=== PATIENT | female | born 1975 | race American Indian/Alaskan Native ===

== ENCOUNTER 2017-03-04 00:15 | Inpatient (IN) | payer OTHER, MEDICARE ==
[2017-03-04] MEDS ORDERED: ATIVAN ONE (01:25)
[2017-03-04] MEDS ORDERED: VALIUM ONE (01:29)
[2017-03-04] MEDS ORDERED: SUBLIMAZE IV ONE ×2 (01:41)
[2017-03-04] MEDS ORDERED: VALIUM IV ONE (01:42)
[2017-03-04] MEDS ORDERED: VERSED IV NR (02:00)
[2017-03-04 02:23] LABS: Hematocrit 42.6 % (30.3-42.9); Hemoglobin 13.7 gm/dl (10.1-14.3); Mean Corpuscular HGB Conc 32 % (30-34); Mean Corpuscular Hemoglobin 27 pg (28-32); Mean Corpuscular Volume 83 fl (79-97); Platelet Count 276 K/mm3 (140-440); Red Blood Count 5.11 M/mm3 (3.65-5.03); Red Cell Distribution Width 13.9 % (13.2-15.2); White Blood Count 5.7 K/mm3 (4.5-11.0)
--- NOTE | 2017-03-04 02:32 | Emergency Department Report ---
ED Seizure HPI - General Chief Complaint: Seizure Stated Complaint: SEIZURE Time Seen by Provider: 03/04/17 01:27 Source: patient, family, EMS Mode of arrival: Stretcher Limitations: Altered Mental Status - History of Present Illness Initial Comments: 41 year old female a past medical history of metastatic breast cancer (stage IV ) patient and family denies metastases to the brain, CHF, CVA, diabetes, CAD, and seizures presents to the hospital complains of multiple seizures prior to arrival. Patient apparently had 7 seizures and 45 minutes. Per EMS patient have a seizure-like activity will purposeful movements. Family members report with the first 4 seizures patient was unresponsive between but then was responsive between subsequent seizures. No post ictal state noted upon patient arrival and patient noted to have a eighth seizure here which was also described by RN as purposeful movements. Family states that patient has seizures when she is in significant pain. She was complaining of pain to her legs prior to seizure episodes. Patient also received news today that there was no further treatment to be offered for her breast cancer and hospice was recommended. Patient has been treated with chemotherapy and radiation past and is currently taking some chemotherapy pill treatment. Patient resides in [place] however her cancer doctor is located here in [facility]. This is her first visit to [facility]. Patient has multiple allergies. Patient takes multiple meds but does not have her med list with her. Patient is a retired nurse. She states she takes Topamax for seizures (and has been compliant) and takes multiple narcotics including Roxicodone, oxycodone, and Vicodin. 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 Patient is requesting fentanyl 75 g for seizures and pain relief. She states that Dilaudid does not manage her pain. Patient received Versed in route and Valium after arrival to the hospital. Patient took her Topamax 400 mg this evening. Patient also has been noncompliant with her insulin 1 year does not take any oral diabetes medication - Related Data Allergies Allergy/AdvReac Type Severity Reaction Status Date / Time albuterol Allergy Anaphylaxis Verified 03/04/17 01:21 aripiprazole [From Abilify] Allergy Anaphylaxis Verified 03/04/17 01:09 bee venom protein (honey bee) Allergy Anaphylaxis Verified 03/04/17 01:09 black pepper Allergy Anaphylaxis Verified 03/04/17 01:21 cocoa butter Allergy Anaphylaxis Verified 03/04/17 01:21 coconut Allergy Anaphylaxis Verified 03/04/17 01:21 iodine Allergy Anaphylaxis Verified 03/04/17 01:09 ketorolac [From Toradol] Allergy Anaphylaxis Verified 03/04/17 01:09 latex Allergy Anaphylaxis Verified 03/04/17 01:09 morphine Allergy Anaphylaxis Verified 03/04/17 01:09 nalbuphine [From Nubain] Allergy Anaphylaxis Verified 03/04/17 01:21 onion Allergy Anaphylaxis Verified 03/04/17 01:21 peanut Allergy Anaphylaxis Verified 03/04/17 01:21 Penicillins Allergy Anaphylaxis Verified 03/04/17 01:09 pregabalin [From Lyrica] Allergy Anaphylaxis Verified 03/04/17 01:21 procaine [From Novocain] Allergy Anaphylaxis Verified 03/04/17 01:09 sulfamethoxazole Allergy Anaphylaxis Verified 03/04/17 01:21 [From Bactrim] tramadol Allergy Anaphylaxis Verified 03/04/17 01:09 trimethoprim [From Bactrim] Allergy Anaphylaxis Verified 03/04/17 01:21 watermelon Allergy Anaphylaxis Verified 03/04/17 01:21 pepperoni Allergy Anaphylaxis Uncoded 03/04/17 01:21 salami Allergy Anaphylaxis Uncoded 03/04/17 01:21 ED Review of Systems ROS: Stated complaint: SEIZURE Other details as noted in HPI Comment: Unobtainable due to pts medical conditions (patient is somewhat drowsy answer some questions) ED Past Medical Hx - Past Medical History Previous Medical History?: Yes Hx CVA: Yes Hx Heart Attack/AMI: Yes Hx Congestive Heart Failure: Yes Hx Diabetes: Yes Hx of Cancer: Yes (multiple mets) Hx Seizures: Yes - Social History Smoking Status: Never Smoker Substance Use Type: Alcohol ED Physical Exam - General Limitations: No Limitations - Other Other exam information: General: No limitations, patient is alert in no acute distress Head exam: Atraumatic, normocephalic Eyes exam: Normal appearance, pupils equal reactive to light, extraocular movements intact ENT: Moist mucous membrane, normal oropharynx Neck exam: Normal inspection, full range of motion, no meningismus nontender Respiratory exam: Clear to auscultation bilateral, no wheezes, rales, crackles Cardiovascular: Normal rate and rhythm Abdomen: Soft, nondistended, and nontender, with normal bowel sounds, no rebound, or guarding Extremity: Full range of motion normal inspection no deformity Back: Normal Inspection, full range of motion, no tenderness Neurologic: Drowsy but arousable to voice and tactile stimulation, no facial droop, no slurred speech, equal hand health policy manager referred dorsiflexion Psychiatric: normal affect, normal mood Skin: Warm, dry, intact ED Course Vital Signs 03/04/17 03/04/17 03/04/17 02:10 02:30 03:19 Pulse Rate 91 H 86 Respiratory 18 19 Rate Blood Pressure 112/72 112/72 O2 Sat by Pulse Oximetry 03/04/17 03/04/17 03/04/17 03:30 03:45 04:00 Pulse Rate 82 85 70 Respiratory 18 18 18 Rate Blood Pressure 92/57 92/58 77/38 O2 Sat by Pulse 93 Oximetry 03/04/17 03/04/17 04:15 04:45 Pulse Rate 70 75 Respiratory 20 20 Rate Blood Pressure 83/45 83/56 O2 Sat by Pulse 100 Oximetry ED Medical Decision Making - Lab Data Result diagrams: 03/04/17 01:53 03/04/17 01:53 Lab Results 03/04/17 03/04/17 03/04/17 Range/Units 01:53 01:53 01:53 WBC 5.7 (4.5-11.0) K/mm3 RBC 5.11 H (3.65-5.03) M/mm3 Hgb 13.7 (10.1-14.3) gm/dl Hct 42.6 (30.3-42.9) % MCV 83 (79-97) fl MCH 27 L (28-32) pg MCHC 32 (30-34) % RDW 13.9 (13.2-15.2) % Plt Count 276 (140-440) K/mm3 Lymph % (Auto) Hydro Plant Operator Add Manual Diff Complete Total Counted 100 Seg Neutrophils % Hydro Plant Operator Seg Neuts % (Manual) 31.0 L (40.0-70.0) % Band Neutrophils % 0 % Lymphocytes % (Manual) 63.0 H (13.4-35.0) % Reactive Lymphs % (Man) 0 % Monocytes % (Manual) 6.0 (0.0-7.3) % Eosinophils % (Manual) 0 (0.0-4.3) % Basophils % (Manual) 0 (0.0-1.8) % Metamyelocytes % 0 % Myelocytes % 0 % Promyelocytes % 0 % Blast Cells % 0 % Nucleated RBC % Not Reportable Seg Neutrophils # Man 1.8 (1.8-7.7) K/mm3 Band Neutrophils # 0.0 K/mm3 Lymphocytes # (Manual) 3.6 (1.2-5.4) K/mm3 Abs React Lymphs (Man) 0.0 K/mm3 Monocytes # (Manual) 0.3 (0.0-0.8) K/mm3 Eosinophils # (Manual) 0.0 (0.0-0.4) K/mm3 Basophils # (Manual) 0.0 (0.0-0.1) K/mm3 Metamyelocytes # 0.0 K/mm3 Myelocytes # 0.0 K/mm3 Promyelocytes # 0.0 K/mm3 Blast Cells # 0.0 K/mm3 WBC Morphology Not Reportable Hypersegmented Neuts Not Reportable Hyposegmented Neuts Not Reportable Hypogranular Neuts Not Reportable Smudge Cells Not Reportable Toxic Granulation Not Reportable Toxic Vacuolation Not Reportable Dohle Bodies Not Reportable Pelger-Huet Anomaly Not Reportable Melissa Rods Not Reportable Platelet Estimate Consistent w auto Clumped Platelets Not Reportable Plt Clumps, EDTA Not Reportable Large Platelets Not Reportable Giant Platelets Not Reportable Platelet Satelliting Not Reportable Plt Morphology Comment Not Reportable RBC Morphology Not Reportable Dimorphic RBCs Not Reportable Polychromasia Not Reportable Hypochromasia Not Reportable Poikilocytosis Not Reportable Anisocytosis Not Reportable Microcytosis Not Reportable Macrocytosis Not Reportable Spherocytes Not Reportable Pappenheimer Bodies Not Reportable Sickle Cells Not Reportable Target Cells Not Reportable Tear Drop Cells Not Reportable Ovalocytes Not Reportable Helmet Cells Not Reportable [place] Bodies Not Reportable Plato Rings Not Reportable Adarsh Cells Not Reportable Bite Cells Not Reportable Crenated Cell Not Reportable Elliptocytes Not Reportable Acanthocytes (Spur) Not Reportable Rouleaux Not Reportable Hemoglobin C Crystals Not Reportable Schistocytes Not Reportable Malaria parasites Not Reportable Phillip Bodies Not Reportable Hem Pathologist Commnt No Sodium 137 (137-145) mmol/L Potassium 4.3 (3.6-5.0) mmol/L Chloride 95.9 L (98-107) mmol/L Carbon Dioxide 21 L (22-30) mmol/L Anion Gap 24 mmol/L BUN 11 (7-17) mg/dL Creatinine 0.9 (0.7-1.2) mg/dL Estimated GFR > 60 ml/min BUN/Creatinine Ratio 12 % Glucose 457 H (65-100) mg/dL POC Glucose (70-105) Calcium 9.3 (8.4-10.2) mg/dL Magnesium 2.10 (1.7-2.3) mg/dL Total Creatine Kinase 60 (30-135) units/L Urine Color (Yellow) Urine Turbidity (Clear) Urine pH (5.0-7.0) Ur Specific [place] (1.003-1.030) Urine Protein (Negative) mg/dL Urine Glucose (UA) (Negative) mg/dL Urine Ketones (Negative) mg/dL Urine Blood (Negative) Urine Nitrite (Negative) Urine Bilirubin (Negative) Urine Urobilinogen (<2.0) mg/dL Ur Leukocyte Esterase (Negative) Urine WBC (Auto) (0.0-6.0) /HPF Urine RBC (Auto) (0.0-6.0) /HPF U Epithel Cells (Auto) (0-13.0) /HPF 03/04/17 03/04/17 Range/Units 03:27 03:29 WBC (4.5-11.0) K/mm3 RBC (3.65-5.03) M/mm3 Hgb (10.1-14.3) gm/dl Hct (30.3-42.9) % MCV (79-97) fl MCH (28-32) pg MCHC (30-34) % RDW (13.2-15.2) % Plt Count (140-440) K/mm3 Lymph % (Auto) Add Manual Diff Total Counted Seg Neutrophils % Seg Neuts % (Manual) (40.0-70.0) % Band Neutrophils % % Lymphocytes % (Manual) (13.4-35.0) % Reactive Lymphs % (Man) % Monocytes % (Manual) (0.0-7.3) % Eosinophils % (Manual) (0.0-4.3) % Basophils % (Manual) (0.0-1.8) % Metamyelocytes % % Myelocytes % % Promyelocytes % % Blast Cells % % Nucleated RBC % Seg Neutrophils # Man (1.8-7.7) K/mm3 Band Neutrophils # K/mm3 Lymphocytes # (Manual) (1.2-5.4) K/mm3 Abs React Lymphs (Man) K/mm3 Monocytes # (Manual) (0.0-0.8) K/mm3 Eosinophils # (Manual) (0.0-0.4) K/mm3 Basophils # (Manual) (0.0-0.1) K/mm3 Metamyelocytes # K/mm3 Myelocytes # K/mm3 Promyelocytes # K/mm3 Blast Cells # K/mm3 WBC Morphology Hypersegmented Neuts Hyposegmented Neuts Hypogranular Neuts Smudge Cells Toxic Granulation Toxic Vacuolation Dohle Bodies Pelger-Huet Anomaly Melissa Rods Platelet Estimate Clumped Platelets Plt Clumps, EDTA Large Platelets Giant Platelets Platelet Satelliting Plt Morphology Comment RBC Morphology Dimorphic RBCs Polychromasia Hypochromasia Poikilocytosis Anisocytosis Microcytosis Macrocytosis Spherocytes Pappenheimer Bodies Sickle Cells Target Cells Tear Drop Cells Ovalocytes Helmet Cells [place] Bodies Plato Rings Keyser Cells Bite Cells Crenated Cell Elliptocytes Acanthocytes (Spur) Rouleaux Hemoglobin C Crystals Schistocytes Malaria parasites Phillip Bodies Hem Pathologist Commnt Sodium (137-145) mmol/L Potassium (3.6-5.0) mmol/L Chloride (98-107) mmol/L Carbon Dioxide (22-30) mmol/L Anion Gap mmol/L BUN (7-17) mg/dL Creatinine (0.7-1.2) mg/dL Estimated GFR ml/min BUN/Creatinine Ratio % Glucose (65-100) mg/dL POC Glucose 385 H (70-105) Calcium (8.4-10.2) mg/dL Magnesium (1.7-2.3) mg/dL Total Creatine Kinase (30-135) units/L Urine Color Yellow (Yellow) Urine Turbidity Clear (Clear) Urine pH 6.0 (5.0-7.0) Ur Specific [place] 1.010 (1.003-1.030) Urine Protein <15 mg/dl (Negative) mg/dL Urine Glucose (UA) >=500 (Negative) mg/dL Urine Ketones Neg (Negative) mg/dL Urine Blood Neg (Negative) Urine Nitrite Pos (Negative) Urine Bilirubin Neg (Negative) Urine Urobilinogen < 2.0 (<2.0) mg/dL Ur Leukocyte Esterase Neg (Negative) Urine WBC (Auto) 1.0 (0.0-6.0) /HPF Urine RBC (Auto) 2.0 (0.0-6.0) /HPF U Epithel Cells (Auto) < 1.0 (0-13.0) /HPF - Radiology Data Radiology results: report reviewed (ct head: naf) - Medical Decision Making Patient is still receiving 500 mL bolus at disposition for hypotension likely induced by benzos and fentanyl. No other overt signs of sepsis. Macrobid order for UTI patient states she feels terrible and therefore will be admitted to the hospital for further treatment. Patient does not know her ejection fraction but thinks is in the middle range. Patient has hyperglycemia but no ketones in the urine suggestive of DKA - Differential Diagnosis pseudoseizures, electrolyte abnormality, brain metastases, Critical Care Time: No Critical care attestation.: If time is entered above; I have spent that time in minutes in the direct care of this critically ill patient, excluding procedure time. ED Disposition Clinical Impression: Metastatic breast cancer, Recurrent seizures, Chronic pain, UTI (urinary tract infection), Uncontrolled diabetes mellitus, Noncompliance with medication regimen Disposition: 09 OP ADMIT IP TO THIS HOSP Is pt being admited?: Yes Does the pt Need Aspirin: No Condition: Stable Time of Disposition: 05:06 (Dr Morales/hosp)
[2017-03-04 02:36] LABS: Anion Gap 24 mmol/L; BUN/Creatinine Ratio 12; Blood Urea Nitrogen 11 mg/dL (7-17); Calcium 9.3 mg/dL (8.4-10.2); Carbon Dioxide 21 mmol/L (22-30); Chloride 95.9 mmol/L (98-107); Glucose 457 mg/dL (65-100); Potassium 4.3 mmol/L (3.6-5.0); Sodium 137 mmol/L (137-145)
--- NOTE | 2017-03-04 02:55 | Cat Scan Report ---
FINAL REPORT EXAM: CT HEAD/BRAIN WO CON HISTORY: multiple sz, hx of metastatic breast ca TECHNIQUE: Routine axial images were obtained of the brain without IV contrast. There are no previous studies available for comparison. FINDINGS: There are no attenuation abnormalities. The ventricular system is appropriate in size and is symmetric. The posterior fossa structures appear normal. The visualized sinuses are clear. The mastoid air cells are well pneumatized IMPRESSION: Normal exam.
[2017-03-04] MEDS ORDERED: NACL 0.9% 500 ML 500 ML IV ONE (03:39)
[2017-03-04] MEDS ORDERED: ZOFRAN ONE (04:11)
[2017-03-04 04:30] LABS: Bilirubin,Urine NEG (Negative); Blood,Urine NEG (Negative); Ketones,Urine NEG (Negative); Leukocyte Esterase,Urine NEG (Negative); Nitrite,Urine POS (Negative); Protein,Urine <15 mg/dL mg/dL (Negative); Urobilinogen,Urine < 2.0 mg/dL (<2.0)
[2017-03-04] MEDS ORDERED: ZOFRAN IV ONE (04:30)
[2017-03-04 04:37] LABS: Basophils % (Manual) 0 % (0.0-1.8); Blastocytes % (Manual) 0 %; Diff Status Complete; Eosinophils % (Manual) 0 % (0.0-4.3); Platelet Estimate Consistent w Auto
[2017-03-04] MEDS ORDERED: MACROBID PO ONE (05:00)
[2017-03-04] MEDS ORDERED: TYLENOL PO PRN (05:59)
[2017-03-04] MEDS ORDERED: ZOFRAN IV PRN (05:59)
[2017-03-04] MEDS ORDERED: D50W (25GM) Syringe IV PRN (06:12)
--- NOTE | 2017-03-04 06:17 | History and Physical Report ---
History of Present Illness Date of examination: 03/04/17 History of present illness: 41-year-old woman with a history of metastatic breast cancer, CHF, CVA, seizure , diabetes was brought to the emergency room because she had multiple seizure at home. Patient states she does not recall events after. emergency room physician she had 7 seizures prior to arrival, 1 in the emergency room, purposeful movements during the seizure described by EMS and by the nurse in the emergency room. There was no postictal state. Patient was told today that she needs to consider hospice secondary to breast cancer Review Of Systems: Constitutional: no weight loss Ears, eyes, nose, mouth and throat: no nasal congestion, no nasal discharge, no sinus pressure, blurry vision, diplopia Neck: No neck pain or rigidity. Cardiovascular: chest pain, orthopnea, palpitations Respiratory: No shortness of breath, cough Gastrointestinal: abdominal pain, hematochezia Genitourinary : no dysuria, frequency , hematuria Musculoskeletal: no muscle ache Integumentary: no rash, no pruritis Neurological: no parathesias, focal weakness Endocrine: no cold or heat intolerance, no polyuria or polydipsia Hematologic/Lymphatic: no easy bruising, no easy bleeding, no gland swelling Allergic/Immunologic: no urticaria, no angioedema. PAST MEDICAL HISTORY:metastatic breast cancer, CHF, CVA, seizure, diabetes PAST SURGICAL HISTORY: Total hysterectomy, lumpectomy on the left, cholecystectomy FAMILY HISTORY: Hypertension SOCIAL HISTORY: Denies alcohol, tobacco, drugs Medications and Allergies Allergies Allergy/AdvReac Type Severity Reaction Status Date / Time albuterol Allergy Anaphylaxis Verified 03/04/17 01:21 aripiprazole [From Abilify] Allergy Anaphylaxis Verified 03/04/17 01:09 bee venom protein (honey bee) Allergy Anaphylaxis Verified 03/04/17 01:09 black pepper Allergy Anaphylaxis Verified 03/04/17 01:21 cocoa butter Allergy Anaphylaxis Verified 03/04/17 01:21 coconut Allergy Anaphylaxis Verified 03/04/17 01:21 iodine Allergy Anaphylaxis Verified 03/04/17 01:09 ketorolac [From Toradol] Allergy Anaphylaxis Verified 03/04/17 01:09 latex Allergy Anaphylaxis Verified 03/04/17 01:09 lidocaine Allergy Anaphylaxis Verified 03/04/17 05:34 morphine Allergy Anaphylaxis Verified 03/04/17 01:09 nalbuphine [From Nubain] Allergy Anaphylaxis Verified 03/04/17 01:21 onion Allergy Anaphylaxis Verified 03/04/17 01:21 peanut Allergy Anaphylaxis Verified 03/04/17 01:21 Penicillins Allergy Anaphylaxis Verified 03/04/17 01:09 pregabalin [From Lyrica] Allergy Anaphylaxis Verified 03/04/17 01:21 procaine [From Novocain] Allergy Anaphylaxis Verified 03/04/17 01:09 sulfamethoxazole Allergy Anaphylaxis Verified 03/04/17 01:21 [From Bactrim] tramadol Allergy Anaphylaxis Verified 03/04/17 01:09 trimethoprim [From Bactrim] Allergy Anaphylaxis Verified 03/04/17 01:21 watermelon Allergy Anaphylaxis Verified 03/04/17 01:21 pepperoni Allergy Anaphylaxis Uncoded 03/04/17 01:21 salami Allergy Anaphylaxis Uncoded 03/04/17 01:21 Home Medications Medication Instructions Recorded Confirmed Last Taken Type Gabapentin [Neurontin] 1,200 mg PO BID 03/04/17 03/04/17 Unknown History HYDROcodone/ACETAMINOPHEN 1 each PO BID PRN 03/04/17 03/04/17 Unknown History [Hydrocodon-Acetaminophn 10-325] Lisinopril [Prinivil] 10 mg PO QDAY 03/04/17 03/04/17 Unknown History Magnesium Oxide [Mag-Oxide 200 mg PO DAILY 03/04/17 03/04/17 Unknown History Magnesium] Oxycodone HCl [Roxicodone] 30 mg PO DAILY 03/04/17 03/04/17 Unknown History Oxycodone HCl/Acetaminophen 1 each PO QID 03/04/17 03/04/17 Unknown History [Percocet 10/325 mg] Propranolol [Inderal] 20 mg PO BID 03/04/17 03/04/17 Unknown History Singulair 10 mg PO DAILY 03/04/17 03/04/17 03/02/17 History Topiramate [Topamax] 400 mg PO BID 03/04/17 03/04/17 03/03/17 History Active Meds: Active Medications Acetaminophen (Tylenol) 650 mg PO Q4H PRN PRN Reason: Pain MILD(1-3)/Fever >100.5/ROTH Enoxaparin Sodium (Lovenox) 30 mg SUB-Q QDAY CONI Ondansetron HCl (Zofran) 4 mg IV Q8H PRN PRN Reason: N/V unrelieved by Reglan Exam - Physical Exam Narrative exam: Gen. appearance: Patient lying in bed in no acute distress HEENT: Normocephalic/atraumatic, pupils equal round reactive to light, extra alkaline movement intact, no scleral icterus, no JVD or thyromegaly or nodule, neck is supple, mucous membrane moist, no erythema or exudate Heart: S1-S2, regular rate and rhythm Lungs: Clear to auscultation bilateral breathing comfortable Abdomen: Positive bowel sounds, nontender, nondistended, no organomegaly Extremities: No edema, cyanosis, clubbing Neuro:: Oriented 3 , cranial nerves II-12 intact, speech, motor intact Skin: No rash, nodules, warm dry - Constitutional Vitals: Temp Pulse Resp BP Pulse Ox 87 16 110/72 92 03/04/17 05:45 03/04/17 05:45 03/04/17 05:45 03/04/17 05:45 Results - Labs CBC & Chem 7: 03/04/17 01:53 03/04/17 01:53 Labs: Abnormal lab results 03/04/17 03/04/17 03/04/17 Range/Units 01:53 01:53 03:27 RBC 5.11 H (3.65-5.03) M/mm3 MCH 27 L (28-32) pg Seg Neuts % (Manual) 31.0 L (40.0-70.0) % Lymphocytes % (Manual) 63.0 H (13.4-35.0) % Chloride 95.9 L (98-107) mmol/L Carbon Dioxide 21 L (22-30) mmol/L Glucose 457 H (65-100) mg/dL POC Glucose 385 H (70-105) 03/04/17 Range/Units 05:27 RBC (3.65-5.03) M/mm3 MCH (28-32) pg Seg Neuts % (Manual) (40.0-70.0) % Lymphocytes % (Manual) (13.4-35.0) % Chloride (98-107) mmol/L Carbon Dioxide (22-30) mmol/L Glucose (65-100) mg/dL POC Glucose 303 H (70-105) - Imaging and Cardiology EKG: image reviewed CT Scan - head: report reviewed Assessment and Plan Assessment Seizure, acute on chronic, ?pseudoseizure Metastatic breast cancer CHF, stable History of CVA Diabetes type 2 Plan Admit to medicine Start IV Ativan as needed for seizure Consult neurology Check fingersticks and initiate insulin sliding scale Continue for preoperative medications DVT prophylaxis
[2017-03-04] MEDS ORDERED: ATIVAN IV PRN (06:20)
[2017-03-04] MEDS: NOVOLOG SUB-Q SCH ×4 (07:43→23:44)
[2017-03-04] MEDS ORDERED: NOVOLOG SUB-Q ONE (07:43)
[2017-03-04] MEDS ORDERED: LOVENOX SUB-Q SCH (10:00)
[2017-03-04] MEDS: LOVENOX SUB-Q SCH (10:15)
--- NOTE | 2017-03-04 13:30 | Consultation ---
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 rec omemend that we try get EEG neuro exam is normal at present Medications and Allergies Allergies Allergy/AdvReac Type Severity Reaction Status Date / Time albuterol Allergy Anaphylaxis Verified 03/04/17 01:21 aripiprazole [From Abilify] Allergy Anaphylaxis Verified 03/04/17 01:09 bee venom protein (honey bee) Allergy Anaphylaxis Verified 03/04/17 01:09 black pepper Allergy Anaphylaxis Verified 03/04/17 01:21 cocoa butter Allergy Anaphylaxis Verified 03/04/17 01:21 coconut Allergy Anaphylaxis Verified 03/04/17 01:21 iodine Allergy Anaphylaxis Verified 03/04/17 01:09 ketorolac [From Toradol] Allergy Anaphylaxis Verified 03/04/17 01:09 latex Allergy Anaphylaxis Verified 03/04/17 01:09 lidocaine Allergy Anaphylaxis Verified 03/04/17 05:34 morphine Allergy Anaphylaxis Verified 03/04/17 01:09 nalbuphine [From Nubain] Allergy Anaphylaxis Verified 03/04/17 01:21 onion Allergy Anaphylaxis Verified 03/04/17 01:21 peanut Allergy Anaphylaxis Verified 03/04/17 01:21 Penicillins Allergy Anaphylaxis Verified 03/04/17 01:09 pregabalin [From Lyrica] Allergy Anaphylaxis Verified 03/04/17 01:21 procaine [From Novocain] Allergy Anaphylaxis Verified 03/04/17 01:09 sulfamethoxazole Allergy Anaphylaxis Verified 03/04/17 01:21 [From Bactrim] tramadol Allergy Anaphylaxis Verified 03/04/17 01:09 trimethoprim [From Bactrim] Allergy Anaphylaxis Verified 03/04/17 01:21 watermelon Allergy Anaphylaxis Verified 03/04/17 01:21 pepperoni Allergy Anaphylaxis Uncoded 03/04/17 01:21 salami Allergy Anaphylaxis Uncoded 03/04/17 01:21 Home Medications Medication Instructions Recorded Confirmed Last Taken Type Gabapentin [Neurontin] 1,200 mg PO BID 03/04/17 03/04/17 Unknown History HYDROcodone/ACETAMINOPHEN 1 each PO BID PRN 03/04/17 03/04/17 Unknown History [Hydrocodon-Acetaminophn 10-325] Lisinopril [Prinivil] 10 mg PO QDAY 03/04/17 03/04/17 Unknown History Magnesium Oxide [Mag-Oxide 200 mg PO DAILY 03/04/17 03/04/17 Unknown History Magnesium] Oxycodone HCl [Roxicodone] 30 mg PO DAILY 03/04/17 03/04/17 Unknown History Oxycodone HCl/Acetaminophen 1 each PO QID 03/04/17 03/04/17 Unknown History [Percocet 10/325 mg] Propranolol [Inderal] 20 mg PO BID 03/04/17 03/04/17 Unknown History Topiramate [Topamax] 400 mg PO BID 03/04/17 03/04/17 03/03/17 History Active Meds: Active Medications Acetaminophen (Tylenol) 650 mg PO Q4H PRN PRN Reason: Pain MILD(1-3)/Fever >100.5/ROTH Dextrose (D50w (25gm) Syringe) 50 ml IV PRN PRN PRN Reason: Hypoglycemia Enoxaparin Sodium (Lovenox) 40 mg SUB-Q QDAY@1000 CONI Last Admin: 03/04/17 10:15 Dose: 40 mg Insulin Aspart (Novolog) 0 units SUB-Q ACHS CONI PRN Reason: Protocol Last Admin: 03/04/17 12:54 Dose: 6 units Lorazepam (Ativan) 1 mg IV Q4H PRN PRN Reason: Seizures Ondansetron HCl (Zofran) 4 mg IV Q8H PRN PRN Reason: N/V unrelieved by Reglan Exam - Constitutional Vitals: Temp Pulse Resp BP Pulse Ox 98.4 F 78 20 112/71 95 03/04/17 08:13 03/04/17 08:13 03/04/17 08:13 03/04/17 08:13 03/04/17 08:39 Results - Labs CBC & Chem 7: 03/04/17 01:53 03/04/17 01:53 Labs: Abnormal lab results 03/04/17 03/04/17 Range/Units 07:41 11:46 POC Glucose 352 H 284 H (70-105)
[2017-03-04] MEDS ORDERED: PERCOCET 5/325 PO PRN (18:39)
[2017-03-04] MEDS: PERCOCET 5/325 PO PRN (23:32)
[2017-03-04] MEDS: TOPAMAX PO SCH (23:44)
[2017-03-05] MEDS: PERCOCET 5/325 PO PRN ×2 (06:24→14:12)
[2017-03-05 07:52] LABS: Hematocrit 38.2 % (30.3-42.9); Hemoglobin 12.6 gm/dl (10.1-14.3); Mean Corpuscular HGB Conc 33 % (30-34); Mean Corpuscular Hemoglobin 27 pg (28-32); Mean Corpuscular Volume 83 fl (79-97); Platelet Count 256 K/mm3 (140-440); Red Blood Count 4.61 M/mm3 (3.65-5.03); Red Cell Distribution Width 13.8 % (13.2-15.2)
[2017-03-05 08:06] VITALS: BP 115/75
[2017-03-05 08:09] LABS: Anion Gap 19 mmol/L; BUN/Creatinine Ratio 23; Blood Urea Nitrogen 14 mg/dL (7-17); Calcium 8.7 mg/dL (8.4-10.2); Carbon Dioxide 23 mmol/L (22-30); Chloride 101.3 mmol/L (98-107); Glucose 324 mg/dL (65-100); Potassium 4.1 mmol/L (3.6-5.0); Sodium 139 mmol/L (137-145)
[2017-03-05] MEDS: NOVOLOG SUB-Q SCH ×2 (09:07→13:28)
[2017-03-05 09:10] LABS: Basophils % (Manual) 0 % (0.0-1.8); Blastocytes % (Manual) 0 %
[2017-03-05 09:11] LABS: Anisocytosis 1+; Diff Status Complete; Platelet Estimate Cons
[2017-03-05] MEDS: TOPAMAX PO SCH (09:18)
[2017-03-05] MEDS: LOVENOX SUB-Q SCH (09:18)
[2017-03-05] MEDS ORDERED: NEURONTIN PO SCH ×2 (14:00)
--- NOTE | 2017-03-05 16:16 | Progress Note ---
History Interval history: asking nursing staff for pain meds constantly flat affect, difficult to carry a conversation with her, history provided by her inconsistent and raising multiple questions; stating Hospitalist Physical - Constitutional Vitals: Temp Pulse Resp BP Pulse Ox 98.2 F 65 18 115/75 94 03/05/17 08:00 03/05/17 08:00 03/05/17 13:31 03/05/17 08:00 03/05/17 08:00 Results - Labs CBC & Chem 7: 03/05/17 06:55 03/05/17 06:55 Labs: Laboratory Last Values WBC 5.0 K/mm3 (4.5-11.0) 03/05/17 06:55 RBC 4.61 M/mm3 (3.65-5.03) 03/05/17 06:55 Hgb 12.6 gm/dl (10.1-14.3) 03/05/17 06:55 Hct 38.2 % (30.3-42.9) 03/05/17 06:55 MCV 83 fl (79-97) 03/05/17 06:55 MCH 27 pg (28-32) L 03/05/17 06:55 MCHC 33 % (30-34) 03/05/17 06:55 RDW 13.8 % (13.2-15.2) 03/05/17 06:55 Plt Count 256 K/mm3 (140-440) 03/05/17 06:55 Lymph % (Auto) Fingerprint Expert 03/04/17 01:53 Add Manual Diff Complete 03/05/17 06:55 Total Counted 100 03/05/17 06:55 Seg Neutrophils % Fingerprint Expert 03/05/17 06:55 Seg Neuts % (Manual) 17.0 % (40.0-70.0) L 03/05/17 06:55 Band Neutrophils % 0 % 03/05/17 06:55 Lymphocytes % (Manual) 68.0 % (13.4-35.0) H 03/05/17 06:55 Reactive Lymphs % (Man) 2.0 % 03/05/17 06:55 Monocytes % (Manual) 10.0 % (0.0-7.3) H 03/05/17 06:55 Eosinophils % (Manual) 3.0 % (0.0-4.3) 03/05/17 06:55 Basophils % (Manual) 0 % (0.0-1.8) 03/05/17 06:55 Metamyelocytes % 0 % 03/05/17 06:55 Myelocytes % 0 % 03/05/17 06:55 Promyelocytes % 0 % 03/05/17 06:55 Blast Cells % 0 % 03/05/17 06:55 Nucleated RBC % Not Reportable 03/05/17 06:55 Seg Neutrophils # Man 0.9 K/mm3 (1.8-7.7) L 03/05/17 06:55 Band Neutrophils # 0.0 K/mm3 03/05/17 06:55 Lymphocytes # (Manual) 3.4 K/mm3 (1.2-5.4) 03/05/17 06:55 Abs React Lymphs (Man) 0.1 K/mm3 03/05/17 06:55 Monocytes # (Manual) 0.5 K/mm3 (0.0-0.8) 03/05/17 06:55 Eosinophils # (Manual) 0.2 K/mm3 (0.0-0.4) 03/05/17 06:55 Basophils # (Manual) 0.0 K/mm3 (0.0-0.1) 03/05/17 06:55 Metamyelocytes # 0.0 K/mm3 03/05/17 06:55 Myelocytes # 0.0 K/mm3 03/05/17 06:55 Promyelocytes # 0.0 K/mm3 03/05/17 06:55 Blast Cells # 0.0 K/mm3 03/05/17 06:55 WBC Morphology Not Reportable 03/05/17 06:55 Hypersegmented Neuts Not Reportable 03/05/17 06:55 Hyposegmented Neuts Not Reportable 03/05/17 06:55 Hypogranular Neuts Not Reportable 03/05/17 06:55 Smudge Cells Not Reportable 03/05/17 06:55 Toxic Granulation Not Reportable 03/05/17 06:55 Toxic Vacuolation Not Reportable 03/05/17 06:55 Dohle Bodies Not Reportable 03/05/17 06:55 Pelger-Huet Anomaly Not Reportable 03/05/17 06:55 Melissa Rods Not Reportable 03/05/17 06:55 Platelet Estimate Cons 03/05/17 06:55 Clumped Platelets Not Reportable 03/05/17 06:55 Plt Clumps, EDTA Not Reportable 03/05/17 06:55 Large Platelets Not Reportable 03/05/17 06:55 Giant Platelets Not Reportable 03/05/17 06:55 Platelet Satelliting Not Reportable 03/05/17 06:55 Plt Morphology Comment Not Reportable 03/05/17 06:55 RBC Morphology Not Reportable 03/05/17 06:55 Dimorphic RBCs Not Reportable 03/05/17 06:55 Polychromasia Not Reportable 03/05/17 06:55 Hypochromasia Not Reportable 03/05/17 06:55 Poikilocytosis Not Reportable 03/05/17 06:55 Anisocytosis 1+ 03/05/17 06:55 Microcytosis Not Reportable 03/05/17 06:55 Macrocytosis Not Reportable 03/05/17 06:55 Spherocytes Not Reportable 03/05/17 06:55 Pappenheimer Bodies Not Reportable 03/05/17 06:55 Sickle Cells Not Reportable 03/05/17 06:55 Target Cells Not Reportable 03/05/17 06:55 Tear Drop Cells Not Reportable 03/05/17 06:55 Ovalocytes Not Reportable 03/05/17 06:55 Helmet Cells Not Reportable 03/05/17 06:55 Wyatt-Andres Bodies Not Reportable 03/05/17 06:55 [place] Rings Not Reportable 03/05/17 06:55 [place] Cells Not Reportable 03/05/17 06:55 Bite Cells Not Reportable 03/05/17 06:55 Crenated Cell Not Reportable 03/05/17 06:55 Elliptocytes Not Reportable 03/05/17 06:55 Acanthocytes (Spur) Not Reportable 03/05/17 06:55 Rouleaux Not Reportable 03/05/17 06:55 Hemoglobin C Crystals Not Reportable 03/05/17 06:55 Schistocytes Not Reportable 03/05/17 06:55 Malaria parasites Not Reportable 03/05/17 06:55 Phillip Bodies Not Reportable 03/05/17 06:55 Hem Pathologist Commnt No 03/05/17 06:55 Sodium 139 mmol/L (137-145) 03/05/17 06:55 Potassium 4.1 mmol/L (3.6-5.0) 03/05/17 06:55 Chloride 101.3 mmol/L (98-107) 03/05/17 06:55 Carbon Dioxide 23 mmol/L (22-30) 03/05/17 06:55 Anion Gap 19 mmol/L 03/05/17 06:55 BUN 14 mg/dL (7-17) 03/05/17 06:55 Creatinine 0.6 mg/dL (0.7-1.2) L 03/05/17 06:55 Estimated GFR > 60 ml/min 03/05/17 06:55 BUN/Creatinine Ratio 23 % 03/05/17 06:55 Glucose 324 mg/dL (65-100) H 03/05/17 06:55 POC Glucose 353 (70-105) H 03/05/17 11:18 Calcium 8.7 mg/dL (8.4-10.2) 03/05/17 06:55 Magnesium 2.10 mg/dL (1.7-2.3) 03/04/17 01:53 Total Creatine Kinase 60 units/L (30-135) 03/04/17 01:53 Urine Color Yellow (Yellow) 03/04/17 03:29 Urine Turbidity Clear (Clear) 03/04/17 03:29 Urine pH 6.0 (5.0-7.0) 03/04/17 03:29 Ur Specific [place] 1.010 (1.003-1.030) 03/04/17 03:29 Urine Protein <15 mg/dl mg/dL (Negative) 03/04/17 03:29 Urine Glucose (UA) >=500 mg/dL (Negative) 03/04/17 03:29 Urine Ketones Neg mg/dL (Negative) 03/04/17 03:29 Urine Blood Neg (Negative) 03/04/17 03:29 Urine Nitrite Pos (Negative) 03/04/17 03:29 Urine Bilirubin Neg (Negative) 03/04/17 03:29 Urine Urobilinogen < 2.0 mg/dL (<2.0) 03/04/17 03:29 Ur Leukocyte Esterase Neg (Negative) 03/04/17 03:29 Urine WBC (Auto) 1.0 /HPF (0.0-6.0) 03/04/17 03:29 Urine RBC (Auto) 2.0 /HPF (0.0-6.0) 03/04/17 03:29 U Epithel Cells (Auto) < 1.0 /HPF (0-13.0) 03/04/17 03:29
--- NOTE | 2017-03-05 19:35 | Discharge Summary ---
Providers - Providers Date of Admission: 03/04/17 05:59 Date of discharge: 03/05/17 Attending physician: LESLYE AGUILAR Hospitalization Condition: Stable Hospital course: After asked about PCP and neurologist information in order for us to obtain her medical records left AMA. Disposition: DC-07 LEFT AGAINST MED ADVICE Core Measure Documentation - Palliative Care Palliative Care/ Comfort Measures: Not Applicable - Core Measures Any of the following diagnoses?: none Exam - Constitutional Vitals: Temp Pulse Resp BP Pulse Ox 98.2 F 65 18 115/75 94 03/05/17 08:00 03/05/17 08:00 03/05/17 13:31 03/05/17 08:00 03/05/17 08:00 Plan Follow up with: JOSE SUMNER MD [Other] - 7 Days
== END 2017-03-05 14:45 | disposition left against medical advice (07) | DRG 101 ==
LOC: ED 00:15 → 3A 05:59
PROVIDERS: ADMIT Internal Medicine; ATTEND Internal Medicine
DX: R56.9 Unspecified convulsions (principal); N39.0 Urinary tract infection, site not specified; I50.9 Heart failure, unspecified; E11.9 Type 2 diabetes mellitus without complications; C50.919 Malignant neoplasm of unspecified site of unspecified female breast; I25.2 Old myocardial infarction; I25.10 Atherosclerotic heart disease of native coronary artery without angina pectoris; G89.29 Other chronic pain; Z88.6 Allergy status to analgesic agent; Z91.030 Bee allergy status; Z91.040 Latex allergy status; Z88.5 Allergy status to narcotic agent; Z91.010 Allergy to peanuts; Z88.0 Allergy status to penicillin; Z88.2 Allergy status to sulfonamides; Z88.8 Allergy status to other drugs, medicaments and biological substances; Z91.018 Allergy to other foods; Z91.14 Patient's other noncompliance with medication regimen; Z90.710 Acquired absence of both cervix and uterus; Z86.73 Personal history of transient ischemic attack (TIA), and cerebral infarction without residual deficits; Z90.49 Acquired absence of other specified parts of digestive tract; Z53.21 Procedure and treatment not carried out due to patient leaving prior to being seen by health care provider; I11.0 Hypertensive heart disease with heart failure
CPT/HCPCS: 36415; 70450; 80048; 81001; 82550; 82962; 83735; 85007; 85025; 87086; 95816; 96374; 96375; 99285; J1650; J1815; J2060; J2405; J3010; J3360; J7040

== ENCOUNTER 2017-05-19 01:18 | Inpatient (IN) | payer OTHER, MEDICARE ==
[2017-05-19] MEDS ORDERED: BENADRYL IV ONE (03:20)
[2017-05-19 03:24] LABS: Hematocrit 43.7 % (30.3-42.9); Hemoglobin 14.2 gm/dl (10.1-14.3); Mean Corpuscular HGB Conc 33 % (30-34); Mean Corpuscular Hemoglobin 27 pg (28-32); Mean Corpuscular Volume 83 fl (79-97); Platelet Count 258 K/mm3 (140-440); Red Blood Count 5.29 M/mm3 (3.65-5.03); Red Cell Distribution Width 13.9 % (13.2-15.2)
[2017-05-19] MEDS ORDERED: BENADRYL ONE (03:24)
[2017-05-19 03:45] LABS: BUN/Creatinine Ratio 20; Blood Urea Nitrogen 14 mg/dL (7-17); Calcium 8.7 mg/dL (8.4-10.2); Hemolysis Index 11
--- NOTE | 2017-05-19 06:42 | Emergency Department Report ---
HPI - General Chief Complaint: Seizure Time Seen by Provider: 05/19/17 06:07 - HPI HPI: This is a 41-year-old Afro-[place] female presents to the emergency department by EMS from home after she allegedly had a seizure. Patient says that she was having some chest tightness and possibly some anxiety after she received some bad news from her family via phone. 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 She takes Topamax and says she has been compliant. She also has a history of pancreatic cancer. She says she has "passed the point" of any type of chemotherapy or radiation. She has a primary care physician up in [facility]. 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 She did not take anything and was not given anything for her symptoms prior to presentation. ED Past Medical Hx - Past Medical History Previous Medical History?: Yes Hx Hypertension: Yes Hx CVA: Yes (x2) Hx Heart Attack/AMI: Yes (X2 no stend place.) Hx Congestive Heart Failure: Yes Hx Diabetes: Yes Hx Seizures: Yes Hx Asthma: Yes Additional medical history: tumor on pancreas - Surgical History Past Surgical History?: Yes Additional Surgical History: lymph nodes removed from left side - Social History Smoking Status: Current Some Day Smoker Substance Use Type: None - Medications Home Medications: Home Medications Medication Instructions Recorded Confirmed Last Taken Type Gabapentin [Neurontin] 1,200 mg PO BID 03/04/17 03/24/17 Unknown History HYDROcodone/ACETAMINOPHEN 1 each PO BID PRN 03/04/17 03/24/17 Unknown History [Hydrocodon-Acetaminophn 10-325] Lisinopril [Prinivil] 10 mg PO QDAY 03/04/17 03/24/17 Unknown History Magnesium Oxide [Mag-Oxide 200 mg PO DAILY 03/04/17 03/24/17 Unknown History Magnesium] Montelukast [Singulair] 10 mg PO DAILY 03/04/17 03/24/17 03/02/17 History Oxycodone HCl [Roxicodone] 30 mg PO DAILY 03/04/17 03/24/17 Unknown History Oxycodone HCl/Acetaminophen 1 each PO QID 03/04/17 03/24/17 Unknown History [Percocet 10/325 mg] Propranolol [Inderal] 20 mg PO BID 03/04/17 03/24/17 Unknown History Topiramate [Topamax] 400 mg PO BID 03/04/17 03/24/17 03/03/17 History fentaNYL AMP [Sublimaze Nicu] 75 mcg IM QMONTH 03/24/17 03/24/17 Unknown History ED Review of Systems ROS: Stated complaint: SEIZURES Other details as noted in HPI Comment: All other systems reviewed and negative Constitutional: denies: chills, fever Eyes: denies: eye pain, eye discharge, vision change ENT: denies: ear pain, throat pain Respiratory: denies: cough, shortness of breath, wheezing Cardiovascular: chest pain. denies: palpitations Gastrointestinal: denies: abdominal pain, nausea, diarrhea Genitourinary: denies: urgency, dysuria, discharge Musculoskeletal: denies: back pain, joint swelling, arthralgia Skin: denies: rash, lesions Neurological: other (seizure). denies: headache Physical Exam - Physical Exam Vital Signs: Vital Signs 05/19/17 02:33 Temperature 98.1 F Pulse Rate 99 H Respiratory 14 Rate Blood Pressure 135/94 Blood Pressure 135/94 [Right] O2 Sat by Pulse 97 Oximetry Physical Exam: GENERAL: The patient is well-developed well-nourished. HENT: Normocephalic. Atraumatic. Patient has moist mucous membranes. EYES: Extraocular motions are intact. Pupils equal reactive to light bilaterally. NECK: Supple. Trachea is midline. CHEST/LUNGS: Clear to auscultation. There is no respiratory distress noted. HEART/CARDIOVASCULAR: Regular. There is no tachycardia. There is no murmur. ABDOMEN: Abdomen is soft, nontender. Patient has normal bowel sounds. There is no abdominal distention. SKIN: Skin is warm and dry. NEURO: The patient is awake, alert, and oriented. The patient is cooperative. The patient has no focal neurologic deficits. The patient has normal speech. MUSCULOSKELETAL: There is no tenderness or deformity. There is no limitation range of motion. There is no evidence of acute injury. ED Course Vital Signs 05/19/17 02:33 Temperature 98.1 F Pulse Rate 99 H Respiratory 14 Rate Blood Pressure 135/94 Blood Pressure 135/94 [Right] O2 Sat by Pulse 97 Oximetry ED Medical Decision Making - Lab Data Result diagrams: 05/19/17 03:04 05/19/17 03:04 - EKG Data -: EKG Interpreted by Me EKG shows normal: sinus rhythm, axis, intervals, QRS complexes (LVH), ST-T waves Rate: normal - EKG Data When compared to previous EKG there are: previous EKG unavailable Interpretation: LVH - Radiology Data Radiology results: image reviewed interpreted by me: Chest x-ray does not show any acute process. There are no pleural effusions, obvious pneumonia and there is no pneumothorax. - Medical Decision Making 41-year-old female presents after a seizure and with chest discomfort. She has a significant cardiac history. So far the EKG does not show any ST elevation TX. She has a negative first troponin and a negative d-dimer. 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 She will be admitted to the hospital for further evaluation and treatment is been accepted for admission by the hospitalist, Dr clarke. - Differential Diagnosis TX, PE, Costochondritis, Epilepsy, TIA Critical Care Time: No Critical care attestation.: If time is entered above; I have spent that time in minutes in the direct care of this critically ill patient, excluding procedure time. ED Disposition Clinical Impression: Chest tightness or pressure, Seizure Uncontrolled diabetes mellitus Qualifiers: Diabetes mellitus type: due to underlying condition Diabetes mellitus complication status: with hyperglycemia Diabetes mellitus buttermaker continuous churn insulin use : unspecified buttermaker continuous churn insulin use status Qualified Code(s): E08.65 - Diabetes mellitus due to underlying condition with hyperglycemia Disposition: 09 OP ADMIT IP TO THIS HOSP Is pt being admited?: Yes Condition: Stable Instructions: Diabetes Mellitus Type 2 in Adults (ED) Referrals: JOSE SUMNER [Other] - 3-5 Days Time of Disposition: 09:22
[2017-05-19] MEDS ORDERED: PERCOCET 5/325 PO ONE ×2 (08:31→23:32)
--- NOTE | 2017-05-19 08:33 | XRay Report ---
AP CHEST: HISTORY: chest pain AP view of the chest demonstrates a normal mediastinal and cardiac contour with clear lungs and normal bony and soft tissue structures. IMPRESSION: Unremarkable AP chest. No change since 03/23/17.
[2017-05-19] MEDS ORDERED: BABY ASPIRIN PO ONE (11:15)
[2017-05-19] MEDS: HEPARIN SUB-Q SCH ×2 (17:32→21:53)
[2017-05-19] MEDS ORDERED: TYLENOL PO PRN (19:31)
[2017-05-19] MEDS ORDERED: D50W (25GM) Syringe IV PRN (19:31)
[2017-05-19] MEDS ORDERED: MILK OF MAGNESIA PO PRN (19:31)
[2017-05-19] MEDS ORDERED: ZOFRAN IV PRN (19:31)
[2017-05-19] MEDS ORDERED: DULCOLAX PR PRN (19:31)
--- NOTE | 2017-05-19 19:40 | History and Physical Report ---
History of Present Illness Date of admission: 05/19/17 19:01 Chief complaint: I had a seizure History of present illness: 41-year-old past medical history of uncontrolled seizure disorder. States that her neurologist on the outpatient side had just adjusted her medications as she has been having breakthrough seizures despite being compliant with her medications. She states that she was in a restaurant position that she's having chest pain and shortness of breath, and shortly after she had a seizure was witnessed by family member, it was a tonic-clonic seizure. She was postictal after the seizure but her mentation is now back to baseline. Denies headache denies shortness of breath at present, denies fever, denies dysuria. Denies nausea vomiting or diarrhea. Past History Past Medical History: CAD (history of CA 2), cancer (breasts), diabetes (not on insulin, diet and lifestyle control), heart failure (diastolic), seizures ( uncontrolled), stroke (in the past) Past Surgical History: cholecystectomy, hysterectomy, Other (lumpectomy of left breast) Social history: no significant social history Family history: hypertension Medications and Allergies Allergies Allergy/AdvReac Type Severity Reaction Status Date / Time albuterol Allergy Anaphylaxis Verified 03/04/17 01:21 aripiprazole [From Abilify] Allergy Anaphylaxis Verified 03/04/17 01:09 bee venom protein (honey bee) Allergy Anaphylaxis Verified 03/04/17 01:09 black pepper Allergy Anaphylaxis Verified 03/04/17 01:21 cocoa butter Allergy Anaphylaxis Verified 03/04/17 01:21 coconut Allergy Anaphylaxis Verified 03/04/17 01:21 iodine Allergy Anaphylaxis Verified 03/04/17 01:09 ketorolac [From Toradol] Allergy Anaphylaxis Verified 03/04/17 01:09 latex Allergy Anaphylaxis Verified 03/04/17 01:09 lidocaine Allergy Anaphylaxis Verified 03/04/17 05:34 morphine Allergy Anaphylaxis Verified 03/04/17 01:09 nalbuphine [From Nubain] Allergy Anaphylaxis Verified 03/04/17 01:21 onion Allergy Anaphylaxis Verified 03/04/17 01:21 peanut Allergy Anaphylaxis Verified 03/04/17 01:21 Penicillins Allergy Anaphylaxis Verified 03/04/17 01:09 pregabalin [From Lyrica] Allergy Anaphylaxis Verified 03/04/17 01:21 procaine [From Novocain] Allergy Anaphylaxis Verified 03/04/17 01:09 sulfamethoxazole Allergy Anaphylaxis Verified 03/04/17 01:21 [From Bactrim] tramadol Allergy Anaphylaxis Verified 03/04/17 01:09 trimethoprim [From Bactrim] Allergy Anaphylaxis Verified 03/04/17 01:21 watermelon Allergy Anaphylaxis Verified 03/04/17 01:21 pepperoni Allergy Anaphylaxis Uncoded 03/04/17 01:21 salami Allergy Anaphylaxis Uncoded 03/04/17 01:21 Home Medications Medication Instructions Recorded Confirmed Last Taken Type Gabapentin [Neurontin] 1,200 mg PO BID 03/04/17 03/24/17 Unknown History HYDROcodone/ACETAMINOPHEN 1 each PO BID PRN 03/04/17 03/24/17 Unknown History [Hydrocodon-Acetaminophn 10-325] Lisinopril [Prinivil] 10 mg PO QDAY 03/04/17 03/24/17 Unknown History Magnesium Oxide [Mag-Oxide 200 mg PO DAILY 03/04/17 03/24/17 Unknown History Magnesium] Montelukast [Singulair] 10 mg PO DAILY 03/04/17 03/24/17 03/02/17 History Oxycodone HCl [Roxicodone] 30 mg PO DAILY 03/04/17 03/24/17 Unknown History Oxycodone HCl/Acetaminophen 1 each PO QID 03/04/17 03/24/17 Unknown History [Percocet 10/325 mg] Propranolol [Inderal] 20 mg PO BID 03/04/17 03/24/17 Unknown History Topiramate [Topamax] 400 mg PO BID 03/04/17 03/24/17 03/03/17 History fentaNYL AMP [Sublimaze Nicu] 75 mcg IM QMONTH 03/24/17 03/24/17 Unknown History Active Meds: Active Medications Heparin Sodium (Porcine) (Heparin) 5,000 unit SUB-Q Q8HR CONI Last Admin: 05/19/17 17:32 Dose: 5,000 unit Review of Systems All systems: negative (14 point review of systems is otherwise negative except as stated in HPI) Exam - Constitutional Vitals: Temp Pulse Resp BP Pulse Ox 98.1 F 82 24 115/82 95 05/19/17 02:33 05/19/17 17:45 05/19/17 17:45 05/19/17 17:45 05/19/17 17:45 General appearance: Present: no acute distress, well-nourished - EENT Eyes: Present: PERRL ENT: hearing intact, clear oral mucosa - Neck Neck: Present: supple, normal ROM - Respiratory Respiratory effort: normal Respiratory: bilateral: CTA - Cardiovascular Heart Sounds: Present: S1 & S2. Absent: rub, click - Extremities Extremities: pulses symmetrical, No edema Peripheral Pulses: within normal limits - Abdominal General gastrointestinal: Present: soft, non-tender, non-distended, normal bowel sounds Female genitourinary: Present: normal - Integumentary Integumentary: Present: clear, warm, dry - Musculoskeletal Musculoskeletal: gait normal, strength equal bilaterally - Psychiatric Psychiatric: appropriate mood/affect, intact judgment & insight - Neurologic Neurologic: CNII-XII intact, moves all extremities Results - Labs CBC & Chem 7: 05/19/17 03:04 05/19/17 03:04 Labs: Laboratory Last Values WBC 4.6 K/mm3 (4.5-11.0) 05/19/17 03:04 RBC 5.29 M/mm3 (3.65-5.03) H 05/19/17 03:04 Hgb 14.2 gm/dl (10.1-14.3) 05/19/17 03:04 Hct 43.7 % (30.3-42.9) H 05/19/17 03:04 MCV 83 fl (79-97) 05/19/17 03:04 MCH 27 pg (28-32) L 05/19/17 03:04 MCHC 33 % (30-34) 05/19/17 03:04 RDW 13.9 % (13.2-15.2) 05/19/17 03:04 Plt Count 258 K/mm3 (140-440) 05/19/17 03:04 D-Dimer < 135 ng/mlDDU (0-234) 05/19/17 07:14 Sodium 137 mmol/L (137-145) 05/19/17 03:04 Potassium 4.0 mmol/L (3.6-5.0) 05/19/17 03:04 Chloride 97.3 mmol/L (98-107) L 05/19/17 03:04 Carbon Dioxide 18 mmol/L (22-30) L 05/19/17 03:04 Anion Gap 26 mmol/L 05/19/17 03:04 BUN 14 mg/dL (7-17) 05/19/17 03:04 Creatinine 0.7 mg/dL (0.7-1.2) 05/19/17 03:04 Estimated GFR > 60 ml/min 05/19/17 03:04 BUN/Creatinine Ratio 20 % 05/19/17 03:04 Glucose 389 mg/dL (65-100) H 05/19/17 03:04 POC Glucose 336 (70-105) H 05/19/17 08:19 Calcium 8.7 mg/dL (8.4-10.2) 05/19/17 03:04 Troponin T < 0.010 ng/mL (0.00-0.029) 05/19/17 07:14 HCG, Qual Negative (Negative) 05/19/17 03:04 Assessment and Plan Assessment and plan: 41-year-old man who presents to the hospital with breakthrough seizures Status epilepticus Obtain CT of her head, continue her home seizure meds, neurology consult to manage antiepileptic drugs Type 2 diabetes Currently hyperglycemic, glucose currently high, check A1c in the morning. Sliding scale insulin for now Metastatic breast cancer R Outpatient management for her oncologist Chest pain Obtain stress test in the morning, troponin negative, chest x-ray negative Chronic Diastolic CHF On exacerbation, currently euvolemic, follow-up echo DVT prophylaxis SCDs until brain imaging is done Plan of care discussed with patient/family: Yes
[2017-05-19] MEDS: NORCO 10/325 PO PRN (20:15)
[2017-05-19] MEDS: INDERAL PO SCH (21:52)
[2017-05-19] MEDS: TOPAMAX PO SCH (21:53)
[2017-05-19] MEDS: NEURONTIN PO SCH (21:53)
[2017-05-19] MEDS ORDERED: GABAPENTIN 1200 MG PO SCH (22:00)
[2017-05-19] MEDS: NOVOLOG SUB-Q SCH (22:05)
[2017-05-20] MEDS: HEPARIN SUB-Q SCH ×3 (06:31→21:50)
[2017-05-20 08:12] LABS: Basophils % (Auto) 0.6 % (0.0-1.8); Eosinophils % (Auto) 0.9 % (0.0-4.3); Hematocrit 42.1 % (30.3-42.9); Hemoglobin 13.5 gm/dl (10.1-14.3); Lymphocytes # (Auto) 1.6 K/mm3 (1.2-5.4); Lymphocytes % (Auto) 47.7 % (13.4-35.0); Mean Corpuscular HGB Conc 32 % (30-34); Mean Corpuscular Hemoglobin 27 pg (28-32); Mean Corpuscular Volume 83 fl (79-97); Monocytes # (Auto) 0.4 K/mm3 (0.0-0.8); Monocytes % (Auto) 10.9 % (0.0-7.3); Platelet Count 227 K/mm3 (140-440); Red Blood Count 5.05 M/mm3 (3.65-5.03); Red Cell Distribution Width 13.8 % (13.2-15.2)
[2017-05-20 08:16] LABS: BUN/Creatinine Ratio 21; Blood Urea Nitrogen 15 mg/dL (7-17); Calcium 8.8 mg/dL (8.4-10.2); Hemolysis Index 32
[2017-05-20] MEDS ORDERED: LEXISCAN IV ONE (09:28)
[2017-05-20] MEDS ORDERED: MAGNESIUM OXIDE 200 MG PO SCH (10:00)
[2017-05-20] MEDS: NOVOLOG SUB-Q SCH ×4 (10:33→21:51)
[2017-05-20] MEDS: ROXICODONE PO PRN (10:50)
[2017-05-20] MEDS ORDERED: Fluarix Quad 2017-2018(36 MOS+ IM ONE (12:00)
--- NOTE | 2017-05-20 14:18 | Progress Note ---
Assessment and Plan Assessment and plan: 41-year-old man who presents to the hospital with breakthrough seizures Status epilepticus Obtain CT of her head, continue her home seizure meds, neurology consult to manage antiepileptic drugs Type 2 diabetes Currently hyperglycemic, glucose currently high, check A1c in the morning. Sliding scale insulin for now Metastatic breast cancer R Outpatient management for her oncologist Chest pain, with hx of [place] Case discussed with cardiology, given history of MO and somewhat positive stress test, she'll get angiogram in the morning. Chronic Diastolic CHF On exacerbation, currently euvolemic, follow-up echo DVT prophylaxis SCDs until brain imaging is done History Interval history: No further seizures Review of systems Constitutional: No fevers, no malaise, no joint pains CVS: No chest pain, no orthopnea, no dyspnea on exertion, no pedal edema GI: No abdominal pain, no diarrhea, no vomiting, no constipation Respiratory: No shortness of breath, no wheezing, no coughing Hospitalist Physical - Physical exam Narrative exam: General.: Appears well, no distress, nontoxic HEENT: Moist mucous membranes, extraocular muscles intact, no lymphadenopathy Neck: supple Cardiac: S1-S2 heard Lungs: clear to auscultation bilaterally Abdomen: soft , nontender, nondistended, bowel sounds positive Extremities: no edema clubbing or cyanosis Skin: no rash or lesions Neurologic: no gross focal deficits Psych: appropriate behavior, appropriate mood, corporative, judgment intact - Constitutional Vitals: Temp Pulse Resp BP Pulse Ox 99.1 F 82 18 101/59 97 05/20/17 08:03 05/20/17 08:03 05/20/17 08:03 05/20/17 08:03 05/20/17 08:03 General appearance: Present: no acute distress, well-nourished Results - Labs CBC & Chem 7: 05/20/17 06:59 05/20/17 06:59 Labs: Laboratory Last Values WBC 3.4 K/mm3 (4.5-11.0) L 05/20/17 06:59 RBC 5.05 M/mm3 (3.65-5.03) H 05/20/17 06:59 Hgb 13.5 gm/dl (10.1-14.3) 05/20/17 06:59 Hct 42.1 % (30.3-42.9) 05/20/17 06:59 MCV 83 fl (79-97) 05/20/17 06:59 MCH 27 pg (28-32) L 05/20/17 06:59 MCHC 32 % (30-34) 05/20/17 06:59 RDW 13.8 % (13.2-15.2) 05/20/17 06:59 Plt Count 227 K/mm3 (140-440) 05/20/17 06:59 Lymph % (Auto) 47.7 % (13.4-35.0) H 05/20/17 06:59 [place] % (Auto) 10.9 % (0.0-7.3) H 05/20/17 06:59 Eos % (Auto) 0.9 % (0.0-4.3) 05/20/17 06:59 Baso % (Auto) 0.6 % (0.0-1.8) 05/20/17 06:59 Lymph # 1.6 K/mm3 (1.2-5.4) 05/20/17 06:59 [place] # 0.4 K/mm3 (0.0-0.8) 05/20/17 06:59 Eos # 0.0 K/mm3 (0.0-0.4) 05/20/17 06:59 Baso # 0.0 K/mm3 (0.0-0.1) 05/20/17 06:59 Seg Neutrophils % 39.9 % (40.0-70.0) L 05/20/17 06:59 Seg Neutrophils # 1.3 K/mm3 (1.8-7.7) L 05/20/17 06:59 D-Dimer < 135 ng/mlDDU (0-234) 05/19/17 07:14 Sodium 137 mmol/L (137-145) 05/20/17 06:59 Potassium 4.7 mmol/L (3.6-5.0) 05/20/17 06:59 Chloride 98.6 mmol/L (98-107) 05/20/17 06:59 Carbon Dioxide 24 mmol/L (22-30) 05/20/17 06:59 Anion Gap 19 mmol/L 05/20/17 06:59 BUN 15 mg/dL (7-17) 05/20/17 06:59 Creatinine 0.7 mg/dL (0.7-1.2) 05/20/17 06:59 Estimated GFR > 60 ml/min 05/20/17 06:59 BUN/Creatinine Ratio 21 % 05/20/17 06:59 Glucose 350 mg/dL (65-100) H 05/20/17 06:59 POC Glucose 336 (70-105) H 05/19/17 08:19 Hemoglobin A1c 13.3 % (4-6) H 05/20/17 06:59 Calcium 8.8 mg/dL (8.4-10.2) 05/20/17 06:59 Magnesium 2.00 mg/dL (1.7-2.3) 05/20/17 06:59 Troponin T < 0.010 ng/mL (0.00-0.029) 05/19/17 20:17 HCG, Qual Negative (Negative) 05/19/17 03:04
[2017-05-20] MEDS: NEURONTIN PO SCH ×2 (14:28→21:50)
[2017-05-20] MEDS: INDERAL PO SCH ×2 (14:29→21:49)
[2017-05-20] MEDS: TOPAMAX PO SCH ×2 (14:29→21:50)
[2017-05-20] MEDS: MAG-OX PO SCH (14:29)
[2017-05-20] MEDS: ZESTRIL PO SCH (14:30)
[2017-05-20] MEDS: SINGULAIR PO SCH (14:30)
[2017-05-20] MEDS: NORCO 10/325 PO PRN (14:38)
--- NOTE | 2017-05-20 14:45 | Consultation ---
History of Present Illness Consult date: 05/20/17 Requesting physician: RICH MANCINI Consult reason: chest pain, shortness of breath History of present illness: The patient is a 41-year-old female with a history of seizure disorder, CA x 2 ( managed medically), breast CA, diabetes, CVA who presented following a seizure. She is followed by neurology as an outpatient and apparently has been having breakthrough seizures despite being compliant with her medications. She also reports some intermittent chest tightness with radiation to her left chest and arm. Troponin negative x 2 but she developed the same chest tightness during her treadmill nuclear stress test this morning and nuclear imaging revealed a small, mild reversible inferolateral defect. Denies previous cardiac cath. Past History Past Medical History: CAD (history of CA 2), cancer (breasts), diabetes (not on insulin, diet and lifestyle control), heart failure (diastolic), seizures ( uncontrolled), stroke (in the past) Past Surgical History: cholecystectomy, hysterectomy, Other (lumpectomy of left breast) Social history: no significant social history Family history: hypertension Medications and Allergies Allergies Allergy/AdvReac Type Severity Reaction Status Date / Time albuterol Allergy Anaphylaxis Verified 03/04/17 01:21 aripiprazole [From Abilify] Allergy Anaphylaxis Verified 03/04/17 01:09 bee venom protein (honey bee) Allergy Anaphylaxis Verified 03/04/17 01:09 black pepper Allergy Anaphylaxis Verified 03/04/17 01:21 cocoa butter Allergy Anaphylaxis Verified 03/04/17 01:21 coconut Allergy Anaphylaxis Verified 03/04/17 01:21 iodine Allergy Anaphylaxis Verified 03/04/17 01:09 ketorolac [From Toradol] Allergy Anaphylaxis Verified 03/04/17 01:09 latex Allergy Anaphylaxis Verified 03/04/17 01:09 lidocaine Allergy Anaphylaxis Verified 03/04/17 05:34 morphine Allergy Anaphylaxis Verified 03/04/17 01:09 nalbuphine [From Nubain] Allergy Anaphylaxis Verified 03/04/17 01:21 onion Allergy Anaphylaxis Verified 03/04/17 01:21 peanut Allergy Anaphylaxis Verified 03/04/17 01:21 Penicillins Allergy Anaphylaxis Verified 03/04/17 01:09 pregabalin [From Lyrica] Allergy Anaphylaxis Verified 03/04/17 01:21 procaine [From Novocain] Allergy Anaphylaxis Verified 03/04/17 01:09 sulfamethoxazole Allergy Anaphylaxis Verified 03/04/17 01:21 [From Bactrim] tramadol Allergy Anaphylaxis Verified 03/04/17 01:09 trimethoprim [From Bactrim] Allergy Anaphylaxis Verified 03/04/17 01:21 watermelon Allergy Anaphylaxis Verified 03/04/17 01:21 pepperoni Allergy Anaphylaxis Uncoded 03/04/17 01:21 salami Allergy Anaphylaxis Uncoded 03/04/17 01:21 Home Medications Medication Instructions Recorded Confirmed Last Taken Type Gabapentin [Neurontin] 1,200 mg PO BID 03/04/17 05/19/17 05/14/17 History HYDROcodone/ACETAMINOPHEN 1 each PO BID PRN 03/04/17 05/19/17 05/07/17 History [Hydrocodon-Acetaminophn 10-325] Lisinopril [Prinivil] 10 mg PO QDAY 03/04/17 05/19/17 05/14/17 History Magnesium Oxide [Mag-Oxide 200 mg PO DAILY 03/04/17 05/19/17 05/14/17 History Magnesium] Montelukast [Singulair] 10 mg PO DAILY 03/04/17 05/19/17 05/14/17 History 10 Oxycodone HCl [Roxicodone] 30 mg PO DAILY 03/04/17 05/19/17 05/14/17 History 30 Oxycodone HCl/Acetaminophen 1 each PO QID 03/04/17 05/19/17 05/14/17 History [Percocet 10/325 mg] 30 Propranolol [Inderal] 20 mg PO BID 03/04/17 05/19/17 05/14/17 10:00 History 20 Topiramate [Topamax] 400 mg PO BID 03/04/17 05/19/17 05/14/17 10:00 History 400 fentaNYL AMP [Sublimaze Nicu] 75 mcg IM QMONTH 03/24/17 05/19/17 04/18/17 History Active Meds: Active Medications Acetaminophen (Tylenol) 650 mg PO Q4H PRN PRN Reason: Pain MILD(1-3)/Fever >100.5/ROTH Acetaminophen/Hydrocodone Bitart ([place] 10/325) 1 each PO BID PRN PRN Reason: Pain Last Admin: 05/20/17 14:38 Dose: 1 each Bisacodyl (Dulcolax) 10 mg UT QDAY PRN PRN Reason: Constipation unrelieved by MOM Dextrose (D50w (25gm) Syringe) 50 ml IV PRN PRN PRN Reason: Hypoglycemia Gabapentin (Neurontin) 1,200 mg PO BID [facility] Last Admin: 05/20/17 14:28 Dose: 1,200 mg Heparin Sodium (Porcine) (Heparin) 5,000 unit SUB-Q Q8HR [facility] Last Admin: 05/20/17 14:39 Dose: Not Given Insulin Aspart (Novolog) 0 units SUB-Q ACHS [facility] PRN Reason: Protocol Last Admin: 05/20/17 14:30 Dose: Not Given Lisinopril (Zestril) 10 mg PO QDAY [facility] Last Admin: 05/20/17 14:30 Dose: 10 mg Magnesium Hydroxide (Milk Of Magnesia) 30 ml PO Q4H PRN PRN Reason: Constipation Magnesium Oxide (Mag-Ox) 200 mg PO QDAY [facility] Last Admin: 05/20/17 14:29 Dose: 200 mg Montelukast Sodium (Singulair) 10 mg PO DAILY [facility] Last Admin: 05/20/17 14:30 Dose: 10 mg Ondansetron HCl (Zofran) 4 mg IV Q8H PRN PRN Reason: N/V unrelieved by Reglan Last Admin: 05/20/17 10:50 Dose: 4 mg Oxycodone HCl (Roxicodone) 30 mg PO DAILY PRN PRN Reason: Pain, Moderate (4-6) Last Admin: 05/20/17 10:50 Dose: 30 mg Propranolol HCl (Inderal) 20 mg PO BID [facility] Last Admin: 05/20/17 14:29 Dose: 20 mg Topiramate (Topamax) 400 mg PO BID [facility] Last Admin: 05/20/17 14:29 Dose: 400 mg Review of Systems Constitutional: no fever, no chills Ears, nose, mouth and throat: no nasal congestion, no nasal discharge, no sinus pressure Cardiovascular: chest pain, no palpitations Respiratory: no cough, no congestion, no wheezing Gastrointestinal: no abdominal pain, no nausea, no vomiting, no diarrhea Genitourinary Female: no pelvic pain, no flank pain Musculoskeletal: no neck stiffness, no neck pain Integumentary: no rash, no pruritis Neurological: seizures, no weakness, no parathesias Endocrine: no cold intolerance, no heat intolerance Hematologic/Lymphatic: no easy bruising, no easy bleeding Allergic/Immunologic: no urticaria, no wheezing Physical Examination Vital Signs Temp Pulse Resp BP Pulse Ox 98.1 F 99 H 14 135/94 97 05/19/17 02:33 05/19/17 02:33 05/19/17 02:33 05/19/17 02:33 05/19/17 02:33 General appearance: no acute distress HEENT: Positive: Normocephaly, Mucus Membranes Moist Neck: Positive: neck supple, trachea midline Cardiac: Positive: Reg Rate and Rhythm, S1/S2 Lungs: Positive: clear to auscultation Neuro: Positive: Grossly Intact Abdomen: Positive: Soft, Active Bowel Sounds. Negative: Tender Skin: Positive: Clear. Negative: Rash Extremities: Present: normal. Absent: edema Results 05/20/17 06:59 05/20/17 06:59 CBC 05/20/17 Range/Units 06:59 WBC 3.4 L (4.5-11.0) K/mm3 RBC 5.05 H (3.65-5.03) M/mm3 Hgb 13.5 (10.1-14.3) gm/dl Hct 42.1 (30.3-42.9) % Plt Count 227 (140-440) K/mm3 Lymph # 1.6 (1.2-5.4) K/mm3 [place] # 0.4 (0.0-0.8) K/mm3 Eos # 0.0 (0.0-0.4) K/mm3 Baso # 0.0 (0.0-0.1) K/mm3 Comprehensive Metabolic Panel 05/20/17 Range/Units 06:59 Sodium 137 (137-145) mmol/L Potassium 4.7 (3.6-5.0) mmol/L Chloride 98.6 (98-107) mmol/L Carbon Dioxide 24 (22-30) mmol/L BUN 15 (7-17) mg/dL Creatinine 0.7 (0.7-1.2) mg/dL Glucose 350 H (65-100) mg/dL Calcium 8.8 (8.4-10.2) mg/dL - Imaging and Cardiology Echo: report reviewed (EF 50-55%) EKG: image reviewed EKG interpretations - Telemetry EKG Rhythm: Sinus Rhythm - EKG Sinus rhythms and dysrhythmias: sinus rhythm Chamber hypertrophy or enlargement: left ventricular hypertro Assessment and Plan Assessment: Chest pain Abnormal stress test Hx. of CA (managed medically, denies previous cardiac cath) Seizure disorder Hx. of breast cancer H/o CVA Plan: Will proceed with cardiac cath in am for definitive diagnosis. Risks, benefits and alternatives were discussed with the patient and she agrees to proceed. The patient has been seen in conjunction with Dr. Isidro who agrees with the assessment and plan of care.
[2017-05-20] MEDS ORDERED: NACL 0.9% 500 ML 500 ML IV SCH (15:00)
--- NOTE | 2017-05-20 15:15 | Cat Scan Report ---
CT HEAD WITHOUT CONTRAST: HISTORY: Seizure. TECHNIQUE: Sequential 2.5mm CT images. COMPARISON: none. FINDINGS: Cerebral Parenchyma: Within normal limits. Cerebellum: Within normal limits. Brainstem: Within normal limits. Ventricles: Normal. Sella: Normal. Extra-axial spaces: Normal. Basal Cisterns: Normal. Intracranial Hemorrhage: None. Midline Shift: None. Calvarium: Normal. Sinuses: Normal. Mastoid Air Cells: Normal. Visualized Orbits: Normal. IMPRESSION: Cranial CT scan within normal limits. No change since 03/23/17.
--- NOTE | 2017-05-20 15:32 | Consultation ---
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 insulinoma rec vimpat as I do not believe that topamax alone effective for seizure control will dose vimpat per rec's Past History Past Medical History: CAD (history of NM 2), cancer (breasts), diabetes (not on insulin, diet and lifestyle control), heart failure (diastolic), seizures ( uncontrolled), stroke (in the past) Past Surgical History: cholecystectomy, hysterectomy, Other (lumpectomy of left breast) Social history: no significant social history Family history: hypertension Medications and Allergies Allergies Allergy/AdvReac Type Severity Reaction Status Date / Time albuterol Allergy Anaphylaxis Verified 03/04/17 01:21 aripiprazole [From Abilify] Allergy Anaphylaxis Verified 03/04/17 01:09 bee venom protein (honey bee) Allergy Anaphylaxis Verified 03/04/17 01:09 black pepper Allergy Anaphylaxis Verified 03/04/17 01:21 cocoa butter Allergy Anaphylaxis Verified 03/04/17 01:21 coconut Allergy Anaphylaxis Verified 03/04/17 01:21 iodine Allergy Anaphylaxis Verified 03/04/17 01:09 ketorolac [From Toradol] Allergy Anaphylaxis Verified 03/04/17 01:09 latex Allergy Anaphylaxis Verified 03/04/17 01:09 lidocaine Allergy Anaphylaxis Verified 03/04/17 05:34 morphine Allergy Anaphylaxis Verified 03/04/17 01:09 nalbuphine [From Nubain] Allergy Anaphylaxis Verified 03/04/17 01:21 onion Allergy Anaphylaxis Verified 03/04/17 01:21 peanut Allergy Anaphylaxis Verified 03/04/17 01:21 Penicillins Allergy Anaphylaxis Verified 03/04/17 01:09 pregabalin [From Lyrica] Allergy Anaphylaxis Verified 03/04/17 01:21 procaine [From Novocain] Allergy Anaphylaxis Verified 03/04/17 01:09 sulfamethoxazole Allergy Anaphylaxis Verified 03/04/17 01:21 [From Bactrim] tramadol Allergy Anaphylaxis Verified 03/04/17 01:09 trimethoprim [From Bactrim] Allergy Anaphylaxis Verified 03/04/17 01:21 watermelon Allergy Anaphylaxis Verified 03/04/17 01:21 pepperoni Allergy Anaphylaxis Uncoded 03/04/17 01:21 salami Allergy Anaphylaxis Uncoded 03/04/17 01:21 Home Medications Medication Instructions Recorded Confirmed Last Taken Type Gabapentin [Neurontin] 1,200 mg PO BID 03/04/17 05/19/17 05/14/17 History HYDROcodone/ACETAMINOPHEN 1 each PO BID PRN 03/04/17 05/19/17 05/07/17 History [Hydrocodon-Acetaminophn 10-325] Lisinopril [Prinivil] 10 mg PO QDAY 03/04/17 05/19/17 05/14/17 History Magnesium Oxide [Mag-Oxide 200 mg PO DAILY 03/04/17 05/19/17 05/14/17 History Magnesium] Montelukast [Singulair] 10 mg PO DAILY 03/04/17 05/19/17 05/14/17 History 10 Oxycodone HCl [Roxicodone] 30 mg PO DAILY 03/04/17 05/19/17 05/14/17 History 30 Oxycodone HCl/Acetaminophen 1 each PO QID 03/04/17 05/19/17 05/14/17 History [Percocet 10/325 mg] 30 Propranolol [Inderal] 20 mg PO BID 03/04/17 05/19/17 05/14/17 10:00 History 20 Topiramate [Topamax] 400 mg PO BID 03/04/17 05/19/17 05/14/17 10:00 History 400 fentaNYL AMP [Sublimaze Nicu] 75 mcg IM QMONTH 03/24/17 05/19/17 04/18/17 History Active Meds: Active Medications Acetaminophen (Tylenol) 650 mg PO Q4H PRN PRN Reason: Pain MILD(1-3)/Fever >100.5/ROTH Acetaminophen/Hydrocodone Bitart ([place] 10/325) 1 each PO BID PRN PRN Reason: Pain Last Admin: 05/20/17 14:38 Dose: 1 each Bisacodyl (Dulcolax) 10 mg GA QDAY PRN PRN Reason: Constipation unrelieved by MOM Dextrose (D50w (25gm) Syringe) 50 ml IV PRN PRN PRN Reason: Hypoglycemia Gabapentin (Neurontin) 1,200 mg PO BID [facility] Last Admin: 05/20/17 14:28 Dose: 1,200 mg Heparin Sodium (Porcine) (Heparin) 5,000 unit SUB-Q Q8HR [facility] Last Admin: 05/20/17 14:39 Dose: Not Given Sodium Chloride (Nacl 0.9% 500 Ml) 500 mls @ 50 mls/hr IV DIRECT [facility] Stop: 05/21/17 00:59 Insulin Aspart (Novolog) 0 units SUB-Q ACHS [facility] PRN Reason: Protocol Last Admin: 05/20/17 14:30 Dose: Not Given Lisinopril (Zestril) 10 mg PO QDAY [facility] Last Admin: 05/20/17 14:30 Dose: 10 mg Magnesium Hydroxide (Milk Of Magnesia) 30 ml PO Q4H PRN PRN Reason: Constipation Magnesium Oxide (Mag-Ox) 200 mg PO QDAY [facility] Last Admin: 05/20/17 14:29 Dose: 200 mg Montelukast Sodium (Singulair) 10 mg PO DAILY [facility] Last Admin: 05/20/17 14:30 Dose: 10 mg Ondansetron HCl (Zofran) 4 mg IV Q8H PRN PRN Reason: N/V unrelieved by [place] Last Admin: 05/20/17 10:50 Dose: 4 mg Oxycodone HCl (Roxicodone) 30 mg PO DAILY PRN PRN Reason: Pain, Moderate (4-6) Last Admin: 05/20/17 10:50 Dose: 30 mg Propranolol HCl (Inderal) 20 mg PO BID [facility] Last Admin: 05/20/17 14:29 Dose: 20 mg Topiramate (Topamax) 400 mg PO BID [facility] Last Admin: 05/20/17 14:29 Dose: 400 mg Physical Examination - Vital Signs Vital Signs: Vital Signs Temp Pulse Resp BP Pulse Ox 98.1 F 99 H 14 135/94 97 05/19/17 02:33 05/19/17 02:33 05/19/17 02:33 05/19/17 02:33 05/19/17 02:33 Results - Laboratory Findings CBC and BMP: 05/20/17 06:59 05/20/17 06:59 Abnormal Lab Findings: Abnormal Labs 05/19/17 05/19/17 05/19/17 03:04 03:04 08:19 WBC RBC 5.29 H Hct 43.7 H MCH 27 L Lymph % (Auto) [place] % (Auto) Seg Neutrophils % Seg Neutrophils # Chloride 97.3 L Carbon Dioxide 18 L Glucose 389 H POC Glucose 336 H Hemoglobin A1c 05/20/17 05/20/17 05/20/17 06:59 06:59 06:59 WBC 3.4 L RBC 5.05 H Hct MCH 27 L Lymph % (Auto) 47.7 H [place] % (Auto) 10.9 H Seg Neutrophils % 39.9 L Seg Neutrophils # 1.3 L Chloride Carbon Dioxide Glucose 350 H POC Glucose Hemoglobin A1c 13.3 H
[2017-05-20] MEDS: VIMPAT PO SCH (21:50)
--- NOTE | 2017-05-21 01:17 | Treadmill Report ---
NUCLEAR STRESS TEST INDICATION FOR PROCEDURE: Chest pain. Informed consent was obtained. ELECTROCARDIOGRAM: The baseline electrocardiogram demonstrates normal sinus rhythm and is within normal limits. PROCEDURE: The patient exercised according to the Reyes protocol for a total of 9 minutes with a peak heart rate of 158 and a maximum blood pressure of 119/89. The patient did describe left-sided chest discomfort during exercise. Exercise however, was limited by fatigue. The patient achieved 89% of the maximum predicted heart rate response and attained a workload of 10.3 mets. Electrocardiographic response to treadmill exercise is nondiagnostic due to the presence of baseline artifact. No definite ischemic repolarization abnormalities were noted, however. There is no significant ectopy. TECHNICAL DATA: The patient exhibited normal exercise tolerance. Rest and stress. DESCRIPTION OF PROCEDURE: Cardiac imaging was performed following the intravenous administration of 10 and 28 mCi of technetium and technetium-99m Myoview per protocol. Gated SPECT imaging demonstrates a left ventricular ejection fraction of 52% with normal wall motion. Myocardial perfusion imaging demonstrates no significant cavity change between stress and rest. There is a small mild reversible inferoseptal and inferolateral perfusion abnormality. Nuclear cardiac imaging demonstrates grossly normal post-stress left ventricular systolic function with evidence suggestive of a mild degree of inferoseptal and inferolateral wall myocardial ischemia. Clinical correlation recommended. JOB# [id number] KOBY/PRUDENCIO
[2017-05-21] MEDS ORDERED: NACL 0.9% 500 ML 500 ML IV SCH (02:00)
[2017-05-21 05:50] LABS: Hematocrit 40.9 % (30.3-42.9); Hemoglobin 13.4 gm/dl (10.1-14.3); Mean Corpuscular HGB Conc 33 % (30-34); Mean Corpuscular Hemoglobin 27 pg (28-32); Mean Corpuscular Volume 83 fl (79-97); Platelet Count 225 K/mm3 (140-440); Red Blood Count 4.91 M/mm3 (3.65-5.03); Red Cell Distribution Width 13.9 % (13.2-15.2)
[2017-05-21 05:58] LABS: INR 0.9 (0.87-1.13)
[2017-05-21 05:59] LABS: Partial Thromboplastin Time 25.8 Sec. (24.2-36.6)
[2017-05-21 06:08] LABS: BUN/Creatinine Ratio 18; Blood Urea Nitrogen 14 mg/dL (7-17); Calcium 8.6 mg/dL (8.4-10.2); Hemolysis Index 10
[2017-05-21] MEDS: HEPARIN SUB-Q SCH (06:22)
[2017-05-21] MEDS: NOVOLOG SUB-Q SCH ×2 (07:30→11:30)
[2017-05-21] MEDS ORDERED: HEPARIN/NS 5000 UNIT/500ML(CATH LAB) 1,000 ML IR ONE (08:27)
[2017-05-21] MEDS ORDERED: CALAN ONE (08:27)
[2017-05-21] MEDS ORDERED: HEPARIN 10,000 UNITS/10 ML ONE (08:27)
[2017-05-21] MEDS ORDERED: XYLOCAINE 2% INFILTRATI ONE (08:28)
[2017-05-21] MEDS ORDERED: NITROGLYCERIN SYRINGE 0 ML ONE (08:28)
[2017-05-21] MEDS ORDERED: VERSED ONE (08:28)
[2017-05-21] MEDS ORDERED: NACL 0.9% 500 ML 500 ML ONE (08:29)
[2017-05-21] MEDS ORDERED: SUBLIMAZE ONE (08:29)
[2017-05-21] MEDS ORDERED: BENADRYL ONE (08:53)
[2017-05-21 09:56] LABS: Basophils % (Manual) 0 % (0.0-1.8); Eosinophils % (Manual) 0 % (0.0-4.3); Total Cells Counted 100
[2017-05-21 09:57] LABS: RBC Morphology Normal
--- NOTE | 2017-05-21 10:02 | Cardiac Catherization Report ---
A 41-year-old female who was admitted to [facility] on 05/19/2017 with history of uncontrolled seizures disorder and she started having chest pain and shortness of breath after she had a witnessed seizure. PAST MEDICAL HISTORY: History of myocardial infarction x 2, history of breast cancer, history of diabetes mellitus, history of heart failure in addition to history of stroke. ALLERGIES: She is allergic to MULTIPLE MEDICATIONS INCLUDING LIDOCAINE, MORPHINE, PEANUT, PENICILLIN, PROCAINE. The patient for evaluation of chest pain, has an IV Lexiscan nuclear imaging performed on 05/20/2017 and this suggested normal post-stress left ventricular systolic function with evidence suggestive of mild degree of inferoseptal and inferolateral wall myocardial ischemia. She exercised for 9 minutes on standard Reyes protocol. Because of abnormal nuclear imaging with chest pain, she is scheduled for cardiac catheterization for definitive diagnosis and treatment. As mentioned above, the patient gives history of having 2 myocardial infarctions in the past. After obtaining informed consent, the patient was brought to the catheterization laboratory. The patient was sedated with IV Benadryl because apparently she is allergic to multiple other medications. Also local anesthesia was not given in the right wrist area. After cleaning her body and applying sterile drapes, right radial artery puncture was made using 21-gauge arterial puncture needle. Subsequently, 5-[place] Slender sheath was introduced. A 5-[place] multipurpose catheter was used to obtain the angiograms of the right coronary artery in multiple views and left ventriculogram done in BAEZ projection using multipurpose catheter. A 5-[place] TIG catheter was used to obtain the angiograms of the left coronary artery in multiple views. At the end of the procedure, catheter and sheath were removed. The patient tolerated the procedure well. No untoward complications were noted. Following findings were noted. HEMODYNAMICS: 1. Opening aortic pressure 136/84, left ventricular pressure 106/70, no gradient across the aortic valve. Estimated ejection fraction 50-55%. 2. Left ventriculogram done in BAEZ and [place] projection using hand injection showed mild hypokinesis of the basal part of the inferior wall. Overall, ejection fraction is within normal limits 50-55%. Mitral regurgitation could not be evaluated because of limited amount of dye injected. 3. Right coronary artery dominant vessel arises somewhat anteriorly and downward in the right coronary cusp. This is dominant vessel and angiographically smooth and normal. 4. Left coronary artery arises normally from left coronary cusp. Left main is very short, immediately dividing into LAD, which curves around the apex and circumflex branches. Left main, circumflex artery and its branches and LAD and this diagonal branch are angiographically smooth and normal. FINAL IMPRESSION: 1. Mild inferior wall hypokinesis with a preserved left ventricular function. Ejection fraction 50-55%. 2. Normal coronary anatomy. At this time, considering the patient has angiographically smooth normal coronary anatomy, we will continue risk factor modification and medical therapy. Etiology of her chest pain is not clear. Findings were explained to the patient. JOB# [id number] ROX/PRUDENCIO VALDEZ
--- NOTE | 2017-05-21 11:44 | Progress Note ---
Assessment and Plan Assessment: Chest pain-->normal coronaries on [facility] today Abnormal stress test Hx. of [place] (managed medically, denies previous cardiac cath) Seizure disorder Hx. of breast cancer H/o CVA Plan: Left heart cath today revealed normal coronaries. Recommend continuing medical management and aggressive risk factor modification. Stable cardiac status. Will see PRN. The patient has been seen in conjunction with Dr. Isidro who agrees with the assessment and plan of care. Subjective Date of service: 05/21/17 Principal diagnosis: chest pain Interval history: Patient resting comfortably in bed. S/p left heart cath this morning which revealed normal coronaries. Sinus rhythm on the monitor. Objective Last Vital Signs Temp 99.2 F 05/21/17 08:00 Pulse 85 05/21/17 07:45 Resp 18 05/21/17 08:00 BP 104/63 05/21/17 08:00 Pulse Ox 96 05/21/17 08:00 - Physical Examination General: No Apparent Distress HEENT: Positive: Normocephaly, Mucus Membranes Moist Neck: Positive: neck supple, trachea midline Cardiac: Positive: Reg Rate and Rhythm, S1/S2 Lungs: Positive: clear to auscultation Neuro: Positive: Grossly Intact Abdomen: Positive: Soft, Active Bowel Sounds. Negative: Tender Skin: Positive: Clear. Negative: Rash Incision: Cardiac Cath Site (right radial-no hematoma) Extremities: Present: normal. Absent: edema - Labs and Meds Coagulation 05/21/17 Range/Units 05:32 PT 12.6 (12.2-14.9) Sec. INR 0.90 (0.87-1.13) APTT 25.8 (24.2-36.6) Sec. CBC 05/21/17 Range/Units 05:32 WBC 3.7 L (4.5-11.0) K/mm3 RBC 4.91 (3.65-5.03) M/mm3 Hgb 13.4 (10.1-14.3) gm/dl Hct 40.9 (30.3-42.9) % Plt Count 225 (140-440) K/mm3 Comprehensive Metabolic Panel 05/21/17 Range/Units 05:32 Sodium 132 L (137-145) mmol/L Potassium 4.1 (3.6-5.0) mmol/L Chloride 96.2 L (98-107) mmol/L Carbon Dioxide 23 (22-30) mmol/L BUN 14 (7-17) mg/dL Creatinine 0.8 (0.7-1.2) mg/dL Glucose 339 H (65-100) mg/dL Calcium 8.6 (8.4-10.2) mg/dL - Imaging and Cardiology EKG: image reviewed Echo: report reviewed (EF 50-55%) - Telemetry EKG Rhythm: Sinus Rhythm - EKG Sinus rhythms and dysrhythmias: sinus rhythm Chamber hypertrophy or enlargement: left ventricular hypertro
[2017-05-21] MEDS: SINGULAIR PO SCH (12:18)
[2017-05-21] MEDS: NEURONTIN PO SCH (12:18)
[2017-05-21] MEDS: MAG-OX PO SCH (12:19)
[2017-05-21] MEDS: ZESTRIL PO SCH (12:24)
[2017-05-21] MEDS: VIMPAT PO SCH (12:24)
[2017-05-21] MEDS: ROXICODONE PO PRN (12:25)
[2017-05-21] MEDS: TOPAMAX PO SCH (12:27)
[2017-05-21] MEDS: INDERAL PO SCH (12:27)
[2017-05-21 12:28] VITALS: BP 121/67
--- NOTE | 2017-05-21 14:37 | Discharge Summary ---
<PAULINA COMBS - Last Filed: 05/21/17 15:24> Providers - Providers Date of Admission: 05/19/17 19:01 Date of discharge: 05/21/17 Attending physician: RICH MANCINI MD 05/19/17 19:31 Consult to Physician [CONS] Routine Consulting Provider: JULIANNE YANG Reason For Exam: seizure Place consult to:: neuro Notified:: yes Was contact made?: Yes 05/20/17 14:18 Consult to Physician [CONS] Routine Consulting Provider: KATTY SCOTT Reason For Exam: chest pain Place consult to:: [facility] Notified:: olga Time called:: 14:47 Hospitalization Reason for admission: seizure and chest pain. 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 Patient also complains of chest tightness. Patient presented with atypical chest pain, ACS was ruled out, stress test normal MPI, negative cardiac enzymes, ECGs shows normal sinus rythm. CXR WNL. Patient chest pain probably from musculoskeletal. She was restarted on the rest of her meds, which he had been poorly compliant with. She was treated with anticonvulsants, IV fluid hydration. Patient is noncompliance with anticonvulsants. She was counseled about non compliance and she agreed that she would start taking her meds faithfully. No episodes of seizure since admission.She was seen by neurology and added another anti- seizure her home medications.Patient is clinically improved Patient advised to follow-up with his primary care provider. Discharge Diagnosed. Status epilepticus secondary to medication noncompliance. Type 2 diabetes Metastatic breast cancer R Chest pain, with hx of UT Chronic Diastolic CHF Disposition: - TO HOME OR SELFCARE Time spent for discharge: 35 minutes Core Measure Documentation - Palliative Care Palliative Care/ Comfort Measures: Not Applicable - Core Measures Any of the following diagnoses?: none Exam - Constitutional Vitals: Temp Pulse Resp BP Pulse Ox 99.2 F 70 18 121/67 93 05/21/17 08:00 05/21/17 12:27 05/21/17 12:25 05/21/17 12:27 05/21/17 10:32 General appearance: Present: no acute distress - EENT Eyes: Present: PERRL ENT: hearing intact - Neck Neck: Present: supple - Respiratory Respiratory effort: normal Respiratory: bilateral: CTA - Cardiovascular Rhythm: regular Heart Sounds: Present: S1 & S2 - Abdominal General gastrointestinal: Present: soft, non-tender Female genitourinary: Present: deferred - Rectal Rectal Exam: deferred - Integumentary Integumentary: Present: clear, warm, dry - Musculoskeletal Musculoskeletal: strength equal bilaterally - Psychiatric Psychiatric: appropriate mood/affect - Neurologic Neurologic: moves all extremities - Allied Health Allied health notes reviewed: nursing Plan Diet: low fat, low cholesterol, low salt Follow up with: JOSE SUMNER [Other] - 3-5 Days Forms: [facility] PCI D/C Instructions Prescriptions: Gabapentin [Neurontin] 1,200 mg PO BID #60 capsule Lacosamide [Vimpat] 50 mg PO Q12HR #60 tablet Lisinopril [Prinivil] 10 mg PO QDAY #30 tablet Magnesium Oxide [Mag-Oxide Magnesium] 200 mg PO DAILY #30 tablet Montelukast [Singulair] 10 mg PO DAILY #30 tablet Propranolol [Inderal] 20 mg PO BID #60 tablet Topiramate [Topamax] 400 mg PO BID #60 tablet <RICH MANCINI - Last Filed: 05/25/17 14:15> Providers - Providers Date of Admission: 05/19/17 19:01 Attending physician: RICH MANCINI MD 05/19/17 19:31 Consult to Physician [CONS] Routine Consulting Provider: JULIANNE YANG Reason For Exam: seizure Place consult to:: neuro Notified:: yes Was contact made?: Yes 05/20/17 14:18 Consult to Physician [CONS] Routine Consulting Provider: KATTY SCOTT Reason For Exam: chest pain Place consult to:: [facility] Notified:: olga Time called:: 14:47 Exam - Constitutional Vitals: Temp Pulse Resp BP Pulse Ox 99.2 F 70 18 121/67 93 05/21/17 08:00 05/21/17 12:27 05/21/17 12:25 05/21/17 12:27 05/21/17 10:32
== END 2017-05-21 16:59 | disposition home or self-care (01) | DRG 287 ==
LOC: ED 01:18 → 4A 12:52 → UNDOADMIN 12:52 → 4A 16:48 → UNDOADMIN 16:48 → 4A 19:01
PROVIDERS: ADMIT Internal Medicine; ATTEND Internal Medicine
PROC: 3E0234Z Introduction of Serum, Toxoid and Vaccine into Muscle, Percutaneous Approach (ICD-10-PCS; 2017-05-20)
PROC: 4A023N7 Measurement of Cardiac Sampling and Pressure, Left Heart, Percutaneous Approach (ICD-10-PCS; principal; 2017-05-21)
PROC: B2151ZZ Fluoroscopy of Left Heart using Low Osmolar Contrast (ICD-10-PCS; 2017-05-21)
PROC: B2111ZZ Fluoroscopy of Multiple Coronary Arteries using Low Osmolar Contrast (ICD-10-PCS; 2017-05-21)
DX: R07.89 Other chest pain (principal); I50.32 Chronic diastolic (congestive) heart failure; G40.901 Epilepsy, unspecified, not intractable, with status epilepticus; E11.65 Type 2 diabetes mellitus with hyperglycemia; Z88.3 Allergy status to other anti-infective agents; Z91.030 Bee allergy status; Z88.8 Allergy status to other drugs, medicaments and biological substances; Z91.048 Other nonmedicinal substance allergy status; Z23 Encounter for immunization; J45.909 Unspecified asthma, uncomplicated; Z86.73 Personal history of transient ischemic attack (TIA), and cerebral infarction without residual deficits; I25.10 Atherosclerotic heart disease of native coronary artery without angina pectoris; I25.2 Old myocardial infarction; F17.200 Nicotine dependence, unspecified, uncomplicated; Z79.899 Other long term (current) drug therapy; Z90.49 Acquired absence of other specified parts of digestive tract; Z90.710 Acquired absence of both cervix and uterus; Z82.49 Family history of ischemic heart disease and other diseases of the circulatory system; Z91.19 Patient's noncompliance with other medical treatment and regimen; Z85.3 Personal history of malignant neoplasm of breast
CPT/HCPCS: 36415; 70450; 71045; 78452; 80048; 81025; 82962; 83036; 83735; 84484; 84703; 85007; 85025; 85027; 85379; 85610; 85730; 90686; 93005; 93010; 93017; 93458; 96374; A9502; C1887; C1894; J1200; J1644; J1815; J2250; J2405; J2785; J2930; J3010; J7040; Q9967

== ENCOUNTER 2018-09-29 11:00 | Emergency (ER) | payer MEDICARE ==
[2018-09-29 11:17] VITALS: BP 133/89
--- NOTE | 2018-09-29 11:21 | Emergency Department Report ---
Chief Complaint: Nausea/Vomiting/Diarrhea Stated Complaint: DIARRHEA/DIZZY/RT ARM TINGLE Time Seen by Provider: 09/29/18 11:17 - HPI History of Present Illness: This is a 43 y.o. F that presents to the ER with nausea, vomiting, diarrhea x 3 day. PMH: HTN, CA, CHF, CVA, migraines, & asthma RUQ pain Denies chest pain, tarry stools, or shortness of breath. - Exam Vital Signs: Vital Signs 09/29/18 11:16 Temperature 98.2 F Pulse Rate 96 H Respiratory 18 Rate Blood Pressure 133/89 O2 Sat by Pulse 98 Oximetry MSE screening note: Focused history and physical exam performed. Due to findings the following was ordered: Labs ED Disposition for MSE Condition: Stable
[2018-09-29 11:58] LABS: Basophils % (Auto) 0.8 % (0.0-1.8); Eosinophils % (Auto) 0.9 % (0.0-4.3); Hematocrit 41.2 % (30.3-42.9); Hemoglobin 13.4 gm/dl (10.1-14.3); Lymphocytes # (Auto) 2.2 K/mm3 (1.2-5.4); Lymphocytes % (Auto) 46.1 % (13.4-35.0); Mean Corpuscular HGB Conc 33 % (30-34); Mean Corpuscular Volume 83 fl (79-97); Monocytes # (Auto) 0.3 K/mm3 (0.0-0.8); Monocytes % (Auto) 6.2 % (0.0-7.3); Platelet Count 304 K/mm3 (140-440); Red Blood Count 4.97 M/mm3 (3.65-5.03); Red Cell Distribution Width 13.3 % (13.2-15.2)
[2018-09-29 12:07] LABS: Bilirubin,Urine NEG (Negative); Blood,Urine NEG (Negative); Color,Urine Yellow (Yellow); Mucus,Urine 3+ /HPF; Protein,Urine <15 mg/dL mg/dL (Negative); Urobilinogen,Urine < 2.0 mg/dL (<2.0)
[2018-09-29 12:24] LABS: Alanine Aminotransferase 12 units/L (7-56); Albumin 4.2 g/dL (3.9-5); BUN/Creatinine Ratio 16; Blood Urea Nitrogen 11 mg/dL (7-17); Calcium 8.9 mg/dL (8.4-10.2); Hemolysis Index 4
[2018-09-29] MEDS ORDERED: NACL 0.9% 1000 ML 1,000 ML IV ONE (13:03)
[2018-09-29] MEDS ORDERED: ZOFRAN IV ONE (13:03)
[2018-09-29] MEDS ORDERED: DILAUDID IV ONE ×2 (13:06→14:18)
--- NOTE | 2018-09-29 13:08 | Emergency Department Report ---
ED General Adult HPI - General Chief complaint: Nausea/Vomiting/Diarrhea Stated complaint: DIARRHEA/DIZZY/RT ARM TINGLE Time Seen by Provider: 09/29/18 11:17 Source: patient Mode of arrival: Ambulatory Limitations: No Limitations - History of Present Illness Initial comments: Patient presents to the emergency department with a chief complaint of nausea, vomiting, diarrhea for the last 2-3 days. Patient also complains of body aches as well. The patient denies any known sick contacts. Patient denies chest pain, abdominal pain, shortness of breath. -: Sudden Radiation: non-radiation Severity scale (0 -10): 0 Consistency: constant Improves with: none Worsens with: none Associated Symptoms: denies other symptoms Treatments Prior to Arrival: none - Related Data Home Medications Medication Instructions Recorded Confirmed Last Taken Gabapentin [Neurontin] 1,200 mg PO BID 03/04/17 05/19/17 05/14/17 HYDROcodone/ACETAMINOPHEN 1 each PO BID PRN 03/04/17 05/19/17 05/07/17 [Hydrocodone-Acetamin 10-325 mg] fentaNYL AMP [Sublimaze Nicu] 75 mcg IM QMONTH 03/24/17 05/19/17 04/18/17 Previous Rx's Medication Instructions Recorded Last Taken Type Gabapentin [Neurontin] 1,200 mg PO BID #60 capsule 05/21/17 Unknown Rx Lacosamide [Vimpat] 50 mg PO Q12HR #60 tablet 05/21/17 Unknown Rx Lisinopril [Prinivil] 10 mg PO QDAY #30 tablet 05/21/17 Unknown Rx Magnesium Oxide [Mag-Oxide 200 mg PO DAILY #30 tablet 05/21/17 Unknown Rx Magnesium] Montelukast [Singulair] 10 mg PO DAILY #30 tablet 05/21/17 Unknown Rx Propranolol [Inderal] 20 mg PO BID #60 tablet 05/21/17 Unknown Rx Topiramate [Topamax] 400 mg PO BID #60 tablet 05/21/17 Unknown Rx oxyCODONE [roxiCODONE] 30 mg PO DAILY PRN tablet 05/21/17 Unknown Rx HYDROcodone/APAP 5-325 [[place] 1 each PO Q6HR PRN #12 tablet 09/29/18 Unknown Rx 5/325] Nitrofurantoin Monohyd/M-Cryst 100 mg PO BID #14 capsule 09/29/18 Unknown Rx [Macrobid 100 mg Capsule] Ondansetron [Zofran Odt] 4 mg PO Q4HR PRN #20 tab.rapdis 09/29/18 Unknown Rx Promethazine [Phenergan TAB] 25 mg PO Q6HR PRN #20 tab 09/29/18 Unknown Rx Allergies Allergy/AdvReac Type Severity Reaction Status Date / Time albuterol Allergy Anaphylaxis Verified 09/29/18 11:04 aripiprazole [From Abilify] Allergy Anaphylaxis Verified 09/29/18 11:04 bee venom protein (honey bee) Allergy Anaphylaxis Verified 09/29/18 11:04 black pepper Allergy Anaphylaxis Verified 09/29/18 11:04 cocoa butter Allergy Anaphylaxis Verified 09/29/18 11:04 coconut Allergy Anaphylaxis Verified 09/29/18 11:04 iodine Allergy Anaphylaxis Verified 09/29/18 11:04 ketorolac [From Toradol] Allergy Anaphylaxis Verified 09/29/18 11:04 latex Allergy Anaphylaxis Verified 09/29/18 11:04 lidocaine Allergy Anaphylaxis Verified 09/29/18 11:04 morphine Allergy Anaphylaxis Verified 09/29/18 11:04 nalbuphine [From Nubain] Allergy Anaphylaxis Verified 09/29/18 11:04 onion Allergy Anaphylaxis Verified 09/29/18 11:04 peanut Allergy Anaphylaxis Verified 09/29/18 11:04 Penicillins Allergy Anaphylaxis Verified 09/29/18 11:04 pregabalin [From Lyrica] Allergy Anaphylaxis Verified 09/29/18 11:04 procaine [From Novocain] Allergy Anaphylaxis Verified 09/29/18 11:04 sulfamethoxazole Allergy Anaphylaxis Verified 09/29/18 11:04 [From Bactrim] tramadol Allergy Anaphylaxis Verified 09/29/18 11:04 trimethoprim [From Bactrim] Allergy Anaphylaxis Verified 09/29/18 11:04 watermelon Allergy Anaphylaxis Verified 09/29/18 11:04 pepperoni Allergy Anaphylaxis Uncoded 09/29/18 11:04 salami Allergy Anaphylaxis Uncoded 09/29/18 11:04 ED Review of Systems ROS: Stated complaint: DIARRHEA/DIZZY/RT ARM TINGLE Other details as noted in HPI Comment: All other systems reviewed and negative Constitutional: denies: chills, fever Eyes: denies: eye pain, eye discharge, vision change ENT: denies: ear pain, throat pain Respiratory: denies: cough, shortness of breath, wheezing Cardiovascular: denies: chest pain, palpitations Endocrine: no symptoms reported Gastrointestinal: nausea, vomiting, diarrhea. denies: abdominal pain Genitourinary: denies: urgency, dysuria, discharge Musculoskeletal: other (body aches). 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 - Surgical History Past Surgical History?: Yes Hx Breast Surgery: Yes (left breast masectomy and reconstruction) Additional Surgical History: lymph nodes removed from left side - Social History Smoking Status: Never Smoker Substance Use Type: None - Medications Home Medications: Home Medications Medication Instructions Recorded Confirmed Last Taken Type Gabapentin [Neurontin] 1,200 mg PO BID 03/04/17 05/19/17 05/14/17 History HYDROcodone/ACETAMINOPHEN 1 each PO BID PRN 03/04/17 05/19/17 05/07/17 History [Hydrocodone-Acetamin 10-325 mg] fentaNYL AMP [Sublimaze Nicu] 75 mcg IM QMONTH 03/24/17 05/19/17 04/18/17 History Gabapentin [Neurontin] 1,200 mg PO BID #60 capsule 05/21/17 Unknown Rx Lacosamide [Vimpat] 50 mg PO Q12HR #60 tablet 05/21/17 Unknown Rx Lisinopril [Prinivil] 10 mg PO QDAY #30 tablet 05/21/17 Unknown Rx Magnesium Oxide [Mag-Oxide 200 mg PO DAILY #30 tablet 05/21/17 Unknown Rx Magnesium] Montelukast [Singulair] 10 mg PO DAILY #30 tablet 05/21/17 Unknown Rx Propranolol [Inderal] 20 mg PO BID #60 tablet 05/21/17 Unknown Rx Topiramate [Topamax] 400 mg PO BID #60 tablet 05/21/17 Unknown Rx oxyCODONE [roxiCODONE] 30 mg PO DAILY PRN tablet 05/21/17 Unknown Rx HYDROcodone/APAP 5-325 [[place] 1 each PO Q6HR PRN #12 tablet 09/29/18 Unknown Rx 5/325] Nitrofurantoin Monohyd/M-Cryst 100 mg PO BID #14 capsule 09/29/18 Unknown Rx [Macrobid 100 mg Capsule] Ondansetron [Zofran Odt] 4 mg PO Q4HR PRN #20 tab.rapdis 09/29/18 Unknown Rx Promethazine [Phenergan TAB] 25 mg PO Q6HR PRN #20 tab 09/29/18 Unknown Rx ED Physical Exam - General Limitations: No Limitations General appearance: alert, in no apparent distress - Head Head exam: Present: atraumatic, normocephalic - Eye Eye exam: Present: normal appearance, PERRL, EOMI - ENT ENT exam: Present: mucous membranes dry - Neck Neck exam: Present: normal inspection - Respiratory Respiratory exam: Present: normal lung sounds bilaterally. Absent: respiratory distress, wheezes, rales - Cardiovascular Cardiovascular Exam: Present: regular rate, normal rhythm. Absent: systolic murmur, diastolic murmur, rubs, gallop - GI/Abdominal GI/Abdominal exam: Present: soft, normal bowel sounds. Absent: distended, tenderness - Extremities Exam Extremities exam: Present: normal inspection - Back Exam Back exam: Present: normal inspection - Neurological Exam Neurological exam: Present: alert, oriented X3, CN II-XII intact. Absent: motor sensory deficit - Psychiatric Psychiatric exam: Present: normal affect, normal mood - Skin Skin exam: Present: warm, dry, intact, normal color. Absent: rash ED Course Vital Signs 09/29/18 11:16 Temperature 98.2 F Pulse Rate 96 H Respiratory 18 Rate Blood Pressure 133/89 O2 Sat by Pulse 98 Oximetry ED Medical Decision Making - Lab Data Result diagrams: 09/29/18 11:27 09/29/18 11:27 Lab Results 09/29/18 09/29/18 09/29/18 Range/Units 11:27 11:27 11:27 WBC 4.8 (4.5-11.0) K/mm3 RBC 4.97 (3.65-5.03) M/mm3 Hgb 13.4 (10.1-14.3) gm/dl Hct 41.2 (30.3-42.9) % MCV 83 (79-97) fl MCH 27 L (28-32) pg MCHC 33 (30-34) % RDW 13.3 (13.2-15.2) % Plt Count 304 (140-440) K/mm3 Lymph % (Auto) 46.1 H (13.4-35.0) % [place] % (Auto) 6.2 (0.0-7.3) % Eos % (Auto) 0.9 (0.0-4.3) % Baso % (Auto) 0.8 (0.0-1.8) % Lymph # 2.2 (1.2-5.4) K/mm3 [place] # 0.3 (0.0-0.8) K/mm3 Eos # 0.0 (0.0-0.4) K/mm3 Baso # 0.0 (0.0-0.1) K/mm3 Seg Neutrophils % 46.0 (40.0-70.0) % Seg Neutrophils # 2.2 (1.8-7.7) K/mm3 Sodium 136 L (137-145) mmol/L Potassium 4.4 (3.6-5.0) mmol/L Chloride 98.6 (98-107) mmol/L Carbon Dioxide 24 (22-30) mmol/L Anion Gap 18 mmol/L BUN 11 (7-17) mg/dL Creatinine 0.7 (0.7-1.2) mg/dL Estimated GFR > 60 ml/min BUN/Creatinine Ratio 16 % Glucose 464 H (65-100) mg/dL Calcium 8.9 (8.4-10.2) mg/dL Total Bilirubin 0.40 (0.1-1.2) mg/dL AST 10 (5-40) units/L ALT 12 (7-56) units/L Alkaline Phosphatase 86 (35-129) units/L Total Protein 6.9 (6.3-8.2) g/dL Albumin 4.2 (3.9-5) g/dL Albumin/Globulin Ratio 1.6 % Lipase 21 (13-60) units/L Urine Color (Yellow) Urine Turbidity (Clear) Urine pH (5.0-7.0) Ur Specific [place] (1.003-1.030) Urine Protein (Negative) mg/dL Urine Glucose (UA) (Negative) mg/dL Urine Ketones (Negative) mg/dL Urine Blood (Negative) Urine Nitrite (Negative) Urine Bilirubin (Negative) Urine Urobilinogen (<2.0) mg/dL Ur Leukocyte Esterase (Negative) Urine WBC (Auto) (0.0-6.0) /HPF Urine RBC (Auto) (0.0-6.0) /HPF U Epithel Cells (Auto) (0-13.0) /HPF Urine Mucus /HPF 09/29/18 Range/Units 11:31 WBC (4.5-11.0) K/mm3 RBC (3.65-5.03) M/mm3 Hgb (10.1-14.3) gm/dl Hct (30.3-42.9) % MCV (79-97) fl MCH (28-32) pg MCHC (30-34) % RDW (13.2-15.2) % Plt Count (140-440) K/mm3 Lymph % (Auto) (13.4-35.0) % [place] % (Auto) (0.0-7.3) % Eos % (Auto) (0.0-4.3) % Baso % (Auto) (0.0-1.8) % Lymph # (1.2-5.4) K/mm3 [place] # (0.0-0.8) K/mm3 Eos # (0.0-0.4) K/mm3 Baso # (0.0-0.1) K/mm3 Seg Neutrophils % (40.0-70.0) % Seg Neutrophils # (1.8-7.7) K/mm3 Sodium (137-145) mmol/L Potassium (3.6-5.0) mmol/L Chloride (98-107) mmol/L Carbon Dioxide (22-30) mmol/L Anion Gap mmol/L BUN (7-17) mg/dL Creatinine (0.7-1.2) mg/dL Estimated GFR ml/min BUN/Creatinine Ratio % Glucose (65-100) mg/dL Calcium (8.4-10.2) mg/dL Total Bilirubin (0.1-1.2) mg/dL AST (5-40) units/L ALT (7-56) units/L Alkaline Phosphatase (35-129) units/L Total Protein (6.3-8.2) g/dL Albumin (3.9-5) g/dL Albumin/Globulin Ratio % Lipase (13-60) units/L Urine Color Yellow (Yellow) Urine Turbidity Slightly-cloudy (Clear) Urine pH 5.0 (5.0-7.0) Ur Specific [place] 1.033 H (1.003-1.030) Urine Protein <15 mg/dl (Negative) mg/dL Urine Glucose (UA) >=500 (Negative) mg/dL Urine Ketones Tr (Negative) mg/dL Urine Blood Neg (Negative) Urine Nitrite Pos (Negative) Urine Bilirubin Neg (Negative) Urine Urobilinogen < 2.0 (<2.0) mg/dL Ur Leukocyte Esterase Sm (Negative) Urine WBC (Auto) 39.0 H (0.0-6.0) /HPF Urine RBC (Auto) 2.0 (0.0-6.0) /HPF U Epithel Cells (Auto) 4.0 (0-13.0) /HPF Urine Mucus 3+ /HPF - Medical Decision Making patient states she's had Dilaudid before without issue Discussed results with patient Critical care attestation.: If time is entered above; I have spent that time in minutes in the direct care of this critically ill patient, excluding procedure time. ED Disposition Clinical Impression: Nausea & vomiting, Diarrhea, UTI (urinary tract infection) Disposition: TO HOME OR SELFCARE Is pt being admited?: No Does the pt Need Aspirin: No Condition: Stable Instructions: Acute Nausea and Vomiting (ED), Acute Diarrhea (ED), Urinary Tract Infection in Women (ED) Additional Instructions: return if worse Prescriptions: Nitrofurantoin Monohyd/M-Cryst [Macrobid 100 mg Capsule] 100 mg PO BID #14 capsule HYDROcodone/APAP 5-325 [[place] 5/325] 1 each PO Q6HR PRN #12 tablet PRN Reason: Pain Promethazine [Phenergan TAB] 25 mg PO Q6HR PRN #20 tab PRN Reason: Nausea Ondansetron [Zofran Odt] 4 mg PO Q4HR PRN #20 tab.rapdis PRN Reason: Nausea Referrals: JUAN CARLOS BARROW JR, MD [Primary Care Provider] - 3-5 Days Time of Disposition: 14:51
== END 2018-09-29 15:08 | disposition home or self-care (01) ==
LOC: ED 11:00
DX: N39.0 Urinary tract infection, site not specified (principal); R11.2 Nausea with vomiting, unspecified; R19.7 Diarrhea, unspecified; J45.909 Unspecified asthma, uncomplicated; I11.0 Hypertensive heart disease with heart failure; I50.9 Heart failure, unspecified; E11.9 Type 2 diabetes mellitus without complications; Z90.12 Acquired absence of left breast and nipple; Z88.2 Allergy status to sulfonamides; Z88.5 Allergy status to narcotic agent; Z91.010 Allergy to peanuts; Z91.018 Allergy to other foods; Z91.040 Latex allergy status; Z91.030 Bee allergy status
CPT/HCPCS: 36415; 80053; 81001; 83690; 85025; 96361; 96374; 96375; 99283; J1170; J2405; J7030

== ENCOUNTER 2018-11-22 23:55 | Inpatient (IN) | payer MEDICARE ==
[2018-11-23 00:36] LABS: Hematocrit 38.3 % (30.3-42.9); Hemoglobin 13.1 gm/dl (10.1-14.3); Mean Corpuscular HGB Conc 34 % (30-34); Mean Corpuscular Volume 83 fl (79-97); Platelet Count 286 K/mm3 (140-440); Red Blood Count 4.63 M/mm3 (3.65-5.03); Red Cell Distribution Width 13.5 % (13.2-15.2)
[2018-11-23 00:48] LABS: INR 0.87 (0.87-1.13)
[2018-11-23 00:49] LABS: Partial Thromboplastin Time 21.9 Sec. (24.2-36.6)
--- NOTE | 2018-11-23 00:53 | Cat Scan Report ---
CT HEAD WITHOUT CONTRAST INDICATION: neuro deficits <6hrs or sx present upon awakening. TECHNIQUE: All CT scans at this location are performed using CT dose reduction for ALARA by means of automated e xposure control. COMPARISON: 05/20/2017. FINDINGS: HEMORRHAGE: None. EXTRA-AXIAL SPACES: Normal in size and morphology for the patient's age. VENTRICULAR SYSTEM: Normal in size and morphology for the patient's age. BRAIN PARENCHYMA: No acute findings. MIDLINE SHIFT OR HERNIATION: None. ORBITS: Normal as visualized. SOFT TISSUES OF HEAD: Normal. CALVARIUM: Normal. VISUALIZED PARANASAL SINUSES AND MASTOID AIR CELLS: Clear. ADDITIONAL FINDINGS: None. IMPRESSION: 1. No acute intracranial abnormality. Code stroke COMMUNICATION: Time of Communication: 11:47 PM, central Licensed Practitioner Receiving Report: Dr. Soriano Signer Name: Venkat Foreman MD Signed: 11/23/2018 12:49 AM Workstation Name: [id number]
--- NOTE | 2018-11-23 01:03 | XRay Report ---
CHEST 1 VIEW INDICATION: Chest Pain. COMPARISON: One day prior. FINDINGS: Support devices: Unchanged. Heart: Stable. Lungs/Pleura: No acute pulmonary or pleural findings. IMPRESSION: 1. No significant change. Signer Name: Venkat Foreman MD Signed: 11/23/2018 12:59 AM Workstation Name: [id number]
[2018-11-23 01:08] LABS: BUN/Creatinine Ratio 20; Blood Urea Nitrogen 14 mg/dL (7-17); Calcium 8.9 mg/dL (8.4-10.2); Hemolysis Index 10
--- NOTE | 2018-11-23 01:34 | Emergency Department Report ---
ED Neuro Deficit HPI - General Chief Complaint: Chest Pain Stated Complaint: CHESTPAIN/LEFT SIDE NUMB/DIZZY Time Seen by Provider: 11/23/18 00:35 Source: patient, old records reviewed (cardiac catheterization May 2017 normal coronary artery) Mode of arrival: Ambulatory Limitations: No Limitations - History of Present Illness Initial Comments: 43-year-old female the past medical history of CVA with residual right sided weakness, CHF, asthma, diabetes, hypertension, breast CA, and seizures presents to Hospital complaints numbness to left side of her body since 4 PM Friday of the . Symptoms have been constant and progressively worsening. She also complains of some numbness to left side of her tongue. She also complains of intermittent left-sided chest pain described as a twisting type of pain. Pain is 9/10 in intensity, worse with palpation and movement of her left arm/shoulder. Positive mild sob and nausea without diaphoresis. At her baseline patient is able to walk without assistance but occasionally will uses a cane due to right-sided weakness. She takes aspirin 81 mg daily. PMD: Dr. Amando Arellano - Related Data Home Medications: Home Medications Medication Instructions Recorded Confirmed Last Taken Gabapentin [Neurontin] 1,200 mg PO BID 03/04/17 05/19/17 05/14/17 HYDROcodone/ACETAMINOPHEN 1 each PO BID PRN 03/04/17 05/19/17 05/07/17 [Hydrocodone-Acetamin 10-325 mg] fentaNYL AMP [Sublimaze Nicu] 75 mcg IM QMONTH 03/24/17 05/19/17 04/18/17 Previous Rx's Medication Instructions Recorded Last Taken Type Gabapentin [Neurontin] 1,200 mg PO BID #60 capsule 05/21/17 Unknown Rx Lacosamide [Vimpat] 50 mg PO Q12HR #60 tablet 05/21/17 Unknown Rx Lisinopril [Prinivil] 10 mg PO QDAY #30 tablet 05/21/17 Unknown Rx Magnesium Oxide [Mag-Oxide 200 mg PO DAILY #30 tablet 05/21/17 Unknown Rx Magnesium] Montelukast [Singulair] 10 mg PO DAILY #30 tablet 05/21/17 Unknown Rx Propranolol [Inderal] 20 mg PO BID #60 tablet 05/21/17 Unknown Rx Topiramate [Topamax] 400 mg PO BID #60 tablet 05/21/17 Unknown Rx oxyCODONE [roxiCODONE] 30 mg PO DAILY PRN tablet 05/21/17 Unknown Rx HYDROcodone/APAP 5-325 [Biggs 1 each PO Q6HR PRN #12 tablet 09/29/18 Unknown Rx 5/325] Nitrofurantoin Monohyd/M-Cryst 100 mg PO BID #14 capsule 09/29/18 Unknown Rx [Macrobid 100 mg Capsule] Ondansetron [Zofran Odt] 4 mg PO Q4HR PRN #20 tab.rapdis 09/29/18 Unknown Rx Promethazine [Phenergan TAB] 25 mg PO Q6HR PRN #20 tab 09/29/18 Unknown Rx Allergies/Adverse Reactions: Allergies Allergy/AdvReac Type Severity Reaction Status Date / Time albuterol Allergy Anaphylaxis Verified 09/29/18 11:04 aripiprazole [From Abilify] Allergy Anaphylaxis Verified 09/29/18 11:04 bee venom protein (honey bee) Allergy Anaphylaxis Verified 09/29/18 11:04 black pepper Allergy Anaphylaxis Verified 09/29/18 11:04 cocoa butter Allergy Anaphylaxis Verified 09/29/18 11:04 coconut Allergy Anaphylaxis Verified 09/29/18 11:04 iodine Allergy Anaphylaxis Verified 09/29/18 11:04 ketorolac [From Toradol] Allergy Anaphylaxis Verified 09/29/18 11:04 latex Allergy Anaphylaxis Verified 09/29/18 11:04 lidocaine Allergy Anaphylaxis Verified 09/29/18 11:04 morphine Allergy Anaphylaxis Verified 09/29/18 11:04 nalbuphine [From Nubain] Allergy Anaphylaxis Verified 09/29/18 11:04 onion Allergy Anaphylaxis Verified 09/29/18 11:04 peanut Allergy Anaphylaxis Verified 09/29/18 11:04 Penicillins Allergy Anaphylaxis Verified 09/29/18 11:04 pregabalin [From Lyrica] Allergy Anaphylaxis Verified 09/29/18 11:04 procaine [From Novocain] Allergy Anaphylaxis Verified 09/29/18 11:04 sulfamethoxazole Allergy Anaphylaxis Verified 09/29/18 11:04 [From Bactrim] tramadol Allergy Anaphylaxis Verified 09/29/18 11:04 trimethoprim [From Bactrim] Allergy Anaphylaxis Verified 09/29/18 11:04 watermelon Allergy Anaphylaxis Verified 09/29/18 11:04 pepperoni Allergy Anaphylaxis Uncoded 09/29/18 11:04 salami Allergy Anaphylaxis Uncoded 09/29/18 11:04 ED Review of Systems ROS: Stated complaint: CHESTPAIN/LEFT SIDE NUMB/DIZZY Other details as noted in HPI Comment: All other systems reviewed and negative ED Past Medical Hx - Past Medical History Previous Medical History?: Yes Hx Hypertension: Yes Hx CVA: Yes (old weakness to right side) Hx Heart Attack/AMI: Yes Hx Congestive Heart Failure: Yes Hx Diabetes: Yes Hx Seizures: Yes Hx Asthma: Yes Additional medical history: 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 hysterectomy - Social History Smoking Status: Never Smoker Substance Use Type: None - Medications Home Medications: Home Medications Medication Instructions Recorded Confirmed Last Taken Type Gabapentin [Neurontin] 1,200 mg PO BID 03/04/17 05/19/17 05/14/17 History HYDROcodone/ACETAMINOPHEN 1 each PO BID PRN 03/04/17 05/19/17 05/07/17 History [Hydrocodone-Acetamin 10-325 mg] fentaNYL AMP [Sublimaze Nicu] 75 mcg IM QMONTH 03/24/17 05/19/17 04/18/17 History Gabapentin [Neurontin] 1,200 mg PO BID #60 capsule 05/21/17 Unknown Rx Lacosamide [Vimpat] 50 mg PO Q12HR #60 tablet 05/21/17 Unknown Rx Lisinopril [Prinivil] 10 mg PO QDAY #30 tablet 05/21/17 Unknown Rx Magnesium Oxide [Mag-Oxide 200 mg PO DAILY #30 tablet 05/21/17 Unknown Rx Magnesium] Montelukast [Singulair] 10 mg PO DAILY #30 tablet 05/21/17 Unknown Rx Propranolol [Inderal] 20 mg PO BID #60 tablet 05/21/17 Unknown Rx Topiramate [Topamax] 400 mg PO BID #60 tablet 05/21/17 Unknown Rx oxyCODONE [roxiCODONE] 30 mg PO DAILY PRN tablet 05/21/17 Unknown Rx HYDROcodone/APAP 5-325 [Biggs 1 each PO Q6HR PRN #12 tablet 09/29/18 Unknown Rx 5/325] Nitrofurantoin Monohyd/M-Cryst 100 mg PO BID #14 capsule 09/29/18 Unknown Rx [Macrobid 100 mg Capsule] Ondansetron [Zofran Odt] 4 mg PO Q4HR PRN #20 tab.rapdis 09/29/18 Unknown Rx Promethazine [Phenergan TAB] 25 mg PO Q6HR PRN #20 tab 09/29/18 Unknown Rx ED Neuro Physical Exam - General Limitations: No Limitations Suspected Stroke: Yes - NIHSS Assessment Interval: Baseline 1a. Level of Consciousness: alert/keenly responsive 1b. LOC Questions: answers both correctly 1c. LOC Commands: performs tasks correctly 2. Best Gaze: normal 3. Visual: no visual loss 4. Facial Palsy: normal symmetrical movement 5b. Motor Arm Right: no drift 5a. Motor Arm Left: no drift 6a. Motor Leg Left: no drift 6b. Motor Leg Right: no drift 7. Limb Ataxia: absent 8. Sensory: mild/moderate sensory loss (left face, leg and arm) 9. Best Language: no aphasia 10. Dysarthria: normal 11. Extinction/Inattention: no abnormality Total Score: 1 Stroke Severity: Minor Stroke - Other Other exam information: General: No limitations, patient is alert in no acute distress Head exam: Atraumatic, normocephalic Eyes exam: Normal appearance, pupils equal reactive to light, extraocular movements intact ENT: Moist mucous membrane, Neck exam: Normal inspection, full range of motion, no meningismus nontender Respiratory exam: Clear to auscultation bilateral, no wheezes, rales, crackles Cardiovascular: Normal rate and rhythm, tenderness to left chest wall Abdomen: Soft, nondistended, and nontender, with normal bowel sounds, no rebound, or guarding Extremity: Full range of motion normal inspection no deformity,no calf tenderness or edema Back: Normal Inspection, full range of motion, no tenderness Neurologic: Alert, oriented x3, Psychiatric: normal affect, normal mood Skin: Warm, dry, intact ED Course Vital Signs 11/23/18 11/23/18 00:21 01:10 Temperature 97.9 F Pulse Rate 87 Respiratory 12 Rate Blood Pressure 145/100 [Right] O2 Sat by Pulse 97 Oximetry - Consultations Consultation #1: 11/23/18 01:[address] Ryan, agrees pt is out of the window for tpa, rec inpt stroke workup - Lab Data Result diagrams: 11/23/18 00:16 11/23/18 00:16 Lab Results 11/23/18 11/23/18 11/23/18 Range/Units 00:16 00:16 00:16 WBC 5.2 (4.5-11.0) K/mm3 RBC 4.63 (3.65-5.03) M/mm3 Hgb 13.1 (10.1-14.3) gm/dl Hct 38.3 (30.3-42.9) % MCV 83 (79-97) fl MCH 28 (28-32) pg MCHC 34 (30-34) % RDW 13.5 (13.2-15.2) % Plt Count 286 (140-440) K/mm3 Lymph % (Auto) Retail Service Specialist Add Manual Diff Complete Total Counted 100 Seg Neutrophils % Retail Service Specialist Seg Neuts % (Manual) 34.0 L (40.0-70.0) % Band Neutrophils % 0 % Lymphocytes % (Manual) 61.0 H (13.4-35.0) % Reactive Lymphs % (Man) 0 % Monocytes % (Manual) 3.0 (0.0-7.3) % Eosinophils % (Manual) 2.0 (0.0-4.3) % Basophils % (Manual) 0 (0.0-1.8) % Metamyelocytes % 0 % Myelocytes % 0 % Promyelocytes % 0 % Blast Cells % 0 % Nucleated RBC % Not Reportable Seg Neutrophils # Man 1.8 (1.8-7.7) K/mm3 Band Neutrophils # 0.0 K/mm3 Lymphocytes # (Manual) 3.2 (1.2-5.4) K/mm3 Abs React Lymphs (Man) 0.0 K/mm3 Monocytes # (Manual) 0.2 (0.0-0.8) K/mm3 Eosinophils # (Manual) 0.1 (0.0-0.4) K/mm3 Basophils # (Manual) 0.0 (0.0-0.1) K/mm3 Metamyelocytes # 0.0 K/mm3 Myelocytes # 0.0 K/mm3 Promyelocytes # 0.0 K/mm3 Blast Cells # 0.0 K/mm3 WBC Morphology Not Reportable Hypersegmented Neuts Not Reportable Hyposegmented Neuts Not Reportable Hypogranular Neuts Not Reportable Smudge Cells Not Reportable Toxic Granulation Not Reportable Toxic Vacuolation Not Reportable Dohle Bodies Not Reportable Pelger-Huet Anomaly Not Reportable Melissa Rods Not Reportable Platelet Estimate Consistent w auto Clumped Platelets Not Reportable Plt Clumps, EDTA Not Reportable Large Platelets Not Reportable Giant Platelets Not Reportable Platelet Satelliting Not Reportable Plt Morphology Comment Not Reportable RBC Morphology Normal Dimorphic RBCs Not Reportable Polychromasia Not Reportable Hypochromasia Not Reportable Poikilocytosis Not Reportable Anisocytosis Not Reportable Microcytosis Not Reportable Macrocytosis Not Reportable Spherocytes Not Reportable Pappenheimer Bodies Not Reportable Sickle Cells Not Reportable Target Cells Not Reportable Tear Drop Cells Not Reportable Ovalocytes Not Reportable Helmet Cells Not Reportable Wyatt-Ages Bodies Not Reportable Ralph Rings Not Reportable Adarsh Cells Not Reportable Bite Cells Not Reportable Crenated Cell Not Reportable Elliptocytes Not Reportable Acanthocytes (Spur) Not Reportable Rouleaux Not Reportable Hemoglobin C Crystals Not Reportable Schistocytes Not Reportable Malaria parasites Not Reportable Phillip Bodies Not Reportable Hem Pathologist Commnt No PT 11.6 L (12.2-14.9) Sec. INR 0.87 (0.87-1.13) APTT 21.9 L (24.2-36.6) Sec. Thrombin Time 16.0 (15.1-19.6) Sec. Sodium 134 L (137-145) mmol/L Potassium 3.9 (3.6-5.0) mmol/L Chloride 101.1 (98-107) mmol/L Carbon Dioxide 21 L (22-30) mmol/L Anion Gap 16 mmol/L BUN 14 (7-17) mg/dL Creatinine 0.7 (0.7-1.2) mg/dL Estimated GFR > 60 ml/min BUN/Creatinine Ratio 20 % Glucose 348 H (65-100) mg/dL Calcium 8.9 (8.4-10.2) mg/dL Troponin T < 0.010 (0.00-0.029) ng/mL - EKG Data -: EKG Interpreted by Tn EKG shows normal: sinus rhythm, axis (qrs 10), QRS complexes (qrsd 84), ST-T waves (no stemi) Rate: normal (78) - Radiology Data Radiology results: report reviewed CHEST 1 VIEW INDICATION: Chest Pain. COMPARISON: One day prior. FINDINGS: Support devices: Unchanged. Heart: Stable. Lungs/Pleura: No acute pulmonary or pleural findings. IMPRESSION: 1. No significant change CT HEAD WITHOUT CONTRAST INDICATION: neuro deficits <6hrs or sx present upon aw akening. TECHNIQUE: All CT scans at this location are performed using CT dose reduction for ALARA by means of automated exposure control. COMPARISON: 05/20/2017. FINDINGS: HEMORRHAGE: None. EXTRA-AXIAL SPACES: Normal in size and morphology for the patient's age. VENTRICULAR SYSTEM: Normal in size and morphology for the patient's age. BRAIN PARENCHYMA: No acute findings. MIDLINE SHIFT OR HERNIATION: None. ORBITS: Normal as visualized. SOFT TISSUES OF HEAD: Normal. CALVARIUM: Normal. VISUALIZED PARANASAL SINUSES AND MASTOID AIR CELLS: Clear. ADDITIONAL FINDINGS: None. IMPRESSION: 1. No acute intracranial abnormality. - Medical Decision Making Patient has a normal EKG was unchanged from previous and initial negative cardiac enzymes. Chest pain appears to be reproducible likely musculoskeletal in origin. Patient also had a cardiac cath in May 2017 here that showed normal coronary arteries. Patient will be admitted to the hospital for suspected sensory stroke. Aspirin 325 mg provided in the ED. Case discussed with tele Neuro prior to admission. - Differential Diagnosis neuropathy, CVA, PA, muscle strain Critical Care Time: No Critical care attestation.: If time is entered above; I have spent that time in minutes in the direct care of this critically ill patient, excluding procedure time. ED Disposition Clinical Impression: Left sided numbness, Left-sided chest wall pain, History of CVA (cerebrovascular accident), Hx of breast cancer Disposition: OP ADMIT IP TO THIS HOSP Is pt being admited?: Yes Condition: Stable Time of Disposition: 01:52 (Dr Morales/hosp)
[2018-11-23 01:35] LABS: Basophils % (Manual) 0 % (0.0-1.8); Platelet Estimate Consistent w Auto; RBC Morphology Normal; Total Cells Counted 100
[2018-11-23] MEDS ORDERED: ASPIRIN PO ONE (01:53)
[2018-11-23] MEDS ORDERED: SODIUM CHLORIDE FLUSH SYRINGE 10 ML IV PRN (02:49)
[2018-11-23] MEDS ORDERED: MILK OF MAGNESIA PO PRN (02:49)
[2018-11-23] MEDS ORDERED: TYLENOL PO PRN (02:49)
[2018-11-23] MEDS ORDERED: PROVENTIL IH PRN (02:49)
[2018-11-23] MEDS ORDERED: DULCOLAX PR PRN (02:49)
[2018-11-23] MEDS ORDERED: ZOFRAN IV PRN (02:49)
--- NOTE | 2018-11-23 03:03 | History and Physical Report ---
<WILBER LÓPEZ - Last Filed: 11/23/18 03:22> History of Present Illness Date of examination: 11/23/18 Date of admission: 11/23/2018 Chief complaint: Left-sided weakness, numbness, chest pain History of present illness: 43-year-old -[place] female with history of seizure disorder, hypertension, diastolic heart failure, coronary artery disease, NC 2, CVA with right-sided deficits, asthma, DM 2, breast cancer s/p vasectomy and breast reconstruction who presents to [facility] ED with complaints of numbness, left-sided weakness. Patient states that approximately 4 PM on Friday afternoon she experienced chest pain,. mild sob with exertion followed by numbness and left- sided weakness. She states that her speech was also slurred and this was confirmed by her sister who was present at the time. She describes chest pain as intermittent and rates it 6/10. The time of my examination patient states that she did not currently have any chest pains and all her symptoms have resolved. She admits to have an some mild right sided residual deficits from previous CVA. At baseline she ambulates with a cane when walking long dista nces. Denies: Cough, emesis, fever, headache, visual disturbances, or gait dysfunction Past History Past Medical History: acute NC (x2), CAD, cancer (breat CA), diabetes, heart failure (diastolic), seizures, other (past) Past Surgical History: cholecystectomy, hysterectomy ( lumpectomy of left breast, left breast reconstructive surgery) Social history: no significant social history Family history: no significant family history Medications and Allergies Allergies Allergy/AdvReac Type Severity Reaction Status Date / Time albuterol Allergy Anaphylaxis Verified 09/29/18 11:04 aripiprazole [From Abilify] Allergy Anaphylaxis Verified 09/29/18 11:04 bee venom protein (honey bee) Allergy Anaphylaxis Verified 09/29/18 11:04 black pepper Allergy Anaphylaxis Verified 09/29/18 11:04 cocoa butter Allergy Anaphylaxis Verified 09/29/18 11:04 coconut Allergy Anaphylaxis Verified 09/29/18 11:04 iodine Allergy Anaphylaxis Verified 09/29/18 11:04 ketorolac [From Toradol] Allergy Anaphylaxis Verified 09/29/18 11:04 latex Allergy Anaphylaxis Verified 09/29/18 11:04 lidocaine Allergy Anaphylaxis Verified 09/29/18 11:04 morphine Allergy Anaphylaxis Verified 09/29/18 11:04 nalbuphine [From Nubain] Allergy Anaphylaxis Verified 09/29/18 11:04 onion Allergy Anaphylaxis Verified 09/29/18 11:04 peanut Allergy Anaphylaxis Verified 09/29/18 11:04 Penicillins Allergy Anaphylaxis Verified 09/29/18 11:04 pregabalin [From Lyrica] Allergy Anaphylaxis Verified 09/29/18 11:04 procaine [From Novocain] Allergy Anaphylaxis Verified 09/29/18 11:04 sulfamethoxazole Allergy Anaphylaxis Verified 09/29/18 11:04 [From Bactrim] tramadol Allergy Anaphylaxis Verified 09/29/18 11:04 trimethoprim [From Bactrim] Allergy Anaphylaxis Verified 09/29/18 11:04 watermelon Allergy Anaphylaxis Verified 09/29/18 11:04 pepperoni Allergy Anaphylaxis Uncoded 09/29/18 11:04 salami Allergy Anaphylaxis Uncoded 09/29/18 11:04 Home Medications Medication Instructions Recorded Confirmed Last Taken Type Lisinopril [Prinivil] 10 mg PO QDAY #30 tablet 05/21/17 11/23/18 11/22/18 Rx Magnesium Oxide [Mag-Oxide 200 mg PO DAILY #30 tablet 05/21/17 11/23/18 11/22/18 Rx Magnesium] Montelukast [Singulair] 10 mg PO DAILY #30 tablet 05/21/17 11/23/18 11/22/18 Rx Propranolol [Inderal] 20 mg PO BID #60 tablet 05/21/17 11/23/18 11/22/18 Rx Topiramate [Topamax] 400 mg PO BID #60 tablet 05/21/17 11/23/18 11/22/18 Rx oxyCODONE [roxiCODONE] 30 mg PO DAILY PRN tablet 05/21/17 11/23/18 11/22/18 Rx HYDROcodone/APAP 5-325 [Flynn 1 each PO Q6HR PRN #12 tablet 09/29/18 11/23/18 11/22/18 Rx 5/325] ALPRAZolam [Xanax TAB] 2 mg PO TID PRN 11/23/18 11/23/18 11/22/18 History AtorvaSTATin [Lipitor] 10 mg PO QHS 11/23/18 11/23/18 11/22/18 History Cetirizine HCl [ZyrTEC 10mg cap] 10 mg PO DAILY 11/23/18 11/23/18 11/22/18 History LORazepam [Ativan] 2 mg PO Q8HR PRN 11/23/18 11/23/18 11/22/18 History Propranolol [Inderal] 20 mg PO BID 11/23/18 11/23/18 11/22/18 History Tamoxifen Citrate 25 mg PO BID 11/23/18 11/23/18 11/22/18 History Active Meds: Active Medications Acetaminophen (Tylenol) 650 mg PO Q4H PRN PRN Reason: Pain, Mild (1-3) Albuterol (Proventil) 2.5 mg IH Q3HRT PRN PRN Reason: Shortness Of Breath Aspirin (Aspirin) 325 mg PO QDAY CONI Atorvastatin Calcium (Lipitor) 40 mg PO QHS CONI Bisacodyl (Dulcolax) 10 mg CO QDAY PRN PRN Reason: Constipation Enoxaparin Sodium (Lovenox) 30 mg SUB-Q QDAY CONI Enoxaparin Sodium (Lovenox) 40 mg SUB-Q QDAY@2200 COIN Lisinopril (Zestril) 10 mg PO QDAY CONI Magnesium Hydroxide (Milk Of Magnesia) 30 ml PO Q4H PRN PRN Reason: Constipation Miscellaneous Medication (Cetirizine Hcl [Zyrtec 10mg Cap]) 10 mg PO DAILY [facility] Miscellaneous Medication (Tamoxifen Citrate [Tamoxifen Citrate]) 25 mg PO BID [facility] Montelukast Sodium (Singulair) 10 mg PO DAILY [facility] Ondansetron HCl (Zofran) 4 mg IV Q8H PRN PRN Reason: Nausea And Vomiting Propranolol HCl (Inderal) 20 mg PO BID [facility] Sodium Chloride (Sodium Chloride Flush Syringe 10 Ml) 10 ml INJ PRN PRN PRN Reason: LINE FLUSH Topiramate (Topamax) 400 mg PO BID [facility] Review of Systems All systems: negative (reviewed and no additional remarkable complaints except as noted below) Cardiovascular: chest pain, shortness of breath Gastrointestinal: nausea Musculoskeletal: gait dysfunction (at baseline ambulates with cane for long distance walking) Neurological: weakness (new onset left-sided weakness which has resolved, residual right-sided weakness from previous CVA) Exam - Physical Exam Narrative exam: Physical exam General appearance: Present: No acute distress, resting but easily arouses, freddie ented 3 - EENT Eyes: Present: PERRL, EOM intact ENT: hearing intact, normal dentition - Neck Neck: Present: supple, normal ROM - Respiratory Respiratory effort: Non-labored Respiratory: Clear throughout - Cardiovascular Heart rate:78 (bpm) Rhythm: Sinus rhythm Heart Sounds: Present: S1 & S2. Absent: rub, click - Extremities Extremities: no ischemia, pulses intact, - Peripheral Assessment Peripheral Pulses: within normal limits - Abdominal General gastrointestinal: soft, non-tender, normal bowel sounds - Integumentary Integumentary: Present: warm, dry - Musculoskeletal Musculoskeletal: Slight right-sided deficit from previous CVA, at baseline ambulates with cane for long distance walking -Neurological Neurological: CN II-XII intact - Psychiatric Psychiatric: cooperative - Constitutional Vitals: Temp Pulse Resp BP Pulse Ox 97.9 F 83 18 149/96 97 11/23/18 01:10 11/23/18 02:11 11/23/18 02:11 11/23/18 02:11 11/23/18 02:11 Results - Labs CBC & Chem 7: 11/23/18 00:16 11/23/18 00:16 Labs: Laboratory Last Values WBC 5.2 K/mm3 (4.5-11.0) 11/23/18 00:16 RBC 4.63 M/mm3 (3.65-5.03) 11/23/18 00:16 Hgb 13.1 gm/dl (10.1-14.3) 11/23/18 00:16 Hct 38.3 % (30.3-42.9) 11/23/18 00:16 MCV 83 fl (79-97) 11/23/18 00:16 MCH 28 pg (28-32) 11/23/18 00:16 MCHC 34 % (30-34) 11/23/18 00:16 RDW 13.5 % (13.2-15.2) 11/23/18 00:16 Plt Count 286 K/mm3 (140-440) 11/23/18 00:16 Lymph % (Auto) [employer] 11/23/18 00:16 Add Manual Diff Complete 11/23/18 00:16 Total Counted 100 11/23/18 00:16 Seg Neutrophils % [employer] 11/23/18 00:16 Seg Neuts % (Manual) 34.0 % (40.0-70.0) L 11/23/18 00:16 0 % 11/23/18 00:16 61.0 % (13.4-35.0) H 11/23/18 00:16 Reactive Lymphs % (Man) 0 % 11/23/18 00:16 3.0 % (0.0-7.3) 11/23/18 00:16 2.0 % (0.0-4.3) 11/23/18 00:16 0 % (0.0-1.8) 11/23/18 00:16 0 % 11/23/18 00:16 0 % 11/23/18 00:16 0 % 11/23/18 00:16 0 % 11/23/18 00:16 Nucleated RBC % Not Reportable 11/23/18 00:16 Seg Neutrophils # Man 1.8 K/mm3 (1.8-7.7) 11/23/18 00:16 Band Neutrophils # 0.0 K/mm3 11/23/18 00:16 3.2 K/mm3 (1.2-5.4) 11/23/18 00:16 Abs React Lymphs (Man) 0.0 K/mm3 11/23/18 00:16 0.2 K/mm3 (0.0-0.8) 11/23/18 00:16 0.1 K/mm3 (0.0-0.4) 11/23/18 00:16 0.0 K/mm3 (0.0-0.1) 11/23/18 00:16 0.0 K/mm3 11/23/18 00:16 0.0 K/mm3 11/23/18 00:16 0.0 K/mm3 11/23/18 00:16 Blast Cells # 0.0 K/mm3 11/23/18 00:16 WBC Morphology Not Reportable 11/23/18 00:16 Hypersegmented Neuts Not Reportable 11/23/18 00:16 Hyposegmented Neuts Not Reportable 11/23/18 00:16 Hypogranular Neuts Not Reportable 11/23/18 00:16 Not Reportable 11/23/18 00:16 Not Reportable 11/23/18 00:16 Not Reportable 11/23/18 00:16 Not Reportable 11/23/18 00:16 Not Reportable 11/23/18 00:16 Not Reportable 11/23/18 00:16 Consistent w auto 11/23/18 00:16 Not Reportable 11/23/18 00:16 Plt Clumps, EDTA Not Reportable 11/23/18 00:16 Not Reportable 11/23/18 00:16 Not Reportable 11/23/18 00:16 Not Reportable 11/23/18 00:16 Plt Morphology Comment Not Reportable 11/23/18 00:16 RBC Morphology Normal 11/23/18 00:16 Dimorphic RBCs Not Reportable 11/23/18 00:16 Not Reportable 11/23/18 00:16 Not Reportable 11/23/18 00:16 Not Reportable 11/23/18 00:16 Not Reportable 11/23/18 00:16 Not Reportable 11/23/18 00:16 Not Reportable 11/23/18 00:16 Not Reportable 11/23/18 00:16 Not Reportable 11/23/18 00:16 Not Reportable 11/23/18 00:16 Not Reportable 11/23/18 00:16 Not Reportable 11/23/18 00:16 Not Reportable 11/23/18 00:16 Not Reportable 11/23/18 00:16 Not Reportable 11/23/18 00:16 Not Reportable 11/23/18 00:16 Not Reportable 11/23/18 00:16 Not Reportable 11/23/18 00:16 Not Reportable 11/23/18 00:16 Not Reportable 11/23/18 00:16 Acanthocytes (Spur) Not Reportable 11/23/18 00:16 Rouleaux Not Reportable 11/23/18 00:16 Not Reportable 11/23/18 00:16 Not Reportable 11/23/18 00:16 Not Reportable 11/23/18 00:16 Not Reportable 11/23/18 00:16 Hem Pathologist Commnt No 11/23/18 00:16 PT 11.6 Sec. (12.2-14.9) L 11/23/18 00:16 INR 0.87 (0.87-1.13) 11/23/18 00:16 APTT 21.9 Sec. (24.2-36.6) L 11/23/18 00:16 16.0 Sec. (15.1-19.6) 11/23/18 00:16 Sodium 134 mmol/L (137-145) L 11/23/18 00:16 Potassium 3.9 mmol/L (3.6-5.0) 11/23/18 00:16 Chloride 101.1 mmol/L (98-107) 11/23/18 00:16 Carbon Dioxide 21 mmol/L (22-30) L 11/23/18 00:16 16 mmol/L 11/23/18 00:16 BUN 14 mg/dL (7-17) 11/23/18 00:16 0.7 mg/dL (0.7-1.2) 11/23/18 00:16 Estimated GFR > 60 ml/min 11/23/18 00:16 20 % 11/23/18 00:16 Glucose 348 mg/dL (65-100) H 11/23/18 00:16 Calcium 8.9 mg/dL (8.4-10.2) 11/23/18 00:16 < 0.010 ng/mL (0.00-0.029) 11/23/18 00:16 - Imaging and Cardiology CT Scan - head: report reviewed Imaging and Cardiology: CT Head: FINDINGS: HEMORRHAGE: None. EXTRA-AXIAL SPACES: Normal in size and morphology for the patient's age. VENTRICULAR SYSTEM: Normal in size and morphology for the patient's age. BRAIN PARENCHYMA: No acute findings. MIDLINE SHIFT OR HERNIATION: None. ORBITS: Normal as visualized. SOFT TISSUES OF HEAD: Normal. CALVARIUM: Normal. VISUALIZED PARANASAL SINUSES AND MASTOID AIR CELLS: Clear. ADDITIONAL FINDINGS: None. IMPRESSION: 1. No acute intracranial abnormality. CXR: FINDINGS: Support devices: Unchanged. Heart: Stable. Lungs/Pleura: No acute pulmonary or pleural findings. MPRESSION: 1. No significant change. Assessment and Plan Assessment and plan: 43-year-old -[place] female with history of seizure disorder, hypertension, diastolic heart failure, coronary artery disease, NC 2, CVA with right-sided deficits, asthma, DM 2, breast cancer s/p vasectomy and breast reconstruction who presents to [facility] ED with complaints of numbness, left-sided weakness for approximately 4 hours on Friday afternoon. Telemetry neurologist consulted and ED. patient did not receive TPA because she was outside window of treatment. CT had was unrevealing for any acute intracranial abnormality. Will admit and consult in-patient neurology. TIA History CVA Seizure disorder Diastolic heart failure Coronary artery disease History of NC 2 History of breast cancer with left breast mastectomy and reconstruction Asthma History of tumor of pancreas Plan: Continue supportive care Continuous panel monitor Initiate seizure protocol Initiate stroke protocol Neurochecks MRI/MRA brain pending Neurology consult pending Troponin negative 1, normal continue to trend troponin Resume Topamax 400mg twice a day Monitor BP Resume home antihypertensive meds: Lisinopril 10 mg daily, Inderal 20 mg twice a day ASA 325 mg daily, Lipitor 40 mg daily at bedtime PT/OT eval and treat POC BG Monitoring Patient has history of diabetes currently not on any [id number] medication SSI coverage Hgb A1c pending DVT PPX on Lovenox Advance Directives: No VTE prophylaxis?: Chemical Plan of care discussed with patient/family: Yes <JESSE ZAMORA E - Last Filed: 11/23/18 04:14> History of Present Illness Date of admission: 11/23/18 02:36 Medications and Allergies Active Meds: Active Medications Acetaminophen (Tylenol) 650 mg PO Q4H PRN PRN Reason: Pain, Mild (1-3) Aspirin (Aspirin) 325 mg PO QDAY [facility] Atorvastatin Calcium (Lipitor) 40 mg PO QHS [facility] Bisacodyl (Dulcolax) 10 mg CO QDAY PRN PRN Reason: Constipation Dextrose (D50w (25gm) Syringe) 50 ml IV PRN PRN PRN Reason: Hypoglycemia Enoxaparin Sodium (Lovenox) 40 mg SUB-Q QDAY@2200 [facility]I Hydralazine HCl (Apresoline) 5 mg IV Q6H PRN PRN Reason: Hypertension Insulin Human Regular (Humulin R) 0 units SUB-Q ACHS CONI; Protocol Loratadine (Claritin) 10 mg PO DAILY [facility] Magnesium Hydroxide (Milk Of Magnesia) 30 ml PO Q4H PRN PRN Reason: Constipation Miscellaneous Medication (Tamoxifen Citrate [Tamoxifen Citrate]) 25 mg PO BID [facility] Montelukast Sodium (Singulair) 10 mg PO DAILY [facility] Ondansetron HCl (Zofran) 4 mg IV Q8H PRN PRN Reason: Nausea And Vomiting Sodium Chloride (Sodium Chloride Flush Syringe 10 Ml) 10 ml IV PRN PRN PRN Reason: LINE FLUSH Topiramate (Topamax) 400 mg PO BID [facility]I Exam - Constitutional Vitals: Temp Pulse Resp BP Pulse Ox 97.9 F 74 17 138/91 98 11/23/18 01:10 11/23/18 04:05 11/23/18 04:05 11/23/18 04:05 11/23/18 04:05 Results - Labs CBC & Chem 7: 11/23/18 00:16 11/23/18 00:16 Labs: Laboratory Last Values WBC 5.2 K/mm3 (4.5-11.0) 11/23/18 00:16 RBC 4.63 M/mm3 (3.65-5.03) 11/23/18 00:16 Hgb 13.1 gm/dl (10.1-14.3) 11/23/18 00:16 Hct 38.3 % (30.3-42.9) 11/23/18 00:16 MCV 83 fl (79-97) 11/23/18 00:16 MCH 28 pg (28-32) 11/23/18 00:16 MCHC 34 % (30-34) 11/23/18 00:16 RDW 13.5 % (13.2-15.2) 11/23/18 00:16 Plt Count 286 K/mm3 (140-440) 11/23/18 00:16 Lymph % (Auto) [employer] 11/23/18 00:16 Add Manual Diff Complete 11/23/18 00:16 Total Counted 100 11/23/18 00:16 Seg Neutrophils % [employer] 11/23/18 00:16 Seg Neuts % (Manual) 34.0 % (40.0-70.0) L 11/23/18 00:16 0 % 11/23/18 00:16 61.0 % (13.4-35.0) H 11/23/18 00:16 Reactive Lymphs % (Man) 0 % 11/23/18 00:16 3.0 % (0.0-7.3) 11/23/18 00:16 2.0 % (0.0-4.3) 11/23/18 00:16 0 % (0.0-1.8) 11/23/18 00:16 0 % 11/23/18 00:16 0 % 11/23/18 00:16 0 % 11/23/18 00:16 0 % 11/23/18 00:16 Nucleated RBC % Not Reportable 11/23/18 00:16 Seg Neutrophils # Man 1.8 K/mm3 (1.8-7.7) 11/23/18 00:16 Band Neutrophils # 0.0 K/mm3 11/23/18 00:16 3.2 K/mm3 (1.2-5.4) 11/23/18 00:16 Abs React Lymphs (Man) 0.0 K/mm3 11/23/18 00:16 0.2 K/mm3 (0.0-0.8) 11/23/18 00:16 0.1 K/mm3 (0.0-0.4) 11/23/18 00:16 0.0 K/mm3 (0.0-0.1) 11/23/18 00:16 0.0 K/mm3 11/23/18 00:16 0.0 K/mm3 11/23/18 00:16 0.0 K/mm3 11/23/18 00:16 Blast Cells # 0.0 K/mm3 11/23/18 00:16 WBC Morphology Not Reportable 11/23/18 00:16 Hypersegmented Neuts Not Reportable 11/23/18 00:16 Hyposegmented Neuts Not Reportable 11/23/18 00:16 Hypogranular Neuts Not Reportable 11/23/18 00:16 Not Reportable 11/23/18 00:16 Not Reportable 11/23/18 00:16 Not Reportable 11/23/18 00:16 Not Reportable 11/23/18 00:16 Not Reportable 11/23/18 00:16 Not Reportable 11/23/18 00:16 Consistent w auto 11/23/18 00:16 Not Reportable 11/23/18 00:16 Plt Clumps, EDTA Not Reportable 11/23/18 00:16 Not Reportable 11/23/18 00:16 Not Reportable 11/23/18 00:16 Not Reportable 11/23/18 00:16 Plt Morphology Comment Not Reportable 11/23/18 00:16 RBC Morphology Normal 11/23/18 00:16 Dimorphic RBCs Not Reportable 11/23/18 00:16 Not Reportable 11/23/18 00:16 Not Reportable 11/23/18 00:16 Not Reportable 11/23/18 00:16 Not Reportable 11/23/18 00:16 Not Reportable 11/23/18 00:16 Not Reportable 11/23/18 00:16 Not Reportable 11/23/18 00:16 Not Reportable 11/23/18 00:16 Not Reportable 11/23/18 00:16 Not Reportable 11/23/18 00:16 Not Reportable 11/23/18 00:16 Not Reportable 11/23/18 00:16 Not Reportable 11/23/18 00:16 Not Reportable 11/23/18 00:16 Not Reportable 11/23/18 00:16 Not Reportable 11/23/18 00:16 Not Reportable 11/23/18 00:16 Not Reportable 11/23/18 00:16 Not Reportable 11/23/18 00:16 Acanthocytes (Spur) Not Reportable 11/23/18 00:16 Rouleaux Not Reportable 11/23/18 00:16 Not Reportable 11/23/18 00:16 Not Reportable 11/23/18 00:16 Not Reportable 11/23/18 00:16 Not Reportable 11/23/18 00:16 Hem Pathologist Commnt No 11/23/18 00:16 PT 11.6 Sec. (12.2-14.9) L 11/23/18 00:16 INR 0.87 (0.87-1.13) 11/23/18 00:16 APTT 21.9 Sec. (24.2-36.6) L 11/23/18 00:16 16.0 Sec. (15.1-19.6) 11/23/18 00:16 Sodium 134 mmol/L (137-145) L 11/23/18 00:16 Potassium 3.9 mmol/L (3.6-5.0) 11/23/18 00:16 Chloride 101.1 mmol/L (98-107) 11/23/18 00:16 Carbon Dioxide 21 mmol/L (22-30) L 11/23/18 00:16 16 mmol/L 11/23/18 00:16 BUN 14 mg/dL (7-17) 11/23/18 00:16 0.7 mg/dL (0.7-1.2) 11/23/18 00:16 Estimated GFR > 60 ml/min 11/23/18 00:16 20 % 11/23/18 00:16 Glucose 348 mg/dL (65-100) H 11/23/18 00:16 Calcium 8.9 mg/dL (8.4-10.2) 11/23/18 00:16 < 0.010 ng/mL (0.00-0.029) 11/23/18 03:13 Assessment and Plan Assessment and plan: I saw and evaluated the patient. I agree with the findings and the plan of care as documented in the Nurse Practitioner's note, with the followingcorrection, d/c anti-hypertensives, IV hydralazine as needed for blood pressure control, add echo, neuro checks.
[2018-11-23] MEDS ORDERED: D50W (25GM) Syringe IV PRN (03:55)
[2018-11-23] MEDS ORDERED: APRESOLINE IV PRN (04:08)
--- NOTE | 2018-11-23 06:41 | Event Note ---
Date: 11/23/18 Received call from nurse stating that patient refused insulin because it makes her bradycardic and hypotensive. Patient has a tumor on the pancreas. Recurrent patient causes her blood sugar to be elevated at times. Blood glucose this morning 273.
--- NOTE | 2018-11-23 08:08 | Progress Note ---
Subjective Date of service: 11/23/18 Interval history: I have dictated a full note on this patient... prior hx of seizures and stroke did note that hse has been on fentanyl suspect prior stroke and perhaps new onset of TIA vs seizure Objective - Vital Sign Vital Signs - 12hr 11/23/18 11/23/18 11/23/18 00:16 00:21 00:40 Temperature Pulse Rate 87 87 Respiratory 21 12 Rate Blood Pressure 145/100 Blood Pressure 145/100 [Right] O2 Sat by Pulse 97 97 97 Oximetry 11/23/18 11/23/18 11/23/18 00:46 01:00 01:10 Temperature 97.9 F Pulse Rate Respiratory Rate Blood Pressure 145/100 145/100 Blood Pressure [Right] O2 Sat by Pulse 97 96 Oximetry 11/23/18 11/23/18 11/23/18 01:16 01:30 01:45 Temperature Pulse Rate 81 Respiratory 27 H Rate Blood Pressure 145/100 145/100 143/91 Blood Pressure [Right] O2 Sat by Pulse 97 98 97 Oximetry 11/23/18 11/23/18 11/23/18 02:00 02:11 02:15 Temperature Pulse Rate 71 83 79 Respiratory 12 18 18 Rate Blood Pressure 143/91 140/93 Blood Pressure 149/96 [Right] O2 Sat by Pulse 99 97 98 Oximetry 11/23/18 11/23/18 11/23/18 02:30 02:45 03:00 Temperature Pulse Rate 84 77 75 Respiratory 16 17 21 Rate Blood Pressure 140/93 130/99 130/99 Blood Pressure [Right] O2 Sat by Pulse 93 96 96 Oximetry 11/23/18 11/23/18 11/23/18 03:16 03:32 03:46 Temperature Pulse Rate 78 72 Respiratory 23 20 Rate Blood Pressure 138/91 138/91 144/81 Blood Pressure [Right] O2 Sat by Pulse 96 100 98 Oximetry 11/23/18 11/23/18 11/23/18 04:05 04:16 04:20 Temperature Pulse Rate 74 66 68 Respiratory 17 17 17 Rate Blood Pressure 138/91 144/93 144/93 Blood Pressure [Right] O2 Sat by Pulse 98 99 99 Oximetry 11/23/18 11/23/18 11/23/18 04:30 04:46 05:00 Temperature Pulse Rate 74 76 76 Respiratory 13 18 16 Rate Blood Pressure 144/93 144/93 128/83 Blood Pressure [Right] O2 Sat by Pulse 98 96 96 Oximetry 11/23/18 11/23/18 11/23/18 05:15 05:44 07:59 Temperature 98.1 F Pulse Rate 82 75 76 Respiratory 20 16 18 Rate Blood Pressure 128/83 135/89 139/95 Blood Pressure [Right] O2 Sat by Pulse 99 100 Oximetry - Laboratory Findings CBC and BMP: 11/23/18 00:16 11/23/18 00:16 Abnormal Lab Findings: Abnormal Labs 11/23/18 11/23/18 11/23/18 00:16 00:16 00:16 Seg Neuts % (Manual) 34.0 L Lymphocytes % (Manual) 61.0 H PT 11.6 L APTT 21.9 L Sodium 134 L Carbon Dioxide 21 L Glucose 348 H POC Glucose 11/23/18 06:15 Seg Neuts % (Manual) Lymphocytes % (Manual) PT APTT Sodium Carbon Dioxide Glucose POC Glucose 273 H
[2018-11-23] MEDS ORDERED: ZESTRIL PO SCH (10:00)
[2018-11-23] MEDS ORDERED: TAMOXIFEN CITRATE PO SCH (10:00)
[2018-11-23] MEDS ORDERED: NON-FORMULARY (Cetirizine Hcl [Zyrtec 10mg Cap] 10 MG) PO SCH (10:00)
[2018-11-23] MEDS ORDERED: LOVENOX SUB-Q SCH ×2 (10:00→22:00)
[2018-11-23] MEDS ORDERED: INDERAL PO SCH (10:00)
--- NOTE | 2018-11-23 10:27 | Consultation ---
HISTORY OF PRESENT ILLNESS: This is a 43-year-old black female who presents with a prior history of right-sided weakness, had undergone treatment for stroke. She has a prior history of diabetes, hypertension, breast cancer and has had seizures. She presents with left-sided numbness of the face, difficulty with speech. She is also having pain in her chest, which was squeezing in nature. She presented to the hospital. She had been taking gabapentin 1200 mg b.i.d., hydrocodone 1 p.o. b.i.d. and fentanyl 75 mcg patches. SHE HAS MULTIPLE ALLERGIES. Please review the list, which is quite extensive and has been taking Vimpat 50 mg b.i.d. for seizures. When she presented to the hospital, she had a blood pressure of 145/100. SOCIAL HISTORY: She does not drink. She does not smoke. When the patient was initially presented to the hospital, she had undergone tele-neurology workup. TPA was ruled out. She was outside the window. PHYSICAL EXAMINATION: VITAL SIGNS: Pulse rate was 87, respirations 12, blood pressure 145/100. O2 sats were 97%. GENERAL: She has minimal left-sided facial weakness. She has a slight squint involving the left eye. Ocular movements are full. Cranial nerves are intact. No drift to extremities is present. NECK: Supple. NEUROLOGIC: No tremors or asterixis. No speech difficulty is noted. She was fully oriented and appropriate. The motor tone was symmetrical. Face is only minimally affected on the left side related to a squint involving the left eye; otherwise, facial movements are normal on the left including raising the eyebrows, shutting the eyes and moving the lower left face. The patient has good writing ability with her right hand. I observed her actually to be writing an attached ____ list. She has no problems reading the list or handling a pen with her right hand at this point. I do not notice any seizure activity. IMPRESSION: 1. Transient ischemic attack versus stroke, right cerebral hemisphere. 2. Prior history of stroke, left cerebral hemisphere. 3. History of seizures. 4. History of pain syndrome, on fentanyl, hydrocodone and Neurontin in fairly modest doses. Recommend to get an MRI scan of the brain. Chest pain workup is pending. JOB# [id number] [facility]/PR[facility]ENC[facility]
[2018-11-23] MEDS: HumuLIN R SUB-Q SCH ×4 (10:46→22:13)
[2018-11-23] MEDS: CLARITIN PO SCH (10:56)
[2018-11-23] MEDS: SINGULAIR PO SCH (10:56)
--- NOTE | 2018-11-23 11:02 | Magnetic Resonance Report ---
MRA HEAD WITHOUT CONTRAST HISTORY: Cerebrovascular accident. Left-sided weakness. COMPARISON: none TECHNIQUE: Routine MRA of the head performed. 3-D/MIP reformats postprocessed. CONTRAST: none FINDINGS: MRA HEAD: OVERVIEW: There is no evidence of intracranial stenosis or large vessel occlusion. There is no eviden ce of aneurysm or other vascular malformation. Intracranial vertebral arteries: No significant abnormality. Basilar artery: No significant abnormality. Posterior cerebral arteries: No significant abnormality. Intracranial internal carotid arteries: No significant abnormality. Anterior cerebral arteries: No significant abnormality. Middle cerebral arteries: No significant abnormality. IMPRESSION: 1. No abnormality on MRA head. Signer Name: Dustin Avina MD Signed: 11/23/2018 10:57 AM Workstation Name: [id number]
--- NOTE | 2018-11-23 11:06 | Magnetic Resonance Report ---
MRI BRAIN 11/23/2018 INDICATION / CLINICAL INFORMATION: stroke. Left-sided weakness. TECHNIQUE: Multiplanar, multisequence MR images of the brain were obtained. COMPARISON: CT head 11/23/2018 FINDINGS: BRAIN / INTRACRANIAL CONTENTS: Unenhanced MR images of the brain demonstrate no evidence of acute int racranial abnormality. Ventricles and sulci are normal in size and shape. There is no evidence of ischemic injury, demyelination, hemorrhage, or mass. There are no abnormal ex tra-axial fluid collections. Incidental note is made of a partially empty sella, a normal variant. EXTRACRANIAL: Unremarkable CRANIOCERVICAL JUNCTION: No significant abnormality. VASCULAR FLOW-VOIDS: No significant abnormality. IMPRESSION: Negative unenhanced MRI of the brain. Signer Name: Seamus Machado MD Signed: 11/23/2018 11:02 AM Workstation Name: [id number]
[2018-11-23] MEDS ORDERED: NON-FORMULARY (Alprazolam [Xanax Tab] 2 MG) PO PRN (13:02)
--- NOTE | 2018-11-23 13:02 | Event Note ---
Date: 11/23/18 Patient with left sided numbness. I have seen and examined her. MRI Brain negative for stroke. To r/o seizures as per Neurologist. EEG ordered.
[2018-11-23] MEDS ORDERED: NORCO 5/325 PO PRN (13:12)
[2018-11-23] MEDS ORDERED: XANAX PO PRN (13:13)
[2018-11-23] MEDS ORDERED: TOPAMAX 200 MG PO SCH (13:15)
[2018-11-23 14:35] LABS: Chol/HDL Ratio 3.9 %
[2018-11-23] MEDS: TOPAMAX PO SCH ×2 (16:42→22:07)
[2018-11-23] MEDS: ZESTRIL PO SCH (22:13)
[2018-11-24 06:54] LABS: Hematocrit 42.7 % (30.3-42.9); Hemoglobin 13.7 gm/dl (10.1-14.3); Mean Corpuscular HGB Conc 32 % (30-34); Mean Corpuscular Volume 85 fl (79-97); Platelet Count 274 K/mm3 (140-440); Red Blood Count 5.03 M/mm3 (3.65-5.03); Red Cell Distribution Width 13.7 % (13.2-15.2)
[2018-11-24] MEDS: HumuLIN R SUB-Q SCH ×2 (07:30→15:21)
[2018-11-24 07:47] LABS: BUN/Creatinine Ratio 18; Blood Urea Nitrogen 14 mg/dL (7-17); Calcium 9.2 mg/dL (8.4-10.2); Hemolysis Index 80
--- NOTE | 2018-11-24 08:18 | Progress Note ---
Subjective Date of service: 11/24/18 Interval history: I personally reviewed the MRA/ MRI as well as the reports agree these are essentially normal with no focal abnormalities suspect TIA related to small vessel dises she can be treated medically for this may be discharged and follow up in the office Objective - Vital Sign Vital Signs - 12hr 11/23/18 11/24/18 11/24/18 23:51 03:34 04:00 Temperature 97.7 F 98.3 F Pulse Rate 79 69 74 Respiratory 16 16 Rate Blood Pressure 114/67 93/57 O2 Sat by Pulse 90 96 Oximetry - Laboratory Findings CBC and BMP: 11/24/18 05:55 11/24/18 05:55 Abnormal Lab Findings: Abnormal Labs 11/23/18 11/23/18 11/23/18 00:16 00:16 00:16 MCH Seg Neuts % (Manual) 34.0 L Lymphocytes % (Manual) 61.0 H PT 11.6 L APTT 21.9 L Sodium 134 L Carbon Dioxide 21 L Glucose 348 H POC Glucose Hemoglobin A1c Triglycerides 11/23/18 11/23/18 11/23/18 06:15 11:47 13:22 MCH Seg Neuts % (Manual) Lymphocytes % (Manual) PT APTT Sodium Carbon Dioxide Glucose POC Glucose 273 H 309 H Hemoglobin A1c 14.1 H Triglycerides 11/23/18 11/23/18 11/23/18 13:22 16:28 20:58 MCH Seg Neuts % (Manual) Lymphocytes % (Manual) PT APTT Sodium Carbon Dioxide Glucose POC Glucose 319 H 424 H Hemoglobin A1c Triglycerides 152 H 11/24/18 11/24/18 05:55 05:55 MCH 27 L Seg Neuts % (Manual) Lymphocytes % (Manual) PT APTT Sodium 135 L Carbon Dioxide 18 L Glucose 399 H POC Glucose Hemoglobin A1c Triglycerides
[2018-11-24] MEDS ORDERED: ASPIRIN PO SCH (10:00)
[2018-11-24] MEDS: TOPAMAX PO SCH (10:05)
[2018-11-24] MEDS: SINGULAIR PO SCH (10:05)
[2018-11-24] MEDS: CLARITIN PO SCH (10:05)
--- NOTE | 2018-11-24 12:55 | Discharge Summary ---
Providers - Providers Date of Admission: 11/23/18 02:36 Date of discharge: 11/24/18 Attending physician: CHETAN CLARK 11/23/18 02:50 Occupational Therapy Evaluate and Treat [CONS] Routine Comment: Reason For Exam: Neuro deficits Physical Therapy Evaluation and Treat [CONS] Routine Comment: Reason For Exam: Neuro deficits 11/23/18 02:59 Consult to Physician [CONS] Routine Comment: Consulting Provider: JULIANNE YANG Physician Instructions: Reason For Exam: ?? cva in ot with hx of cva and mi s/p stent 11/23/18 03:55 Consult to Dietitian/Nutrition [CONS] Routine Physician Instructions: Reason For Exam: Reason for Consult: Diet education Hospitalization Condition: Stable Pertinent studies: cxr head CT brain mRi/MRA 2d echo Hospital course: 43-year-old -[place] female with history of seizure disorder, hypertension, diastolic heart failure, coronary artery disease, NE 2, CVA with right-sided deficits, asthma, DM 2, breast cancer s/p vasectomy and breast reconstruction who presents to [facility] ED with complaints of numbness, left-sided weakness for approximately 4 hours on Friday afternoon. Telemetry neurologist consulted and ED. patient did not receive TPA because she was outside window of treatment. CT was unrevealing for any acute intracranial abnormality. MRI brain showed no new CVA. Neurology recommended medical mx and outpt follow up. Patient was then discharged home in stable condition with outpt followup. Discharge diagnosis; TIA new onset DM type 2, uncontrolled, refused insulin History CVA Seizure disorder Diastolic heart failure Coronary artery disease History of NE 2 History of breast cancer with left breast mastectomy and reconstruction Asthma History of tumor of pancreas Disposition: DC-01 TO HOME OR SELFCARE Time spent for discharge: 34 minutes Core Measure Documentation - Palliative Care Palliative Care/ Comfort Measures: Not Applicable - Core Measures Any of the following diagnoses?: none Exam - Physical Exam Narrative exam: General appearance: Present: No acute distress, resting but easily arouses, oriented 3 - EENT Eyes: Present: PERRL, EOM intact ENT: hearing intact, normal dentition - Neck Neck: Present: supple, normal ROM - Respiratory Respiratory effort: Non-labored Respiratory: Clear throughout - Cardiovascular Heart rate:78 (bpm) Rhythm: Sinus rhythm Heart Sounds: Present: S1 & S2. Absent: rub, click - Extremities Extremities: no ischemia, pulses intact, - Peripheral Assessment Peripheral Pulses: within normal limits - Abdominal General gastrointestinal: soft, non-tender, normal bowel sounds - Integumentary Integumentary: Present: warm, dry - Musculoskeletal Musculoskeletal: Slight right-sided deficit from previous CVA, at baseline ambulates with cane for long distance walking -Neurological Neurological: CN II-XII intact - Psychiatric Psychiatric: cooperative - Constitutional Vitals: Temp Pulse Resp BP Pulse Ox 98.2 F 80 14 96/60 98 11/24/18 07:27 11/24/18 07:27 11/24/18 07:27 11/24/18 07:27 11/24/18 07:27 Plan Activity: fall precautions Weight Bearing Status: Weight Bear as Tolerated Diet: diabetic Follow up with: EDITA URBINA [Other] - 7 Days Forms: Work/School Release Form Prescriptions: Aspirin [Aspirin BABY CHEW TAB] 81 mg PO QDAY #30 tab.chew Metformin HCl [metFORMIN] 1,000 mg PO BID #60 tablet
[2018-11-24 13:00] VITALS: BP 99/59
[2018-11-24] MEDS: ZESTRIL PO SCH (15:26)
== END 2018-11-24 14:30 | disposition home or self-care (01) | DRG 69 ==
LOC: ED 23:55 → 4A 11-23 02:36
PROVIDERS: ADMIT Internal Medicine; ATTEND Internal Medicine
DX: G45.9 Transient cerebral ischemic attack, unspecified (principal); I50.32 Chronic diastolic (congestive) heart failure; I69.351 Hemiplegia and hemiparesis following cerebral infarction affecting right dominant side; R07.9 Chest pain, unspecified; G40.909 Epilepsy, unspecified, not intractable, without status epilepticus; J45.909 Unspecified asthma, uncomplicated; I11.0 Hypertensive heart disease with heart failure; R29.701 NIHSS score 1; E11.9 Type 2 diabetes mellitus without complications; I25.10 Atherosclerotic heart disease of native coronary artery without angina pectoris; I25.2 Old myocardial infarction; Z90.49 Acquired absence of other specified parts of digestive tract; Z90.710 Acquired absence of both cervix and uterus; Z85.3 Personal history of malignant neoplasm of breast; Z91.030 Bee allergy status; Z91.041 Radiographic dye allergy status; Z91.040 Latex allergy status; Z88.5 Allergy status to narcotic agent; Z91.010 Allergy to peanuts; Z88.0 Allergy status to penicillin; Z88.8 Allergy status to other drugs, medicaments and biological substances; Z91.018 Allergy to other foods; Z90.12 Acquired absence of left breast and nipple
CPT/HCPCS: 36415; 70450; 70544; 70551; 71045; 80048; 80061; 82962; 83036; 84484; 85007; 85025; 85027; 85610; 85670; 85730; 93005; 93010; 93306; 95819; G0378; A9270-GY; J1650; J1815

== ENCOUNTER 2018-12-21 19:41 | Emergency (ER) | payer MEDICARE ==
[2018-12-21 20:12] VITALS: BP 142/92
[2018-12-21 21:33] LABS: Bacteria,Urine 1+ /HPF (Negative); Bilirubin,Urine NEG (Negative); Blood,Urine NEG (Negative); Color,Urine Yellow (Yellow); Mucus,Urine 3+ /HPF; Protein,Urine <15 mg/dL mg/dL (Negative); Urobilinogen,Urine < 2.0 mg/dL (<2.0)
[2018-12-21] MEDS ORDERED: TYLENOL PO ONE (21:38)
[2018-12-21] MEDS ORDERED: LEVAQUIN PO ONE (21:39)
[2018-12-21 21:56] LABS: Hematocrit 39.5 % (30.3-42.9); Hemoglobin 13.2 gm/dl (10.1-14.3); Mean Corpuscular HGB Conc 33 % (30-34); Mean Corpuscular Volume 83 fl (79-97); Platelet Count 274 K/mm3 (140-440); Red Blood Count 4.79 M/mm3 (3.65-5.03); Red Cell Distribution Width 13.2 % (13.2-15.2)
[2018-12-21 22:19] LABS: Alanine Aminotransferase 12 units/L (7-56); Albumin 4.1 g/dL (3.9-5); BUN/Creatinine Ratio 13; Blood Urea Nitrogen 8 mg/dL (7-17); Calcium 8.8 mg/dL (8.4-10.2); Hemolysis Index 10
[2018-12-21 22:29] LABS: RBC Morphology Normal; Total Cells Counted 100
--- NOTE | 2018-12-21 22:36 | Emergency Department Report ---
ED General Adult HPI - General Chief complaint: Pain General Stated complaint: BOTH ARMS/LEGS AND LOWER BACK PAIN/SOB Time Seen by Provider: 12/21/18 20:11 Source: patient Mode of arrival: Ambulatory Limitations: No Limitations - History of Present Illness Initial comments: Patient is a 43-year-old -[place] female with a history of chronic pancr eatic cancer and breast cancer in remission, chronic pain, chronic hyperglycemia and hypertension who presents with a complaint of acute onset of diffuse body aches and pains and muscle spasms back and upper extremities for the last 3 days. Patient states that the pain is intermittent and gets worse with any movement. Patient denies shortness of breath, chest pain, fever, chills, cough, abdominal pain, dysuria, urinary frequency and urgency, nausea, vomiting, diarrhea, nasal and sinus congestion, headache, dizziness or heavy lifting and traumatic injury. MD Complaint: Body aches and pains; Muscle spasms of upper and lower extremities -: Sudden, days(s) (3) Location: back, upper extremity, lower extremity Radiation: back, neck, extremity Severity scale (0 -10): 3 Quality: aching, sharp Consistency: intermittent Improves with: none Worsens with: movement Associated Symptoms: denies other symptoms. denies: confusion, chest pain, cough, diaphoresis, fever/chills, headaches, loss of appetite, malaise, nausea/vomiting, seizure, shortness of breath, syncope, weakness Treatments Prior to Arrival: none - Related Data Home Medications Medication Instructions Recorded Confirmed Last Taken ALPRAZolam [Xanax TAB] 2 mg PO TID PRN 11/23/18 11/23/18 11/22/18 AtorvaSTATin [Lipitor] 10 mg PO QHS 11/23/18 11/23/18 11/22/18 Cetirizine HCl [ZyrTEC 10mg cap] 10 mg PO DAILY 11/23/18 11/23/18 11/22/18 LORazepam [Ativan] 2 mg PO Q8HR PRN 11/23/18 11/23/18 11/22/18 Propranolol [Inderal] 20 mg PO BID 11/23/18 11/23/18 11/22/18 Tamoxifen Citrate 25 mg PO BID 11/23/18 11/23/18 11/22/18 Topamax 200 mg PO BID 11/23/18 11/23/18 Unknown Previous Rx's Medication Instructions Recorded Last Taken Type Lisinopril [Prinivil] 10 mg PO QDAY #30 tablet 05/21/17 11/22/18 Rx Magnesium Oxide [Mag-Oxide 200 mg PO DAILY #30 tablet 05/21/17 11/22/18 Rx Magnesium] Montelukast [Singulair] 10 mg PO DAILY #30 tablet 05/21/17 11/22/18 Rx HYDROcodone/APAP 5-325 [[place]ch[place] 1 each PO Q6HR PRN #12 tablet 09/29/18 11/22/18 Rx 5-325 mg TAB] Aspirin [Aspirin BABY CHEW TAB] 81 mg PO QDAY #30 tab.chew 11/24/18 Unknown Rx Metformin HCl [metFORMIN] 1,000 mg PO BID #60 tablet 11/24/18 Unknown Rx levoFLOXacin [Levaquin TAB] 500 mg PO QDAY #10 tablet 12/21/18 Unknown Rx methOCARBAMOL [Robaxin TAB] 750 mg PO Q8H PRN #24 tablet 12/21/18 Unknown Rx Allergies Allergy/AdvReac Type Severity Reaction Status Date / Time albuterol Allergy Anaphylaxis Verified 09/29/18 11:04 aripiprazole [From Abilify] Allergy Anaphylaxis Verified 09/29/18 11:04 bee venom protein (honey bee) Allergy Anaphylaxis Verified 09/29/18 11:04 black pepper Allergy Anaphylaxis Verified 09/29/18 11:04 cocoa butter Allergy Anaphylaxis Verified 09/29/18 11:04 coconut Allergy Anaphylaxis Verified 09/29/18 11:04 Iodinated Contrast- Oral and Allergy Anaphylaxis Verified 12/21/18 20:03 IV Dye iodine Allergy Anaphylaxis Verified 09/29/18 11:04 ketorolac [From Toradol] Allergy Anaphylaxis Verified 09/29/18 11:04 latex Allergy Anaphylaxis Verified 09/29/18 11:04 lidocaine Allergy Anaphylaxis Verified 09/29/18 11:04 morphine Allergy Anaphylaxis Verified 09/29/18 11:04 nalbuphine [From Nubain] Allergy Anaphylaxis Verified 09/29/18 11:04 onion Allergy Anaphylaxis Verified 09/29/18 11:04 peanut Allergy Anaphylaxis Verified 09/29/18 11:04 Penicillins Allergy Anaphylaxis Verified 09/29/18 11:04 pregabalin [From Lyrica] Allergy Anaphylaxis Verified 09/29/18 11:04 procaine [From Novocain] Allergy Anaphylaxis Verified 09/29/18 11:04 sulfamethoxazole Allergy Anaphylaxis Verified 09/29/18 11:04 [From Bactrim] tramadol Allergy Anaphylaxis Verified 09/29/18 11:04 trimethoprim [From Bactrim] Allergy Anaphylaxis Verified 09/29/18 11:04 watermelon Allergy Anaphylaxis Verified 09/29/18 11:04 pepperoni Allergy Anaphylaxis Uncoded 09/29/18 11:04 salami Allergy Anaphylaxis Uncoded 09/29/18 11:04 ED Review of Systems ROS: Stated complaint: BOTH ARMS/LEGS AND LOWER BACK PAIN/SOB Other details as noted in HPI Constitutional: denies: chills, fever Eyes: denies: eye pain, eye discharge, vision change ENT: denies: ear pain, throat pain Respiratory: denies: cough, shortness of breath, wheezing Cardiovascular: denies: chest pain, palpitations, dyspnea on exertion, syncope Endocrine: no symptoms reported Gastrointestinal: denies: abdominal pain, nausea, vomiting, diarrhea, hematochezia Genitourinary: denies: urgency, dysuria, frequency, hematuria, discharge, abnormal menses, dyspareunia Musculoskeletal: back pain, arthralgia, myalgia. denies: joint swelling Skin: denies: rash, lesions Neurological: denies: headache, weakness, paresthesias Psychiatric: denies: anxiety, depression Hematological/Lymphatic: denies: easy bleeding, easy bruising ED Past Medical Hx - Past Medical History Previous Medical History?: Yes Hx Hypertension: Yes Hx CVA: Yes (old weakness to right side) Hx Heart Attack/AMI: Yes (x 2) Hx Congestive Heart Failure: Yes Hx Diabetes: Yes Hx of Cancer: Yes (Left breast and stomach) Hx Seizures: Yes Hx Asthma: Yes Additional medical history: tumor on pancreas - Surgical History Past Surgical History?: Yes Hx Cholecystectomy: Yes Hx Breast Surgery: Yes (left breast masectomy and reconstruction) Additional Surgical History: lymph nodes removed from left side. hysterectomy Heart Cath with no stents placed - Social History Smoking Status: Never Smoker Substance Use Type: Alcohol - Medications Home Medications: Home Medications Medication Instructions Recorded Confirmed Last Taken Type Lisinopril [Prinivil] 10 mg PO QDAY #30 tablet 05/21/17 11/23/18 11/22/18 Rx Magnesium Oxide [Mag-Oxide 200 mg PO DAILY #30 tablet 05/21/17 11/23/18 11/22/18 Rx Magnesium] Montelukast [Singulair] 10 mg PO DAILY #30 tablet 05/21/17 11/23/18 11/22/18 Rx HYDROcodone/APAP 5-325 [[place] 1 each PO Q6HR PRN #12 tablet 09/29/18 11/23/18 11/22/18 Rx 5-325 mg TAB] ALPRAZolam [Xanax TAB] 2 mg PO TID PRN 11/23/18 11/23/18 11/22/18 History AtorvaSTATin [Lipitor] 10 mg PO QHS 11/23/18 11/23/18 11/22/18 History Cetirizine HCl [ZyrTEC 10mg cap] 10 mg PO DAILY 11/23/18 11/23/18 11/22/18 History LORazepam [Ativan] 2 mg PO Q8HR PRN 11/23/18 11/23/18 11/22/18 History Propranolol [Inderal] 20 mg PO BID 11/23/18 11/23/18 11/22/18 History Tamoxifen Citrate 25 mg PO BID 11/23/18 11/23/18 11/22/18 History Topamax 200 mg PO BID 11/23/18 11/23/18 Unknown History Aspirin [Aspirin BABY CHEW TAB] 81 mg PO QDAY #30 tab.chew 11/24/18 Unknown Rx Metformin HCl [metFORMIN] 1,000 mg PO BID #60 tablet 11/24/18 Unknown Rx levoFLOXacin [Levaquin TAB] 500 mg PO QDAY #10 tablet 12/21/18 Unknown Rx methOCARBAMOL [Robaxin TAB] 750 mg PO Q8H PRN #24 tablet 12/21/18 Unknown Rx ED Physical Exam - General Limitations: No Limitations General appearance: alert, in no apparent distress - Head Head exam: Present: atraumatic, normocephalic, normal inspection - Eye Eye exam: Present: normal appearance, PERRL, EOMI Pupils: Present: normal accommodation - ENT ENT exam: Present: normal exam, normal orophraynx, mucous membranes moist, TM's normal bilaterally, normal external ear exam - Neck Neck exam: Present: normal inspection, full ROM. Absent: tenderness, men ingismus, lymphadenopathy, thyromegaly - Respiratory Respiratory exam: Present: normal lung sounds bilaterally. Absent: respiratory distress, wheezes, rales, stridor, chest wall tenderness, accessory muscle use, decreased breath sounds, prolonged expiratory - Cardiovascular Cardiovascular Exam: Present: regular rate, normal rhythm, normal heart sounds. Absent: systolic murmur, diastolic murmur, rubs, gallop - GI/Abdominal GI/Abdominal exam: Present: soft, normal bowel sounds. Absent: tenderness, guarding, hyperactive bowel sounds, hypoactive bowel sounds - Rectal Rectal exam: Present: deferred - Extremities Exam Extremities exam: Present: normal inspection, full ROM, normal capillary refill. Absent: tenderness, pedal edema, joint swelling - Back Exam Back exam: Present: normal inspection, full ROM, tenderness, muscle spasm, paraspinal tenderness - Neurological Exam Neurological exam: Present: alert, oriented X3, CN II-XII intact, normal gait, reflexes normal - Psychiatric Psychiatric exam: Present: normal affect, normal mood - Skin Skin exam: Present: warm, dry, intact, normal color. Absent: rash ED Course Vital Signs 12/21/18 20:11 Temperature 97.9 F Pulse Rate 84 Respiratory 18 Rate Blood Pressure 142/92 O2 Sat by Pulse 99 Oximetry - Reevaluation(s) Reevaluation #1: 12/21/18 22:36 This is a 43-year-old female with multiple past medical history who presented to the ED with diffuse body aches and muscle spasms for 3 days. In the ED, the patient is alert and oriented 3 and is not in distress. Patient was treated for pain in the ED with Tylenol. Lab test results were reviewed and unremarkable acute urinary tract infection, and hyperglycemia which the patient states is chronic and baseline although she does not take any insulin because her chronic pancreatic cancer background. Patient also stated that she has had adverse reactions previously on insulin or related medications for hyperglyce wes. Patient was also treated in the ED with oral Levaquin 500 mg 1. Patient was discharged home on muscle relaxants and advised to take Tylenol as needed for pain and also given a prescription for antibiotics for UTI. Patient was advised to follow-up with her primary care physician in 5-7 days for reevaluation or return to the ED immediately if symptoms get worse. ED Medical Decision Making - Lab Data Result diagrams: 12/21/18 21:40 12/21/18 21:40 - Medical Decision Making This is a 43-year-old female with multiple past medical history who presented to the ED with diffuse body aches and muscle spasms for 3 days. In the ED, the patient is alert and oriented 3 and is not in distress. Patient was treated for pain in the ED with Tylenol. Lab test results were reviewed and unremarkable acute urinary tract infection, and hyperglycemia which the patient states is chronic and baseline although she does not take any insulin because her chronic pancreatic cancer background. Patient also stated that she has had adverse reactions previously on insulin or related medications for hyperglyce wes. Patient was also treated in the ED with oral Levaquin 500 mg 1. Patient was discharged home on muscle relaxants and advised to take Tylenol as needed for pain and also given a prescription for antibiotics for UTI. Patient was advised to follow-up with her primary care physician in 5-7 days for reevaluation or return to the ED immediately if symptoms get worse. - Differential Diagnosis Muscle spasms; Muscle strains; Acute UTI; Chronic hyperglycemia Critical care attestation.: If time is entered above; I have spent that time in minutes in the direct care of this critically ill patient, excluding procedure time. ED Disposition Clinical Impression: Muscle spasm, Muscle strain, Acute urinary tract infection, Chronic hyperglycemia Chronic pain Qualifiers: Chronic pain type: other chronic pain Qualified Code(s): G89.29 - Other chronic pain Disposition: DC- TO HOME OR SELFCARE Is pt being admited?: No Does the pt Need Aspirin: No Condition: Stable Instructions: Muscle Spasm (ED), Chronic Pain (ED), Urinary Tract Infection in Women (ED), Hyperglycemia, Non-Diabetic (ED) Additional Instructions: Take medications with food, drink plenty of fluids and follow-up with your primary care physician in 5-7 days for reevaluation. Return to the emergency Department immediately if symptoms get worse. Prescriptions: levoFLOXacin [Levaquin TAB] 500 mg PO QDAY #10 tablet methOCARBAMOL [Robaxin TAB] 750 mg PO Q8H PRN #24 tablet PRN Reason: Spasms Referrals: PALOMA WEIR MD [Primary Care Provider] - 3-5 Days Time of Disposition: 22:42 Print Language: WELSH
--- NOTE | 2018-12-21 23:22 | Event Note ---
ED Screening Note Date of service: 12/21/18 Time: 20:11 ED Screening Note: 43 y/o female comes in for generalized pain that feels sharp and tingling times 1 week. This initial assessment/diagnostic orders/clinical plan/treatment(s) is/are subject to change based on patients health status, clinical progression and re- assessment by fellow clinical providers in the ED. Further treatment and workup at subsequent clinical providers discretion. Patient/guardian urged not to elope from the ED as their condition may be serious if not clinically assessed and managed. Initial orders include:
== END 2018-12-21 23:06 | disposition home or self-care (01) ==
LOC: ED 19:41
DX: S39.012A Strain of muscle, fascia and tendon of lower back, initial encounter (principal); E11.65 Type 2 diabetes mellitus with hyperglycemia; N39.0 Urinary tract infection, site not specified; G89.29 Other chronic pain; I11.0 Hypertensive heart disease with heart failure; I50.9 Heart failure, unspecified; I25.2 Old myocardial infarction; J45.909 Unspecified asthma, uncomplicated; Z90.710 Acquired absence of both cervix and uterus; Z90.49 Acquired absence of other specified parts of digestive tract; Z98.890 Other specified postprocedural states; Z79.899 Other long term (current) drug therapy; Z91.018 Allergy to other foods; Z91.030 Bee allergy status; Z88.6 Allergy status to analgesic agent; Z85.07 Personal history of malignant neoplasm of pancreas; X58.XXXA Exposure to other specified factors, initial encounter; Y93.89 Activity, other specified; Y92.89 Other specified places as the place of occurrence of the external cause; Y99.8 Other external cause status
CPT/HCPCS: 36415; 80053; 81001; 85007; 85025

== ENCOUNTER 2019-01-03 07:05 | Emergency (ER) | payer MEDICARE ==
[2019-01-03 07:15] VITALS: BP 144/92
--- NOTE | 2019-01-03 07:45 | Emergency Department Report ---
ED Lower Extremity HPI - General Chief Complaint: Extremity Injury, Lower Stated Complaint: LT ANKLE PAIN Time Seen by Provider: 01/03/19 07:42 Source: patient, family Mode of arrival: Ambulatory Limitations: No Limitations - History of Present Illness Initial Comments: This is a 43-year-old female here reports that she twisted her left ankle and foot last night and she has pain and swelling. Pain is 8 out of 10 and worse with movements and weightbearing bed rest. She says she placed ice on the area but is not helping. Pain is constant. Denies any numbness or tingling to extremities. Denies any back pain. Denies any head injury. MD Complaint: ankle injury, foot injury -: Last night Injury: Ankle: Left, Foot: Left Type of Injury: inversion Place: home Severity: severe Severity scale (0 -10): 10 Improves With: cold therapy Worsens With: weight bearing, movement, palpation Context: walking Associated Symptoms: swelling, able to partially bear weight. denies: snap/pop sensation, numbness, tingling Treatments Prior to Arrival: cold therapy - Related Data Home Medications Medication Instructions Recorded Confirmed Last Taken ALPRAZolam [Xanax TAB] 2 mg PO TID PRN 11/23/18 11/23/18 11/22/18 AtorvaSTATin [Lipitor] 10 mg PO QHS 11/23/18 11/23/18 11/22/18 Cetirizine HCl [ZyrTEC 10mg cap] 10 mg PO DAILY 11/23/18 11/23/18 11/22/18 LORazepam [Ativan] 2 mg PO Q8HR PRN 11/23/18 11/23/18 11/22/18 Propranolol [Inderal] 20 mg PO BID 11/23/18 11/23/18 11/22/18 Tamoxifen Citrate 25 mg PO BID 11/23/18 11/23/18 11/22/18 Topamax 200 mg PO BID 11/23/18 11/23/18 Unknown Previous Rx's Medication Instructions Recorded Last Taken Type Lisinopril [Prinivil] 10 mg PO QDAY #30 tablet 05/21/17 11/22/18 Rx Magnesium Oxide [Mag-Oxide 200 mg PO DAILY #30 tablet 05/21/17 11/22/18 Rx Magnesium] Montelukast [Singulair] 10 mg PO DAILY #30 tablet 05/21/17 11/22/18 Rx HYDROcodone/APAP 5-325 [[place] 1 each PO Q6HR PRN #12 tablet 09/29/18 11/22/18 Rx 5-325 mg TAB] Aspirin [Aspirin BABY CHEW TAB] 81 mg PO QDAY #30 tab.chew 11/24/18 Unknown Rx Metformin HCl [metFORMIN] 1,000 mg PO BID #60 tablet 11/24/18 Unknown Rx levoFLOXacin [Levaquin TAB] 500 mg PO QDAY #10 tablet 12/21/18 Unknown Rx methOCARBAMOL [Robaxin TAB] 750 mg PO Q8H PRN #24 tablet 12/21/18 Unknown Rx Acetaminophen/Codeine [Tylenol 1 tab PO Q6H PRN #12 tab 01/03/19 Unknown Rx /Codeine # 3 tab] Allergies Allergy/AdvReac Type Severity Reaction Status Date / Time albuterol Allergy Anaphylaxis Verified 09/29/18 11:04 aripiprazole [From Abilify] Allergy Anaphylaxis Verified 09/29/18 11:04 bee venom protein (honey bee) Allergy Anaphylaxis Verified 09/29/18 11:04 black pepper Allergy Anaphylaxis Verified 09/29/18 11:04 cocoa butter Allergy Anaphylaxis Verified 09/29/18 11:04 coconut Allergy Anaphylaxis Verified 09/29/18 11:04 Iodinated Contrast- Oral and Allergy Anaphylaxis Verified 12/21/18 20:03 IV Dye iodine Allergy Anaphylaxis Verified 09/29/18 11:04 ketorolac [From Toradol] Allergy Anaphylaxis Verified 09/29/18 11:04 latex Allergy Anaphylaxis Verified 09/29/18 11:04 lidocaine Allergy Anaphylaxis Verified 09/29/18 11:04 morphine Allergy Anaphylaxis Verified 09/29/18 11:04 nalbuphine [From Nubain] Allergy Anaphylaxis Verified 09/29/18 11:04 onion Allergy Anaphylaxis Verified 09/29/18 11:04 peanut Allergy Anaphylaxis Verified 09/29/18 11:04 Penicillins Allergy Anaphylaxis Verified 09/29/18 11:04 pregabalin [From Lyrica] Allergy Anaphylaxis Verified 09/29/18 11:04 procaine [From Novocain] Allergy Anaphylaxis Verified 09/29/18 11:04 sulfamethoxazole Allergy Anaphylaxis Verified 09/29/18 11:04 [From Bactrim] tramadol Allergy Anaphylaxis Verified 09/29/18 11:04 trimethoprim [From Bactrim] Allergy Anaphylaxis Verified 09/29/18 11:04 watermelon Allergy Anaphylaxis Verified 09/29/18 11:04 pepperoni Allergy Anaphylaxis Uncoded 09/29/18 11:04 salami Allergy Anaphylaxis Uncoded 09/29/18 11:04 ED Review of Systems ROS: Stated complaint: LT ANKLE PAIN Other details as noted in HPI Constitutional: denies: chills, fever Respiratory: denies: cough, SOB with exertion Cardiovascular: denies: chest pain, palpitations, edema, syncope Gastrointestinal: denies: abdominal pain Musculoskeletal: joint swelling, arthralgia. 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 hysterectomy Heart Cath with no stents placed - Family History Family history: hypertension - Social History Smoking Status: Never Smoker Substance Use Type: Alcohol - Medications Home Medications: Home Medications Medication Instructions Recorded Confirmed Last Taken Type Lisinopril [Prinivil] 10 mg PO QDAY #30 tablet 05/21/17 11/23/18 11/22/18 Rx Magnesium Oxide [Mag-Oxide 200 mg PO DAILY #30 tablet 05/21/17 11/23/18 11/22/18 Rx Magnesium] Montelukast [Singulair] 10 mg PO DAILY #30 tablet 05/21/17 11/23/18 11/22/18 Rx HYDROcodone/APAP 5-325 [[place] 1 each PO Q6HR PRN #12 tablet 09/29/18 11/23/18 11/22/18 Rx 5-325 mg TAB] ALPRAZolam [Xanax TAB] 2 mg PO TID PRN 11/23/18 11/23/18 11/22/18 History AtorvaSTATin [Lipitor] 10 mg PO QHS 11/23/18 11/23/18 11/22/18 History Cetirizine HCl [ZyrTEC 10mg cap] 10 mg PO DAILY 11/23/18 11/23/18 11/22/18 History LORazepam [Ativan] 2 mg PO Q8HR PRN 11/23/18 11/23/18 11/22/18 History Propranolol [Inderal] 20 mg PO BID 11/23/18 11/23/18 11/22/18 History Tamoxifen Citrate 25 mg PO BID 11/23/18 11/23/18 11/22/18 History Topamax 200 mg PO BID 11/23/18 11/23/18 Unknown History Aspirin [Aspirin BABY CHEW TAB] 81 mg PO QDAY #30 tab.chew 11/24/18 Unknown Rx Metformin HCl [metFORMIN] 1,000 mg PO BID #60 tablet 11/24/18 Unknown Rx levoFLOXacin [Levaquin TAB] 500 mg PO QDAY #10 tablet 12/21/18 Unknown Rx methOCARBAMOL [Robaxin TAB] 750 mg PO Q8H PRN #24 tablet 12/21/18 Unknown Rx Acetaminophen/Codeine [Tylenol 1 tab PO Q6H PRN #12 tab 01/03/19 Unknown Rx /Codeine # 3 tab] ED Physical Exam - General Limitations: No Limitations General appearance: alert, in no apparent distress - Head Head exam: Present: atraumatic, normocephalic, normal inspection - Eye Eye exam: Present: normal appearance, PERRL, EOMI Pupils: Present: normal accommodation - Neck Neck exam: Present: normal inspection, full ROM, other. Absent: tenderness, lymphadenopathy - Respiratory Respiratory exam: Present: normal lung sounds bilaterally. Absent: respiratory distress, chest wall tenderness - Cardiovascular Cardiovascular Exam: Present: regular rate, normal rhythm, normal heart sounds - GI/Abdominal GI/Abdominal exam: Present: soft, normal bowel sounds. Absent: distended, tenderness - Extremities Exam Extremities exam: Present: tenderness, normal capillary refill, joint swelling. Absent: normal inspection, full ROM, pedal edema, calf tenderness - Expanded Lower Extremity Exam Left Hip exam: Present: normal inspection, full ROM. Absent: tenderness Upper Leg exam: Present: normal inspection, full ROM. Absent: tenderness Knee exam: Present: normal inspection, full ROM. Absent: tenderness, swelling Lower Leg exam: Present: normal inspection, full ROM. Absent: tenderness, swelling, laceration, ecchymosis, erythema, palpable cord, Alireza's sign Ankle exam: Present: tenderness, swelling. Absent: normal inspection, full ROM, abrasion, laceration, ecchymosis, deformity, crepidus, dislocation, erythema Foot/Toe exam: Present: tenderness, swelling. Absent: normal inspection, full ROM, abrasion, laceration, ecchymosis, deformity, crepidus Neuro vascular tendon exam: Present: no vascular compromise. Absent: pulse deficit, abnormal cap refill, motor deficit, sensory deficit, tendon deficit, extremity cold to touch, pallor, abnormal 2-point discrimination, decreased fine/light touch, foot drop, peroneal nerve deficit, significant pain with passive ROM of distal joint Gait: Positive: observed and limited by pain - Back Exam Back exam: Present: normal inspection, full ROM, other (normal exam). Absent: tenderness, CVA tenderness (R), paraspinal tenderness, vertebral tenderness, rash noted - Neurological Exam Neurological exam: Present: alert, oriented X3, normal gait, reflexes normal. Absent: motor sensory deficit - Psychiatric Psychiatric exam: Present: normal affect, normal mood - Skin Skin exam: Present: warm, dry, intact, normal color. Absent: rash ED Course Vital Signs 01/03/19 07:14 Temperature 98.2 F Pulse Rate 75 Respiratory 18 Rate Blood Pressure 144/92 O2 Sat by Pulse 97 Oximetry - Reevaluation(s) Reevaluation #1: 01/03/19 09:26 Patient sister in route to get her. She was given 2 [place] for ankle pain. X- rays negative - Orthopedic Splinting/Casting Injury #1 Side: left Lower Extremity Injury Location: ankle, foot Lower Extremity Immobilizer: Irwin wrap Other Orthopedic Equipment: crutches Additional Comments: Patient with good color movement, sensation and temperature to foot and ankle ED Lower Extremity MDM - Radiology Data Radiology results: report reviewed X-ray of left foot and ankle with negative findings. X-ray dictated by radiologist and reports reviewed by myself. Findings [facility] [address] [place] [address] XRay Report Signed Patient: YAO HAAS MR#: [id number] : 1975 Acct:[id number] Age/Sex: 43 / F ADM Date: 01/03/19 Loc: ED Attending Dr: Ordering Physician: CASSIE KNOX Date of Service: 01/03/19 Procedure(s): XR foot 3+V LT Accession Number(s): [id number] cc: CASSIE KNOX Fluoro Time In Minutes: LEFT FOOT 3 VIEWS INDICATION / CLINICAL INFORMATION: foot injury with pain and swelling. COMPARISON: None available. FINDINGS: Negative. Signer Name: Alvarez Garber MD Signed: 01/03/2019 8:57 AM Workstation Name: [id number] Transcribed By: TM Dictated By: Alvarez Garber MD Electronically Authenticated By: Alvarez Garber MD Signed Date/Time: 01/03/19856 DD/ 4 TD/TT: Findings [facility] [address] [place] [address] XRay Report Signed Patient: YAO HAAS MR#: [id number] : 1975 Acct:[id number] Age/Sex: 43 / F ADM Date: 01/03/19 Loc: ED Attending Dr: Ordering Physician: CASSIE KNOX Date of Service: 01/03/19 Procedure(s): XR ankle 3+V LT Accession Number(s): [id number] cc: CASSIE KNOX Fluoro Time In Minutes: LEFT ANKLE 3 VIEWS INDICATION / CLINICAL INFORMATION: ankle injury with pain and swelling. COMPARISON: None available. FINDINGS: Negative. Signer Name: Alvarez Garber MD Signed: 01/03/2019 9:00 AM Workstation Name: [id number] Transcribed By: TM Dictated By: Alvarez Garber MD Electronically Authenticated By: Alvarez Garber MD Signed Date/Time: 01/03/19899 DD/ TD/TT: - Medical Decision Making This is a 43-year-old here for left ankle and foot pain after injury. Physical finding for tenderness to palpation with mild swelling to lateral malleolus left ankle and left outer foot. No bruising or ecchymotic area. X-ray findings for normal exam to left ankle and foot. Patient given Tylenol 975 mg 1 tablet by mouth emergency room without any relief. Her sister is here to pick her GIVE HER ONE NORCO AND DISCHARGE HER ON TYLENOL 3 AND TO FOLLOW-UP WITH ORTHOPEDIC DOCTOR. [facility] IN[facility]ED AND PATIENT GIVEN CRUTCHES. STARTED HOME IN STABLE CONDITION - Differential Diagnosis fracture versus sprain versus MSK pain Critical care attestation.: If time is entered above; I have spent that time in minutes in the direct care of this critically ill patient, excluding procedure time. ED Disposition Clinical Impression: Arthralgia of multiple sites Disposition: TO HOME OR SELFCARE Is pt being admited?: No Does the pt Need Aspirin: No Condition: Stable Instructions: Arthralgia (ED), RICE Therapy (ED), Crutch Instructions (ED) Additional Instructions: Please follow instructions and discharge instruction paperwork Please read discharge instruction paperwork If he condition worsens, return to the emergency room f/u with orthopedic doctor in 2-[address] heavy machinery while taking Tylenol No. 3 as it causes drowsiness Referrals: PALOMA WEIR MD [Primary Care Provider] - 3-5 Days ERIC MCKEON MD [Staff Physician] - 2-3 Days Forms: Work/School Release Form(ED)
[2019-01-03] MEDS ORDERED: TYLENOL PO ONE (07:46)
--- NOTE | 2019-01-03 09:01 | XRay Report ---
LEFT FOOT 3 VIEWS INDICATION / CLINICAL INFORMATION: foot injury with pain and swelling. COMPARISON: None available. FINDINGS: Negative. Signer Name: Alvarez Garber MD Signed: 01/03/2019 8:57 AM Workstation Name: [id number]
--- NOTE | 2019-01-03 09:04 | XRay Report ---
LEFT ANKLE 3 VIEWS INDICATION / CLINICAL INFORMATION: ankle injury with pain and swelling. COMPARISON: None available. FINDINGS: Negative. Signer Name: Alvarez Garber MD Signed: 01/03/2019 9:00 AM Workstation Name: [email or web address]
[2019-01-03] MEDS ORDERED: NORCO 10/325 PO ONE (09:41)
== END 2019-01-03 10:57 | disposition home or self-care (01) ==
LOC: ED 07:05
DX: M25.572 Pain in left ankle and joints of left foot (principal); R22.42 Localized swelling, mass and lump, left lower limb; I11.0 Hypertensive heart disease with heart failure; I50.9 Heart failure, unspecified; E11.9 Type 2 diabetes mellitus without complications; J45.909 Unspecified asthma, uncomplicated; I25.2 Old myocardial infarction; Z90.49 Acquired absence of other specified parts of digestive tract; Z90.710 Acquired absence of both cervix and uterus; Z98.890 Other specified postprocedural states; Z79.899 Other long term (current) drug therapy; Z91.018 Allergy to other foods; Z88.8 Allergy status to other drugs, medicaments and biological substances; Z91.030 Bee allergy status

== ENCOUNTER 2019-03-21 15:29 | Emergency (ER) | payer MEDICARE ==
[2019-03-21 15:37] VITALS: BP 128/84
--- NOTE | 2019-03-21 15:37 | Emergency Department Report ---
Blank Doc - Documentation Documentation: 43-year-old female that presents with SOB, CP, and COUGH. Stated CP worse with cough. This initial assessment/diagnostic orders/clinical plan/treatment(s) is/are subject to change based on patient's health status, clinical progression and re- assessment by fellow clinical providers in the ED. Further treatment and workup at subsequent clinical providers discretion. Patient/guardians urged not to elope from the ED as their condition may be serious if not clinically assessed and managed. Initial orders include: 1- Patient sent to [facility] for further evaluation and treatment 2- EKG 3- CXR
--- NOTE | 2019-03-21 16:24 | XRay Report ---
CHEST 2 VIEWS INDICATION: cough. COMPARISON: Chest x-ray from 11/23/2018 FINDINGS: Support devices: None. Heart: Within normal limits. Lungs/pleura: No acute air space or interstitial disease. No pneumothorax. Additional findings: None. IMPRESSION: 1. No acute findings. Signer Name: Homero Ocasio MD Signed: 03/21/2019 4:20 PM Workstation Name: [id number]
== END 2019-03-21 19:01 | disposition left against medical advice (07) ==
LOC: ED 15:29
DX: R06.02 Shortness of breath (principal); Z53.21 Procedure and treatment not carried out due to patient leaving prior to being seen by health care provider
CPT/HCPCS: 71046; 93005; 93010

== ENCOUNTER 2019-06-21 17:58 | Emergency (ER) | payer MEDICARE ==
[2019-06-21 18:32] VITALS: BP 128/91
--- NOTE | 2019-06-21 19:03 | Event Note ---
ED Screening Note ED Screening Note: CP abd pain SOB copper taste in the mouth began two days ago no leg swelling no recent travel no recent surgery no n/v/d no cough no recent illness no fever PMHx TIA, CVA, CHF, MA hysterectomy This initial assessment/diagnostic orders/clinical plan/treatment(s) is/are subject to change based on patients health status, clinical progression and re- assessment by fellow clinical providers in the ED. Further treatment and workup at subsequent clinical providers discretion. Patient/guardian urged not to elope from the ED as their condition may be serious if not clinically assessed and managed. Initial orders include: CP protocol
--- NOTE | 2019-06-21 19:36 | XRay Report ---
CHEST 2 VIEWS INDICATION: CP. COMPARISON: 03/21/2019 FINDINGS: Support devices: None. Heart: Within normal limits. Lungs/Pleura: No acute air space or interstitial disease. No significant pleural effusion. IMPRESSION: No acute findings. Signer Name: Ramírez Quezada MD Signed: 06/21/2019 7:32 PM Workstation Name: [id number]
[2019-06-21 20:02] LABS: Basophils # (Auto) 0.1 K/mm3 (0.0-0.1); Basophils % (Auto) 0.8 % (0.0-1.8); Eosinophils % (Auto) 0.2 % (0.0-4.3); Hematocrit 43.5 % (30.3-42.9); Hemoglobin 14.4 gm/dl (10.1-14.3); Lymphocytes % (Auto) 20.3 % (13.4-35.0); Mean Corpuscular HGB Conc 33 % (30-34); Mean Corpuscular Volume 81 fl (79-97); Monocytes % (Auto) 10.3 % (0.0-7.3); Platelet Count 304 K/mm3 (140-440); Red Blood Count 5.35 M/mm3 (3.65-5.03); Red Cell Distribution Width 13.3 % (13.2-15.2)
[2019-06-21 20:17] LABS: INR 1.06 (0.87-1.13)
[2019-06-21 20:18] LABS: Partial Thromboplastin Time 30.2 Sec. (24.2-36.6)
[2019-06-21 20:55] LABS: Alanine Aminotransferase 11 units/L (7-56); Albumin 4.2 g/dL (3.9-5); BUN/Creatinine Ratio 20; Blood Urea Nitrogen 18 mg/dL (7-17); Calcium 9.8 mg/dL (8.4-10.2); Hemolysis Index 1
== END 2019-06-22 01:10 | disposition left against medical advice (07) ==
LOC: ED 17:58
DX: R07.89 Other chest pain (principal); Z53.21 Procedure and treatment not carried out due to patient leaving prior to being seen by health care provider
CPT/HCPCS: 36415; 71046; 80053; 82805; 83690; 83735; 84100; 84443; 84484; 85025; 85610; 85730; 93005; 93010